=== PATIENT | female | born 1940 | race Caucasian/White ===

== ENCOUNTER 2016-10-18 03:37 | Emergency (ER) | payer MEDICARE, BC ==
[~2016-10-18] VITALS: Ht 170.2 cm; Wt 90.7 kg
[~2016-10-18 03:37] MED LIST: ALBU2.5V5 IH; ANAS1TAB PO; ASPI81TA9 PO; ATEN50TA PO; ATOR10TA60 PO; CHOL100017 PO; CIPR250T30 PO; DILT180C29 PO; FERR-26 PO; LISI10TA2 PO; LOSA50TA6 PO; OMEG-57 PO; PROAIR HFA8.5 GM IH; RIVA10TA PO; SOTA160T PO
[2016-10-18 04:29] LABS: BASO # 0.1 x10^3/uL (0.0-0.2); BASO % 1 % (0-3); EOS % 4 % (0-3); HEMATOCRIT 42.3 % (36.0-47.0); HEMOGLOBIN 13.8 g/dL (12.0-15.5); LYMPH # 2.3 x10^3/uL (1.0-4.8); LYMPH % 28 % (24-48); MEAN CORPUSCULAR HEMOGLOBIN 31 pg (25-35); MEAN CORPUSCULAR HGB CONC 33 g/dL (31-37); MEAN CORPUSCULAR VOLUME 95 fL (79-100); MONO % 8 % (0-9); NEUT % 59 % (31-73); PLATELET COUNT 278 x10^3/uL (140-400); RED BLOOD COUNT 4.45 x10^6/uL (3.50-5.40); RED CELL DISTRIBUTION WIDTH 14.5 % (11.5-14.5); WHITE BLOOD COUNT 8.4 x10^3/uL (4.0-11.0)
[2016-10-18 04:47] LABS: CREATININE 0.9 mg/dL (0.6-1.0); GFR 60.9; POTASSIUM 3.9 mmol/L (3.5-5.1)
[2016-10-18 04:53] LABS: ALBUMIN 3.6 g/dL (3.4-5.0); DIRECT BILIRUBIN 0.1 mg/dL (0.0-0.2); TOTAL BILIRUBIN 0.4 mg/dL (0.2-1.0); TOTAL PROTEIN 6.6 g/dL (6.4-8.2)
--- NOTE | 2016-10-18 05:13 | PHYS DOC ---
Past Medical History Past Medical History: A-Fib, Arrhythmia, Cancer, High Cholesterol, Hypertension , Other Additional Past Medical Histor: breast and lung cancer Past Surgical History: Hysterectomy, Other Additional Past Surgical Histo: trach, left masectomy, right upper lobectomy, left lower lobe removed Alcohol Use: Occasionally Drug Use: None Adult General Chief Complaint Chief Complaint: Palpitations HPI HPI 76-year-old female presenting the emergency department with fluttering since proximally 10 PM tonight. She denies chest pain or shortness of breath. She denies diaphoresis nausea vomiting. Location chest. Duration intermittent. She describes it as feeling an irregular heartbeat. She has a history of A. fib. Symptoms are nonradiating. No specific timing. No alleviating or exacerbating factors. Review of Systems Review of Systems ROS negative for chest pain shortness of breath nausea vomiting diaphoresis abdominal pain. All other review of systems is negative unless otherwise noted in history of present illness. Allergies Allergies Allergies Coded Allergies Type Severity Reaction Last Updated Verified No Known Drug Allergies 05/12/16 No Physical Exam Physical Exam Constitutional: Well developed, well nourished, no acute distress, non-toxic appearance. [] HENT: Normocephalic, atraumatic, bilateral external ears normal, oropharynx moist, no oral exudates, nose normal. [] Eyes: PERRLA, EOMI, conjunctiva normal, no discharge. Neck: Normal range of motion, no tenderness, supple, no stridor. [] Cardiovascular:Heart rate regular rhythm, no murmur Lungs & Thorax: Bilateral breath sounds clear to auscultation [] Abdomen: Bowel sounds normal, soft, no tenderness, no masses, no pulsatile masses. Skin: Warm, dry, no erythema, no rash. [] Back: No tenderness, no CVA tenderness. Extremities: No tenderness, no cyanosis, no clubbing, ROM intact, no edema. Neurologic: Alert and oriented X 3, normal motor function, normal sensory function, no focal deficits noted. [] Psychologic: Affect normal, judgement normal, mood normal. [] Current Patient Data Vital Signs Vital Signs Date Time Temp Pulse Resp B/P Pulse Ox O2 Delivery O2 Flow Rate FiO2 10/18/16 03:41 97.8 111 20 145/100 97 Room Air 97.8 Lab Values Laboratory Tests Test 10/18/16 04:05 White Blood Count 8.4x10^3/uL (4.0-11.0) Red Blood Count 4.45x10^6/uL (3.50-5.40) Hemoglobin 13.8g/dL (12.0-15.5) Hematocrit 42.3% (36.0-47.0) Mean Corpuscular Volume 95fL (79-100) Mean Corpuscular Hemoglobin 31pg (25-35) Mean Corpuscular Hemoglobin Concent 33g/dL (31-37) Red Cell Distribution Width 14.5% (11.5-14.5) Platelet Count 278x10^3/uL (140-400) Neutrophils (%) (Auto) 59% (31-73) Lymphocytes (%) (Auto) 28% (24-48) Monocytes (%) (Auto) 8% (0-9) Eosinophils (%) (Auto) 4% (0-3) H Basophils (%) (Auto) 1% (0-3) Neutrophils # (Auto) 5.0x10^3uL (1.8-7.7) Lymphocytes # (Auto) 2.3x10^3/uL (1.0-4.8) Monocytes # (Auto) 0.7x10^3/uL (0.0-1.1) Eosinophils # (Auto) 0.3x10^3/uL (0.0-0.7) Basophils # (Auto) 0.1x10^3/uL (0.0-0.2) Sodium Level 146mmol/L (136-145) H Potassium Level 3.9mmol/L (3.5-5.1) Chloride Level 109mmol/L (98-107) H Carbon Dioxide Level 25mmol/L (21-32) Anion Gap 12 (6-14) Blood Urea Nitrogen 15mg/dL (7-20) Creatinine 0.9mg/dL (0.6-1.0) Estimated GFR (Cockcroft-Gault) 60.9 Glucose Level 123mg/dL (70-99) H Calcium Level 9.0mg/dL (8.5-10.1) Total Bilirubin 0.4mg/dL (0.2-1.0) Direct Bilirubin 0.1mg/dL (0.0-0.2) Aspartate Amino Transferase (AST) 14U/L (15-37) L Alanine Aminotransferase (ALT) 22U/L (14-59) Alkaline Phosphatase 107U/L (46-116) Troponin I Quantitative < 0.017ng/mL (0.000-0.055) QI-Mtd-Y-Type Natriuretic Peptide 331pg/mL (0-449) Total Protein 6.6g/dL (6.4-8.2) Albumin 3.6g/dL (3.4-5.0) Lipase 198U/L (73-393) Laboratory Tests 10/18/16 04:05 Laboratory Tests 10/18/16 04:05 EKG EKG EKG shows a irregular rhythm with a regular rate. Ninole is leftward. Intervals within normal limits. ST segments congruent. Radiology/Procedures Radiology/Procedures [] Chest x-ray similar to previous. No definite infiltrate. No pneumothorax. Course & Med Decision Making Course & Med Decision Making Pertinent Labs and Imaging studies reviewed. (See chart for details) 76-year-old female presenting to the emergency department today with palpitations. She has a history of A. fib and has A. fib on EKG without tachycardia. Vital signs initially her heart rate was 110. Without any intervention the patient's heart rate came down to 80 within 30 minutes. Otherwise mildly hypertensive at 145. Afebrile. Physical exam unremarkable. CBC unremarkable. Chemistry panel showed mild hyperglycemia. Otherwise negative troponin. Chest x-ray unremarkable for acute pathology. Similar to previous. On second evaluation the patient's heart rate was in the 80s. She was feeling asymptomatic. CHADS VASC score of 4. (Hypertension female and age over 75). She likely would benefit from warfarin therapy. I will refer her to her primary care physician to initiate this over the next 2-3 days. She was subsequently discharged home to follow up with her primary care physician for outpatient workup and care. After discussing with the patient about the need for warfarin, it appears the patient is on an oral anticoagulant which should be sufficient for anticoagulation. Dragon Disclaimer Dragon Disclaimer This electronic medical record was generated, in whole or in part, using a voice recognition dictation system. Departure Departure Impression: Primary Impression: Palpitation Disposition: 01 HOME, SELF-CARE Condition: STABLE Referrals: TOY DAWSON MD (PCP) Patient Instructions: Atrial Fibrillation, [id number] Additional Instructions: Thank you for allowing us to participate in your care today. You likely would benefit from anticoagulation for your atrial fibrillation. Follow-up with your primary care physician in 2-3 days. Followup with your primary care physician in 3 days if your symptoms do not improve. If you do not have a primary care provider you can ask for a list of our primary care providers. Return to the emergency department you have any new or concerning findings. This should be evaluated by the primary care physician and any necessary consulting services for continued management within a few days after discharge. Return to emergency room if you have any new or concerning symptoms including but not limited to fever, chills, nausea, vomiting, intractable pain, any new rashes, chest pain, shortness of air, uncontrolled bleeding, difficulty breathing, and/or vision loss. BETY PAZ MD Oct 18, 2016 05:13
[2016-10-18 05:22] VITALS: BP 115/69
--- NOTE | 2016-10-18 07:44 | RAD ---
Indication: Palpitation and fatigue. Technique: Upright portable chest radiograph was obtained. Comparison is from October 11, 2016. Findings: Linear band of suspected scarring is noted in the right lung base. The heart is not enlarged. There is no definite heart failure. Leads overlie the patient. Right apical density is similar to prior exam, based on prior CT this may represent radiation change related to known lung cancer. Continued follow-up CTs would be beneficial. Impression: No acute thoracic findings.
--- NOTE | 2016-10-18 11:35 | EKG ---
[facility] [address] [place] [address] Test Date: 2016-10-18 Test Time: 03:46:37 Pat Name: MARGARITO SELF Department: Room: Gender: F Intervention Specialist: : 1940 Requested By: BETY PAZ Order Number: [id number] Reading MD: Measurements Intervals [place] Rate: 92 P: LA: QRS: -14 QRSD: 74 T: 97 QT: 370 QTc: 463 Interpretive Statements IRREGULAR RHYTHM, NO P-WAVE FOUND LEFTWARD AXIS T ABNORMALITY IN HIGH LATERAL LEADS RI6.01 Unconfirmed report No previous ECG available for comparison
== END 2016-10-18 05:31 | disposition home or self-care (01) ==
LOC: ER 03:37
DX: R00.2 Palpitations (principal); I48.91 Unspecified atrial fibrillation; E78.00 Pure hypercholesterolemia, unspecified; I10 Essential (primary) hypertension
CPT/HCPCS: 36415; 71010; 80048; 80076; 83690; 83880; 84484; 85027; 93005; 99285-25

== ENCOUNTER → 2016-11-13 | Outpatient (CLI) | payer MEDICARE, BC ==
[2016-10-18 05:22] VITALS: BP 115/69
--- NOTE | 2016-11-13 10:29 | RAD ---
Indication: Six-month follow-up of lung carcinoma. Axial imaging through the chest was performed without contrast. Comparison is made with prior CT from 05/05/2016. No axillary lymphadenopathy is identified. Small lymph nodes in the paratracheal location appears stable. No hilar lymphadenopathy is detected. No pericardial or pleural effusion is detected. Previously noted streaky and glass opacity in the right upper lobe is again noted. There is some adjacent nodularity, largest proximal 11 mm in size and similar to prior. The multiple additional tiny nodular opacities are present. These appear to be slightly larger when compared with prior exam. Calcified granulomas are also noted. A nodular density in the right lower lobe image 49 appears slightly larger measuring 6 mm compared with 4 mm on prior exam. The upper abdomen is unremarkable. The bony structures are nonacute. Impression: Slight worsening in the appearance of the chest when compared with study from April. Nodular densities in the right upper lobe and right lower lobe have all increased slightly in size and may represent metastatic nodules. No definite thoracic lymphadenopathy or effusion is detected. PQRS Compliance Statement: One or more of the following individualized dose reduction techniques were utilized for this examination: 1. Automated exposure control 2. Adjustment of the mA and/or kV according to patient size 3. Use of iterative reconstruction technique
== END | disposition home or self-care (01) ==
LOC: CT 14:02
PROVIDERS: ATTEND Radiology Radiation Oncology
DX: C34.90 Malignant neoplasm of unspecified part of unspecified bronchus or lung (principal)
CPT/HCPCS: 71250

== ENCOUNTER 2016-12-04 12:29 | Inpatient (IN) | payer MEDICARE, BC ==
[~2016-12-04] VITALS: Ht 170.2 cm; Wt 92.1 kg
[~2016-12-04 12:29] MED LIST changes: +ASPI-482 PO; +DILT360C PO
--- NOTE | 2016-12-04 12:53 | PHYS DOC ---
Past Medical History Past Medical History: A-Fib, Arrhythmia, Cancer, High Cholesterol, Hypertension , Other Additional Past Medical Histor: breast and lung cancer Past Surgical History: Hysterectomy, Other Additional Past Surgical Histo: trach, left masectomy, right upper lobectomy, left lower lobe removed Alcohol Use: Occasionally Drug Use: None Adult General Chief Complaint Chief Complaint: SHORTNESS OF BREATH HPI HPI Patient is a 76 year old male who presents with was of breath and wheezing. According to patient she started feeling poorly about a week ago with diarrhea fevers and chills and a nonproductive cough. She was seen by her primary care physician partially 3 days ago started Medrol Dosepak. Today she followed up and was positive for influenza. She denies any fevers chills or productive cough this time. She complains about a nonproductive cough and wheezing. She states she sore from coughing so much. She does have a past medical history of breast cancer, lung cancer with right and left lobectomy. Review of Systems Review of Systems Constitutional: Denies fever or chills [] Eyes: Denies change in visual acuity, redness, or eye pain [] HENT: Denies nasal congestion or sore throat [] Respiratory: Positive for cough and shortness of breath Cardiovascular: No additional information not addressed in HPI [] GI: Denies abdominal pain, nausea, vomiting, bloody stools or diarrhea [] : Denies dysuria or hematuria [] Musculoskeletal: Denies back pain or joint pain [] Integument: Denies rash or skin lesions [] Neurologic: Denies headache, focal weakness or sensory changes [] Endocrine: Denies polyuria or polydipsia [] Current Medications Current Medications Current Medications Medications (Trade) Dose Ordered Sig/Lanie Start Time Stop Time Status Last Admin Dose Admin Albuterol/ Ipratropium (Duoneb) 3 ml 1X ONCE 12/04/16 14:00 12/04/16 14:07 DC Azithromycin (Zithromax 500mg Ivpb For Omni) 250 ml @ 250 mls/hr 1X ONCE 12/04/16 14:00 12/04/16 14:59 12/04/16 14:22 250 MLS/HR Allergies Allergies Allergies Coded Allergies Type Severity Reaction Last Updated Verified No Known Drug Allergies 05/12/16 No Physical Exam Physical Exam Constitutional: Well developed, well nourished, no acute distress, non-toxic appearance. [] HENT: Normocephalic, atraumatic, bilateral external ears normal, oropharynx moist, no oral exudates, nose normal. [] Eyes: PERRLA, EOMI, conjunctiva normal, no discharge. [] Neck: Normal range of motion, no tenderness, supple, no stridor. [] Cardiovascular:Heart rate regular rhythm, no murmur [] Lungs & Thorax: Coarse bilaterally with expiratory wheezing Abdomen: Bowel sounds normal, soft, no tenderness, no masses, no pulsatile masses. [] Skin: Warm, dry, no erythema, no rash. [] Back: No tenderness, no CVA tenderness. [] Extremities: No tenderness, no cyanosis, no clubbing, ROM intact, no edema. [] Neurologic: Alert and oriented X 3, normal motor function, normal sensory function, no focal deficits noted. [] Psychologic: Affect normal, judgement normal, mood normal. [] Current Patient Data Vital Signs Vital Signs Date Time Temp Pulse Resp B/P Pulse Ox O2 Delivery O2 Flow Rate FiO2 12/04/16 12:50 98.5 60 22 148/72 94 Room Air 98.5 Lab Values Laboratory Tests Test 12/04/16 13:20 White Blood Count 8.7x10^3/uL (4.0-11.0) Red Blood Count 4.09x10^6/uL (3.50-5.40) Hemoglobin 12.8g/dL (12.0-15.5) Hematocrit 38.9% (36.0-47.0) Mean Corpuscular Volume 95fL (79-100) Mean Corpuscular Hemoglobin 31pg (25-35) Mean Corpuscular Hemoglobin Concent 33g/dL (31-37) Red Cell Distribution Width 14.1% (11.5-14.5) Platelet Count 232x10^3/uL (140-400) Neutrophils (%) (Auto) 88% (31-73) H Lymphocytes (%) (Auto) 8% (24-48) L Monocytes (%) (Auto) 3% (0-9) Eosinophils (%) (Auto) 0% (0-3) Basophils (%) (Auto) 1% (0-3) Neutrophils # (Auto) 7.6x10^3uL (1.8-7.7) Lymphocytes # (Auto) 0.7x10^3/uL (1.0-4.8) L Monocytes # (Auto) 0.3x10^3/uL (0.0-1.1) Eosinophils # (Auto) 0.0x10^3/uL (0.0-0.7) Basophils # (Auto) 0.1x10^3/uL (0.0-0.2) Platelet Estimate Pending Prothrombin Time 16.3SEC (11.7-14.0) H Prothrombin Time INR 1.4 (0.8-1.1) H Sodium Level 140mmol/L (136-145) Potassium Level 4.1mmol/L (3.5-5.1) Chloride Level 105mmol/L (98-107) Carbon Dioxide Level 25mmol/L (21-32) Anion Gap 10 (6-14) Blood Urea Nitrogen 17mg/dL (7-20) Creatinine 0.9mg/dL (0.6-1.0) Estimated GFR (Cockcroft-Gault) 60.9 Glucose Level 162mg/dL (70-99) H Calcium Level 9.0mg/dL (8.5-10.1) Magnesium Level 1.8mg/dL (1.8-2.4) Total Bilirubin 0.3mg/dL (0.2-1.0) Direct Bilirubin 0.1mg/dL (0.0-0.2) Aspartate Amino Transferase (AST) 18U/L (15-37) Alanine Aminotransferase (ALT) 17U/L (14-59) Alkaline Phosphatase 99U/L (46-116) Creatine Kinase 71U/L (26-192) Creatine Kinase MB (Mass) 0.7ng/mL (0.0-3.6) Creatine Kinase MB Relative Index 1.0% (0-4) Troponin I Quantitative < 0.017ng/mL (0.000-0.055) PF-Yga-I-Type Natriuretic Peptide 1808pg/mL (0-449) H Total Protein 7.0g/dL (6.4-8.2) Albumin 3.4g/dL (3.4-5.0) Thyroid Stimulating Hormone (TSH) 0.590uIU/mL (0.358-3.74) Laboratory Tests 12/04/16 13:20 Laboratory Tests 12/04/16 13:20 EKG EKG Irregular rhythm with a rate of [address] elevations or T-wave inversions, Leftward axis, as interpreted by me. Radiology/Procedures Radiology/Procedures [facility] [address] [place] [address] IMAGING REPORT Signed PATIENT: MARGARITO SELF ACCOUNT: [id number] : 1940 LOCATION: ER AGE: 76 SEX: F EXAM STATUS: PRE ER ORD. PHYSICIAN: DARIA KUMAR MD REASON: soa PROCEDURE: CHEST PA & LATERAL Chest, 2 views, 12/04/2016: History: Cough Comparison is made to a study from 10/18/2016. The heart size is within normal limits. There is calcific plaquing of the aorta. The pulmonary vascularity is normal. There is linear scarring in the right base. Surgical clips are present medially in the right lower chest. There is a small right apical pleural-parenchymal opacity with faint adjacent pulmonary nodularity. This appears to be unchanged. It was better delineated on the 11/13/2016 CT study. There are new mild streaky left basilar opacities partially obscuring the hemidiaphragm. There is no evidence of pleural fluid. IMPRESSION: 1. Right apical pleural-parenchymal opacities appear to be unchanged since 10/18/2016. By history this is a treated lung malignancy. 2. Mild right basilar scarring. 3. Minimal left basilar linear atelectasis. DICTATED and SIGNED BY: FELECIA CROWELL MD DATE: 12/04/16 1328 CC: DARIA KUMAR MD; EDNA VAZQUEZ MD ~ Impressions: copd excerbation Course & Med Decision Making Course & Med Decision Making Pertinent Labs and Imaging studies reviewed. (See chart for details) S x-ray labs show any acute abdomen allergies. Patient's been given azithromycin IV, a Medrol and duo nebs and will be admitted to Dr. Vazquez with pulmonary consultation. Dragon Disclaimer Dragon Disclaimer This electronic medical record was generated, in whole or in part, using a voice recognition dictation system. Departure Departure Impression: Primary Impression: COPD exacerbation Disposition: ADMITTED INPATIENT Admitting Physician: Edna Vazquez Condition: STABLE Referrals: EDNA VAZQUEZ MD (PCP) DARIA KUMAR MD Dec 04, 2016 12:53
--- NOTE | 2016-12-04 13:35 | RAD ---
Chest, 2 views, 12/04/2016: History: Cough Comparison is made to a study from 10/18/2016. The heart size is within normal limits. There is calcific plaquing of the aorta. The pulmonary vascularity is normal. There is linear scarring in the right base. Surgical clips are present medially in the right lower chest. There is a small right apical pleural-parenchymal opacity with faint adjacent pulmonary nodularity. This appears to be unchanged. It was better delineated on the 11/13/2016 CT study. There are new mild streaky left basilar opacities partially obscuring the hemidiaphragm. There is no evidence of pleural fluid. IMPRESSION: 1. Right apical pleural-parenchymal opacities appear to be unchanged since 10/18/2016. By history this is a treated lung malignancy. 2. Mild right basilar scarring. 3. Minimal left basilar linear atelectasis.
[2016-12-04 13:43] LABS: BASO # 0.1 x10^3/uL (0.0-0.2); BASO % 1 % (0-3); EOS % 0 % (0-3); HEMATOCRIT 38.9 % (36.0-47.0); HEMOGLOBIN 12.8 g/dL (12.0-15.5); LYMPH # 0.7 x10^3/uL (1.0-4.8); LYMPH % 8 % (24-48); MEAN CORPUSCULAR HEMOGLOBIN 31 pg (25-35); MEAN CORPUSCULAR HGB CONC 33 g/dL (31-37); MEAN CORPUSCULAR VOLUME 95 fL (79-100); MONO % 3 % (0-9); NEUT % 88 % (31-73); PLATELET COUNT 232 x10^3/uL (140-400); RED BLOOD COUNT 4.09 x10^6/uL (3.50-5.40); RED CELL DISTRIBUTION WIDTH 14.1 % (11.5-14.5); WHITE BLOOD COUNT 8.7 x10^3/uL (4.0-11.0)
[2016-12-04 13:52] LABS: INR 1.4 (0.8-1.1); PROTHROMBIN TIME PATIENT 16.3 SEC (11.7-14.0)
[2016-12-04 13:56] LABS: CREATININE 0.9 mg/dL (0.6-1.0); GFR 60.9; POTASSIUM 4.1 mmol/L (3.5-5.1)
[2016-12-04] MEDS ORDERED: IPRATRPIUM/ALBUTEROL 0.5/2.5MG 3 ML NEBU. NEB ONE (14:00)
[2016-12-04] MEDS ORDERED: AZITHRMYCN 500MG IVPB FOR OMNI 250 ML IV ONE (14:00)
[2016-12-04 14:02] LABS: ALBUMIN 3.4 g/dL (3.4-5.0); DIRECT BILIRUBIN 0.1 mg/dL (0.0-0.2); MAGNESIUM 1.8 mg/dL (1.8-2.4); TOTAL BILIRUBIN 0.3 mg/dL (0.2-1.0)
[2016-12-04 14:09] LABS: CKMB MASS 0.7 ng/mL (0.0-3.6)
[2016-12-04] MEDS ORDERED: methylPREDNISolone SOD SUCC PF 125 MG/2 ML VIAL. IV ONE (14:30)
[2016-12-04] MEDS ORDERED: ONDANSETRON PF 4 MG/2 ML VIAL. IV PRN (14:30)
--- NOTE | 2016-12-04 15:42 | ACF ---
Admission Forms Criteria COPD Clinical Indications for Admission to Inpatient Care (Place 'X' for any and all applicable criteria): Admission is indicated for ANY ONE of the following (1)(2)(3): [X]I. Acute exacerbation by high-risk comorbidity (e.g., pneumonia, dysrhythmia, heart failure, pleural effusion, pneumothorax) or severe underlying COPD (e.g., steroid dependent) [ ]II. Inpatient admission required rather than observation care (see Chronic Obstructive Pulmonary Disease: Observation Care) because of ANY ONE of the following: [ ]a) New or pre-existing signs or symptoms of COPD (eg, dyspnea or Tachypnea at rest or with minimal activity) that persist despite outpatient and observation care treatment [ ]b) New-onset hypoxemia (room air SaO2 less than 90%, PO2 less than 60 mm Hg (8.0 kPa)) that persists despite outpatient and observation care treatment [ ]c) Worsening of pre-existing hypoxemia (eg, new or increased requirement for supplemental oxygen to maintain oxygenation at baseline level) that persists despite outpatient and observation care treatment, with oxygen treatment needs performable only in acute inpatient setting [ ]d) Hypercarbia (PCO2 greater than 40 mm Hg (5.3 kPa))-induced respiratory acidosis (pH less than 7.35) that persists despite outpatient and observation care treatment [ ]e) Supplemental oxygen or respiratory treatments for over 24 hours that are performable only in acute inpatient setting [ ]f) Chest tube placement with active evacuation (e.g., suction, drainage) (5) [ ]g) Other condition, treatment or monitoring requiring inpatient admission [ ]III. Planned invasive surgical or diagnostic procedures requiring acute- care hospitalization [ ]IV. Acute respiratory failure (e.g., uncompensated hypercarbia, severe hypoxemia) [ ]V. Severe comorbid condition (e.g., severe steroid myopathy, acute vertebral fracture) that has acutely worsened pulmonary function [ ]. Confusion state, lethargy, obtundation, stupor or coma Extended stay beyond goal length of stay may be needed for (31)(32): [ ]a ) Respiratory Failure. [ ]b) Severe or persisting hypoxemia or hypercarbia [ ]c) Severe or persistent dyspnea [ ]d) Comorbidities (e.g. chronic heart failure, atrial fibrillation with rapid response, pneumonia) [ ]e) Malnutrition The original [facility] content created by [facility] has been revised. The portions of the content which have been revised are identified through the use of italic text or in bold, and [facility] has neither reviewed nor approved the modified material. All other unmodified content is copyright [facility]. Please see references footnoted in the original [facility] edition 2016 Admission Criteria Met?: Yes LATRICE VEE. Dec 04, 2016 15:42
[2016-12-04 15:53] LABS: BILIRUBIN,URINE NEGATIVE (NEG); GLUCOSE,URINE NEGATIVE (NEG); NITRITE,URINE NEGATIVE (NEG); PROTEIN,URINE NEGATIVE (NEG-TRACE); UROBILINOGEN,URINE 0.2 mg/dL (0.2 mg/dL)
[2016-12-04 16:14] LABS: BACTERIA,URINE FEW /HPF (0-FEW); SQUAMOUS EPITHELIAL CELL,UR FEW /LPF; WBC,URINE OCC /HPF (0-4)
[2016-12-04 19:00] VITALS: BP 104/69
[2016-12-04 19:56] LABS: % BASOS 2 % (0-3); PLT ESTIMATE ADEQUATE (ADEQUATE)
[2016-12-04] MEDS ORDERED: OSELTAMIVIR 30 MG CAPSULE PO SCH (21:00)
[2016-12-04] MEDS ORDERED: GUAIFENESIN DM 200MG/20MG 10 ML SYRUP. PO PRN (21:00)
[2016-12-04] MEDS ORDERED: ATEN50TA PO (21:53)
[2016-12-04] MEDS ORDERED: NON FORMULARY ITEM (Albuterol Sulfate (Proair Hfa Inhaler) 2 PUFF) IH SCH (22:15)
[2016-12-04] MEDS: RIVAROXABAN 10 MG TABLET. PO SCH (22:43)
[2016-12-04] MEDS: ATORVASTATIN CALCIUM 10 MG TABLET. PO SCH (22:43)
[2016-12-04 23:00] VITALS: BP 118/45
[2016-12-04] MEDS: ALBUTEROL SULFATE 2.5 MG/3 ML NEBU. INH PRN (23:22)
[2016-12-05] MEDS: ANTI-COAG MONITOR BY PHARMACY. MC PRN ×2 (02:07→10:38)
[2016-12-05 03:00] VITALS: BP 143/67
[2016-12-05 04:00] LABS: BASO % 0 % (0-3); EOS % 0 % (0-3); HEMATOCRIT 38.8 % (36.0-47.0); HEMOGLOBIN 12.7 g/dL (12.0-15.5); LYMPH # 0.7 x10^3/uL (1.0-4.8); LYMPH % 13 % (24-48); MEAN CORPUSCULAR HEMOGLOBIN 31 pg (25-35); MEAN CORPUSCULAR HGB CONC 33 g/dL (31-37); MEAN CORPUSCULAR VOLUME 94 fL (79-100); MONO % 4 % (0-9); NEUT % 82 % (31-73); PLATELET COUNT 221 x10^3/uL (140-400); RED BLOOD COUNT 4.12 x10^6/uL (3.50-5.40); RED CELL DISTRIBUTION WIDTH 13.9 % (11.5-14.5); WHITE BLOOD COUNT 5.5 x10^3/uL (4.0-11.0)
[2016-12-05 04:55] LABS: CALCIUM 8.7 mg/dL (8.5-10.1); CREATININE 0.9 mg/dL (0.6-1.0); GFR 60.9; POTASSIUM 4.2 mmol/L (3.5-5.1)
[2016-12-05 07:00] VITALS: BP 138/72
[2016-12-05] MEDS ORDERED: PREDNISONE 20 MG TABLET PO ONE (08:15)
--- NOTE | 2016-12-05 08:26 | PDOC1 ---
History and Physical Date of Admission Date of Admission DATE: 12/04/16 Identification/Chief Complaint Chief Complaint Difficulties breathing Source Source: Patient History of Present Illness History of Present Illness Pt states that she has been ill since last weekend. Her had a cold which she thought she had caught. She saw Dr. Vazquez earlier this weekend and was started on a low dose steroid. She did not feel that she was getting better and seemed to have increased difficulty breathing She came to see Dr. Vazquez yesterday and tested positive for the flu; admitted to the hospital for failing outpatient treatment. Pt has history of lung cancer x2, s/p resection. She also has history of pulmonary embolism. Past Medical History Cardiovascular: AFIB, HTN, Hyperlipidemia Pulmonary: COPD, Pulmonary embolus, Other GI: No pertinent hx Heme/Onc: Cancer (Lung Cancerx2, Breast Cancer) Hepatobiliary: No pertinent hx Psych: No pertinent hx Rheumatologic: No pertinent hx Infectious disease: No pertinent hx ENT: No pertinent hx Renal/: No pertinent hx Endocrine: No pertinent hx Dermatology: No pertinent hx Past Surgical History Past Surgical History: Mastectomy, Hysterectomy, Other (RLL and YENI lobectomy) Family History Family History: Cancer (Father- leukemia, Brother- colon cancer), Other (Sister - Brain aneurysm) Social History Smoke: Quit ALCOHOL: none Drugs: None Current Problem List Problem List Problems Medical Problems: (1) COPD exacerbation Status: Acute Problems: Current Medications Current Medications Current Medications Azithromycin (Zithromax 500mg Ivpb For Omni) 250 ml @ 250 mls/hr 1X ONCE IV Last administered on 12/04/16 14:22; Start 12/04/16 at 14:00; Stop 12/04/16 at 14:59; Status DC Albuterol/ Ipratropium (Duoneb) 3 ml 1X ONCE NEB Last administered on 14:31; Start 12/04/16 at 14:00; Stop 12/04/16 at 14:07; Status DC Methylprednisolone Sodium Succinate (Solu-Medrol 125mg Vial) 125 mg 1X ONCE IV Last administered on 12/04/16t 15:08; Start 12/04/16 at 14:30; Stop 12/04/16 at 14:33; Status DC Ondansetron HCl (Zofran) 4 mg PRN Q8HRS PRN IV NAUSEA/VOMITING; Start 12/04/16 at 14:30; Stop 12/05/16 at 14:29 Oseltamivir Phosphate (Tamiflu) 30 mg BID PO Last administered on 12/04/16 21: 48; Start 12/04/16 at 21:00; Stop 12/05/16 at 08:01; Status DC Guaifenesin (Robitussin Dm) 10 ml PRN Q6HRS PRN PO COUGH Last administered on 21:48; Start 12/04/16 at 21:00 Albuterol Sulfate (Ventolin Neb Soln) 2.5 mg PRN QID PRN INH SHORTNESS OF BREATH Last administered on 12/04/16 23:22; Start 12/04/16 at 22:15 Atorvastatin Calcium (Lipitor) 10 mg HS PO ; Start 12/05/16 at 21:00; Stop 12/05 at 21:00; Status DC Non-Formulary Medication 2 puff PRN Q4-6HRS IH ; Start 12/04/16 at 22:15; Status UNV Rivaroxaban (Xarelto) 20 mg HS PO ; Start 12/05/16 at 21:00; Stop 12/05/16 at 21 :00; Status DC Rivaroxaban (Xarelto) 20 mg HS PO Last administered on 12/04/16 22:43; Start 12/04/16 at 22:30 Atorvastatin Calcium (Lipitor) 10 mg HS PO Last administered on 12/04/16 22:43 ; Start 12/04/16 at 22:30 Info (Anti-Coagulation Monitoring By Pharmacy) 1 each PRN DAILY PRN MC SEE COMMENTS Last administered on 12/05/16 02:07; Start 12/04/16 at 22:30 Oseltamivir Phosphate (Tamiflu) 75 mg BID PO ; Start 12/05/16 at 09:00; Stop at 08:59 Aspirin (Ecotrin) 81 mg DAILY PO ; Start 12/05/16 at 09:00; Status UNV Atenolol (Tenormin) 50 mg DAILY PO ; Start 12/05/16 at 09:00; Status UNV Losartan Potassium (Cozaar) 50 mg DAILY PO ; Start 12/05/16 at 09:00; Status UNV Active Scripts Active Reported Atenolol 50 Mg Tablet 1 Tab PO DAILY Aspir 81 (Aspirin) 81 Mg Tablet.dr 81 Mg PO DAILY Losartan Potassium 50 Mg Tablet 50 Mg PO DAILY Proair Hfa Inhaler (Albuterol Sulfate) 8.5 Gm Hfa.aer.ad 2 Puff IH PRN Q4-6HRS Xarelto (Rivaroxaban) 10 Mg Tablet 20 Mg PO HS Atorvastatin Calcium 10 Mg Tablet 10 Mg PO HS Albuterol Sulfate Neb Soln (Albuterol Sulfate) 2.5 Mg/3 Ml Vial.neb 2.5 Mg IH PRN QID PRN Allergies Allergies: Coded Allergies: Lisinopril (Verified Adverse Reaction, Intermediate, Cough, 12/05/16) ROS General: YES: Chills, Fatigue PSYCHOLOGICAL ROS: No: Anxiety, Depression Eyes: No Decreased vision, No Eye Pain HEENT: YES: Nasal discharge, Sore Throat, No: Nasal congestion ALLERGY AND IMMUNOLOGY: YES: Post Nasal Drip, No: Hives Hematological and Lymphatic: No: Bleeding Problems, Blood Clots Respiratory: YES: Cough, Shortness of breath, No: Sputum Changes Cardiovascular: No Chest Pain, No Edema, No Palpitations Gastrointestinal: No Abdominal Pain, No Diarrhea, No Nausea, No Vomiting Genitourinary: No Dysuria, No Urgency Musculoskeletal: Yes Joint Pain, No Muscle Pain Neurological: No Confusion, No Headaches, No Numbness/Tingling Skin: No Rash, No Skin Lesion Changes Physical Exam General: Alert, Oriented X3, Cooperative HEENT: Atraumatic, PERRLA, EOMI, Mucous membr. moist/pink Lungs: Other (rhonchi and wheezing throughout, worse on the right than the left ) Heart: RRR, no rubs, no gallops, no murmurs Abdomen: Normal bowel sounds, Soft, No tenderness, No hepatosplenomegaly Extremities: No clubbing, No cyanosis, No edema Skin: No rashes, No breakdown, No significant lesion Neuro: Normal speech, Cranial nerves 3-12 NL Psych/Mental Status: Mental status NL, Mood NL Vitals Vitals Vital Signs Date Time Temp Pulse Resp B/P Pulse Ox O2 Delivery O2 Flow Rate FiO2 12/05/16 03:00 97.6 54 16 143/67 96 97.6 12/04/16 23:22 Room Air Labs Labs Laboratory Tests Test 12/04/16 13:20 12/04/16 15:40 12/04/16 22:00 12/05/16 03:00 White Blood Count 8.7x10^3/uL (4.0-11.0) 5.5x10^3/uL (4.0-11.0) Red Blood Count 4.09x10^6/uL (3.50-5.40) 4.12x10^6/uL (3.50-5.40) Hemoglobin 12.8g/dL (12.0-15.5) 12.7g/dL (12.0-15.5) Hematocrit 38.9% (36.0-47.0) 38.8% (36.0-47.0) Mean Corpuscular Volume 95fL (79-100) 94fL (79-100) Mean Corpuscular Hemoglobin 31pg (25-35) 31pg (25-35) Mean Corpuscular Hemoglobin Concent 33g/dL (31-37) 33g/dL (31-37) Red Cell Distribution Width 14.1% (11.5-14.5) 13.9% (11.5-14.5) Platelet Count 232x10^3/uL (140-400) 221x10^3/uL (140-400) Neutrophils (%) (Auto) 88% (31-73) 82% (31-73) Lymphocytes (%) (Auto) 8% (24-48) 13% (24-48) Monocytes (%) (Auto) 3% (0-9) 4% (0-9) Eosinophils (%) (Auto) 0% (0-3) 0% (0-3) Basophils (%) (Auto) 1% (0-3) 0% (0-3) Neutrophils # (Auto) 7.6x10^3uL (1.8-7.7) 4.6x10^3uL (1.8-7.7) Lymphocytes # (Auto) 0.7x10^3/uL (1.0-4.8) 0.7x10^3/uL (1.0-4.8) Monocytes # (Auto) 0.3x10^3/uL (0.0-1.1) 0.2x10^3/uL (0.0-1.1) Eosinophils # (Auto) 0.0x10^3/uL (0.0-0.7) 0.0x10^3/uL (0.0-0.7) Basophils # (Auto) 0.1x10^3/uL (0.0-0.2) 0.0x10^3/uL (0.0-0.2) Segmented Neutrophils % 89% (35-66) Band Neutrophils % 1% (0-9) Lymphocytes % 5% (24-48) Monocytes % 3% (0-10) Basophils % 2% (0-3) Platelet Estimate Adequate (ADEQUATE) Prothrombin Time 16.3SEC (11.7-14.0) Prothromb Time International Ratio 1.4 (0.8-1.1) Sodium Level 140mmol/L (136-145) 144mmol/L (136-145) Potassium Level 4.1mmol/L (3.5-5.1) 4.2mmol/L (3.5-5.1) Chloride Level 105mmol/L (98-107) 106mmol/L (98-107) Carbon Dioxide Level 25mmol/L (21-32) 29mmol/L (21-32) Anion Gap 10 (6-14) 9 (6-14) Blood Urea Nitrogen 17mg/dL (7-20) 19mg/dL (7-20) Creatinine 0.9mg/dL (0.6-1.0) 0.9mg/dL (0.6-1.0) Estimated GFR (Cockcroft-Gault) 60.9 60.9 Glucose Level 162mg/dL (70-99) 148mg/dL (70-99) Calcium Level 9.0mg/dL (8.5-10.1) 8.7mg/dL (8.5-10.1) Magnesium Level 1.8mg/dL (1.8-2.4) Total Bilirubin 0.3mg/dL (0.2-1.0) Direct Bilirubin 0.1mg/dL (0.0-0.2) Aspartate Amino Transf (AST/SGOT) 18U/L (15-37) Alanine Aminotransferase (ALT/SGPT) 17U/L (14-59) Alkaline Phosphatase 99U/L (46-116) Creatine Kinase 71U/L (26-192) Creatine Kinase MB (Mass) 0.7ng/mL (0.0-3.6) Creatine Kinase MB Relative Index 1.0% (0-4) Troponin I Quantitative < 0.017ng/mL (0.000-0.055) < 0.017ng/mL (0.000-0.055) < 0.017ng/mL (0.000-0.055) JN-Vze-R-Type Natriuretic Peptide 1808pg/mL (0-449) Total Protein 7.0g/dL (6.4-8.2) Albumin 3.4g/dL (3.4-5.0) Thyroid Stimulating Hormone (TSH) 0.590uIU/mL (0.358-3.74) Urine Collection Type Unknown Urine Color Yellow Urine Clarity Clear Urine pH 6.0 Urine Specific [place] 1.010 Urine Protein Negativemg/dL (NEG-TRACE) Urine Glucose (UA) Negativemg/dL (NEG) Urine Ketones (Stick) Negativemg/dL (NEG) Urine Blood Small (NEG) Urine Nitrite Negative (NEG) Urine Bilirubin Negative (NEG) Urine Urobilinogen Dipstick 0.2mg/dL (0.2 mg/dL) Urine Leukocyte Esterase Negative (NEG) Urine RBC 1-2/HPF (0-2) Urine WBC Occ/HPF (0-4) Urine Squamous Epithelial Cells Few/LPF Urine Bacteria Few/HPF (0-FEW) Laboratory Tests Test 12/04/16 13:20 12/04/16 15:40 12/04/16 22:00 12/05/16 03:00 White Blood Count 8.7x10^3/uL (4.0-11.0) 5.5x10^3/uL (4.0-11.0) Red Blood Count 4.09x10^6/uL (3.50-5.40) 4.12x10^6/uL (3.50-5.40) Hemoglobin 12.8g/dL (12.0-15.5) 12.7g/dL (12.0-15.5) Hematocrit 38.9% (36.0-47.0) 38.8% (36.0-47.0) Mean Corpuscular Volume 95fL (79-100) 94fL (79-100) Mean Corpuscular Hemoglobin 31pg (25-35) 31pg (25-35) Mean Corpuscular Hemoglobin Concent 33g/dL (31-37) 33g/dL (31-37) Red Cell Distribution Width 14.1% (11.5-14.5) 13.9% (11.5-14.5) Platelet Count 232x10^3/uL (140-400) 221x10^3/uL (140-400) Neutrophils (%) (Auto) 88% (31-73) 82% (31-73) Lymphocytes (%) (Auto) 8% (24-48) 13% (24-48) Monocytes (%) (Auto) 3% (0-9) 4% (0-9) Eosinophils (%) (Auto) 0% (0-3) 0% (0-3) Basophils (%) (Auto) 1% (0-3) 0% (0-3) Neutrophils # (Auto) 7.6x10^3uL (1.8-7.7) 4.6x10^3uL (1.8-7.7) Lymphocytes # (Auto) 0.7x10^3/uL (1.0-4.8) 0.7x10^3/uL (1.0-4.8) Monocytes # (Auto) 0.3x10^3/uL (0.0-1.1) 0.2x10^3/uL (0.0-1.1) Eosinophils # (Auto) 0.0x10^3/uL (0.0-0.7) 0.0x10^3/uL (0.0-0.7) Basophils # (Auto) 0.1x10^3/uL (0.0-0.2) 0.0x10^3/uL (0.0-0.2) Segmented Neutrophils % 89% (35-66) Band Neutrophils % 1% (0-9) Lymphocytes % 5% (24-48) Monocytes % 3% (0-10) Basophils % 2% (0-3) Platelet Estimate Adequate (ADEQUATE) Prothrombin Time 16.3SEC (11.7-14.0) Prothromb Time International Ratio 1.4 (0.8-1.1) Sodium Level 140mmol/L (136-145) 144mmol/L (136-145) Potassium Level 4.1mmol/L (3.5-5.1) 4.2mmol/L (3.5-5.1) Chloride Level 105mmol/L (98-107) 106mmol/L (98-107) Carbon Dioxide Level 25mmol/L (21-32) 29mmol/L (21-32) Anion Gap 10 (6-14) 9 (6-14) Blood Urea Nitrogen 17mg/dL (7-20) 19mg/dL (7-20) Creatinine 0.9mg/dL (0.6-1.0) 0.9mg/dL (0.6-1.0) Estimated GFR (Cockcroft-Gault) 60.9 60.9 Glucose Level 162mg/dL (70-99) 148mg/dL (70-99) Calcium Level 9.0mg/dL (8.5-10.1) 8.7mg/dL (8.5-10.1) Magnesium Level 1.8mg/dL (1.8-2.4) Total Bilirubin 0.3mg/dL (0.2-1.0) Direct Bilirubin 0.1mg/dL (0.0-0.2) Aspartate Amino Transf (AST/SGOT) 18U/L (15-37) Alanine Aminotransferase (ALT/SGPT) 17U/L (14-59) Alkaline Phosphatase 99U/L (46-116) Creatine Kinase 71U/L (26-192) Creatine Kinase MB (Mass) 0.7ng/mL (0.0-3.6) Creatine Kinase MB Relative Index 1.0% (0-4) Troponin I Quantitative < 0.017ng/mL (0.000-0.055) < 0.017ng/mL (0.000-0.055) < 0.017ng/mL (0.000-0.055) SJ-Wyb-M-Type Natriuretic Peptide 1808pg/mL (0-449) Total Protein 7.0g/dL (6.4-8.2) Albumin 3.4g/dL (3.4-5.0) Thyroid Stimulating Hormone (TSH) 0.590uIU/mL (0.358-3.74) Urine Collection Type Unknown Urine Color Yellow Urine Clarity Clear Urine pH 6.0 Urine Specific [place] 1.010 Urine Protein Negativemg/dL (NEG-TRACE) Urine Glucose (UA) Negativemg/dL (NEG) Urine Ketones (Stick) Negativemg/dL (NEG) Urine Blood Small (NEG) Urine Nitrite Negative (NEG) Urine Bilirubin Negative (NEG) Urine Urobilinogen Dipstick 0.2mg/dL (0.2 mg/dL) Urine Leukocyte Esterase Negative (NEG) Urine RBC 1-2/HPF (0-2) Urine WBC Occ/HPF (0-4) Urine Squamous Epithelial Cells Few/LPF Urine Bacteria Few/HPF (0-FEW) VTE Prophylaxis Ordered VTE Prophylaxis Devices: Yes VTE Pharmacological Prophylaxi: No Assessment/Plan Assessment/Plan Pt is a 76yo CF admitted for COPD Exacerbation 2/2 Influenza A 1)COPD Exacerbation- 2/2 Influenza A. Pulmonary was consulted in the ER. Pt has been started on Tamiflu and received a dose of IV steroids yesterday. She is feeling better but lungs still tight with rhonchi and wheezing. Started Prednisone 60mg. Sputum is not purulent, holding off on abx for now. 2)Hx Lung Ca 3)Hx Pulmonary Embolism 4)Afib- rate and rhythm controlled. Pt more on the bradycardic side, CTM. Pt continued on her Atenolol 50mg and Xarelto 20mg 5)HTN- well controlled. Pt continued on Atenolol 50mg and Losartan 50mg 6)Pre-diabetes 7)Abnormal U/A- equivocal. Pt asymptomatic. Culture pending LORI HUFF MD Dec 05, 2016 08:26
[2016-12-05] MEDS: OSELTAMIVIR 75 MG CAPSULE PO SCH ×2 (08:59→20:48)
[2016-12-05] MEDS: PROMETH/CODEINE 6.25/10MG 5 ML SYRUP. PO PRN ×2 (08:59→20:58)
[2016-12-05] MEDS: LOSARTAN POTASSIUM 50 MG TABLET. PO SCH (08:59)
[2016-12-05] MEDS: ASPIRIN ENTERIC COATED 81 MG TABLET.DR. PO SCH (09:00)
[2016-12-05] MEDS: ATENOLOL 50 MG TABLET PO SCH (09:00)
[2016-12-05] MEDS: ALBUTEROL SULFATE 2.5 MG/3 ML NEBU. INH PRN (09:44)
[2016-12-05] MEDS: methylPREDNISolone SOD SUCC PF 40 MG/ML VIAL. IV SCH ×2 (10:00→20:48)
--- NOTE | 2016-12-05 10:01 | PDOC ---
Provider Note Provider Note [id number] acute resp fail abnl cxr ae of copd flu A tamiflu steroid bronchodilator ics ROSA JOEL MD Dec 05, 2016 10:01
[2016-12-05] MEDS: PANTOPRAZOLE 40 MG TABLET. PO SCH (10:16)
[2016-12-05 11:00] VITALS: BP 126/69
[2016-12-05] MEDS: BUDESONIDE 0.5 MG/2 ML NEBU NEB SCH ×2 (11:09→19:40)
[2016-12-05] MEDS: IPRATRPIUM/ALBUTEROL 0.5/2.5MG 3 ML NEBU. NEB SCH ×3 (11:09→19:40)
--- NOTE | 2016-12-05 12:18 | EKG ---
[facility] [address] [place] [address] Test Date: 2016-12-04 Test Time: 13:24:37 Pat Name: MARGARITO SELF Department: Room: 4 Gender: F Induction Coordination Power Engineer: : [id number] Requested By: DARIA KUMAR Order Number: [id number] Reading MD: Measurements Intervals [place] Rate: 56 P: MO: QRS: -17 QRSD: 74 T: 31 QT: 466 QTc: 452 Interpretive Statements IRREGULAR RHYTHM, NO P-WAVE FOUND LEFTWARD AXIS OTHERWISE NORMAL ECG RI6.01 No previous ECG available for comparison
[2016-12-05 15:00] VITALS: BP 130/57
[2016-12-05 19:59] VITALS: BP 135/45
[2016-12-05] MEDS: RIVAROXABAN 10 MG TABLET. PO SCH (20:48)
[2016-12-05] MEDS: ATORVASTATIN CALCIUM 10 MG TABLET. PO SCH (20:48)
[2016-12-05] MEDS ORDERED: ATORVASTATIN CALCIUM 10 MG TABLET. PO SCH (21:00)
[2016-12-05] MEDS ORDERED: RIVAROXABAN 10 MG TABLET. PO SCH (21:00)
[2016-12-05 23:59] VITALS: BP 156/61
[2016-12-06 03:59] VITALS: BP 166/71
[2016-12-06 07:00] VITALS: BP 167/61
[2016-12-06] MEDS: IPRATRPIUM/ALBUTEROL 0.5/2.5MG 3 ML NEBU. NEB SCH ×4 (07:12→21:19)
[2016-12-06] MEDS: BUDESONIDE 0.5 MG/2 ML NEBU NEB SCH ×2 (07:12→21:19)
[2016-12-06] MEDS: PANTOPRAZOLE 40 MG TABLET. PO SCH (07:47)
--- NOTE | 2016-12-06 08:50 | PDOC ---
PULMONARY PROGRESS NOTES Subjective has sob, cough better, has nasal congestion, chest tightness. Vitals Vital Signs Date Time Temp Pulse Resp B/P Pulse Ox O2 Delivery O2 Flow Rate FiO2 12/06/16 08:00 Room Air 12/06/16 07:14 96 12/06/16 07:00 96.3 96 20 167/61 96.3 12/05/16 08:00 2.0 Comments ros as mentioned as above, other sys otherwise neg General: Alert HEENT: Other (nc at, perrl, throat clear, nose, inflamed mucosa) Lungs: Wheezing, Crackles Cardiovascular: Other (irreg) Abdomen: Soft, Non-tender, Other (no mass) Extremities: No Edema Skin: Warm Labs Laboratory Tests Test 12/04/16 13:20 12/04/16 15:40 12/04/16 22:00 12/05/16 03:00 White Blood Count 8.7x10^3/uL (4.0-11.0) 5.5x10^3/uL (4.0-11.0) Red Blood Count 4.09x10^6/uL (3.50-5.40) 4.12x10^6/uL (3.50-5.40) Hemoglobin 12.8g/dL (12.0-15.5) 12.7g/dL (12.0-15.5) Hematocrit 38.9% (36.0-47.0) 38.8% (36.0-47.0) Mean Corpuscular Volume 95fL (79-100) 94fL (79-100) Mean Corpuscular Hemoglobin 31pg (25-35) 31pg (25-35) Mean Corpuscular Hemoglobin Concent 33g/dL (31-37) 33g/dL (31-37) Red Cell Distribution Width 14.1% (11.5-14.5) 13.9% (11.5-14.5) Platelet Count 232x10^3/uL (140-400) 221x10^3/uL (140-400) Neutrophils (%) (Auto) 88% (31-73) 82% (31-73) Lymphocytes (%) (Auto) 8% (24-48) 13% (24-48) Monocytes (%) (Auto) 3% (0-9) 4% (0-9) Eosinophils (%) (Auto) 0% (0-3) 0% (0-3) Basophils (%) (Auto) 1% (0-3) 0% (0-3) Neutrophils # (Auto) 7.6x10^3uL (1.8-7.7) 4.6x10^3uL (1.8-7.7) Lymphocytes # (Auto) 0.7x10^3/uL (1.0-4.8) 0.7x10^3/uL (1.0-4.8) Monocytes # (Auto) 0.3x10^3/uL (0.0-1.1) 0.2x10^3/uL (0.0-1.1) Eosinophils # (Auto) 0.0x10^3/uL (0.0-0.7) 0.0x10^3/uL (0.0-0.7) Basophils # (Auto) 0.1x10^3/uL (0.0-0.2) 0.0x10^3/uL (0.0-0.2) Segmented Neutrophils % 89% (35-66) Band Neutrophils % 1% (0-9) Lymphocytes % 5% (24-48) Monocytes % 3% (0-10) Basophils % 2% (0-3) Platelet Estimate Adequate (ADEQUATE) Prothrombin Time 16.3SEC (11.7-14.0) Prothromb Time International Ratio 1.4 (0.8-1.1) Sodium Level 140mmol/L (136-145) 144mmol/L (136-145) Potassium Level 4.1mmol/L (3.5-5.1) 4.2mmol/L (3.5-5.1) Chloride Level 105mmol/L (98-107) 106mmol/L (98-107) Carbon Dioxide Level 25mmol/L (21-32) 29mmol/L (21-32) Anion Gap 10 (6-14) 9 (6-14) Blood Urea Nitrogen 17mg/dL (7-20) 19mg/dL (7-20) Creatinine 0.9mg/dL (0.6-1.0) 0.9mg/dL (0.6-1.0) Estimated GFR (Cockcroft-Gault) 60.9 60.9 Glucose Level 162mg/dL (70-99) 148mg/dL (70-99) Calcium Level 9.0mg/dL (8.5-10.1) 8.7mg/dL (8.5-10.1) Magnesium Level 1.8mg/dL (1.8-2.4) Total Bilirubin 0.3mg/dL (0.2-1.0) Direct Bilirubin 0.1mg/dL (0.0-0.2) Aspartate Amino Transf (AST/SGOT) 18U/L (15-37) Alanine Aminotransferase (ALT/SGPT) 17U/L (14-59) Alkaline Phosphatase 99U/L (46-116) Creatine Kinase 71U/L (26-192) Creatine Kinase MB (Mass) 0.7ng/mL (0.0-3.6) Creatine Kinase MB Relative Index 1.0% (0-4) Troponin I Quantitative < 0.017ng/mL (0.000-0.055) < 0.017ng/mL (0.000-0.055) < 0.017ng/mL (0.000-0.055) FL-Ysj-Z-Type Natriuretic Peptide 1808pg/mL (0-449) Total Protein 7.0g/dL (6.4-8.2) Albumin 3.4g/dL (3.4-5.0) Thyroid Stimulating Hormone (TSH) 0.590uIU/mL (0.358-3.74) Urine Collection Type Unknown Urine Color Yellow Urine Clarity Clear Urine pH 6.0 Urine Specific [place] 1.010 Urine Protein Negativemg/dL (NEG-TRACE) Urine Glucose (UA) Negativemg/dL (NEG) Urine Ketones (Stick) Negativemg/dL (NEG) Urine Blood Small (NEG) Urine Nitrite Negative (NEG) Urine Bilirubin Negative (NEG) Urine Urobilinogen Dipstick 0.2mg/dL (0.2 mg/dL) Urine Leukocyte Esterase Negative (NEG) Urine RBC 1-2/HPF (0-2) Urine WBC Occ/HPF (0-4) Urine Squamous Epithelial Cells Few/LPF Urine Bacteria Few/HPF (0-FEW) Medications Active Scripts Medications Dose Route/Sig Days Date Category Atenolol 50 Mg Tablet 1 Tab PO DAILY 2/17/17 Reported Aspir 81 (Aspirin) 81 Mg Tablet.dr 81 Mg PO DAILY 11/17/16 Reported Losartan Potassium 50 Mg Tablet 50 Mg PO DAILY 05/06/16 Reported Proair Hfa Inhaler (Albuterol Sulfate) 8.5 Gm Hfa.aer.ad 2 Puff IH PRN Q4-6HRS 05/20/15 Reported Xarelto (Rivaroxaban) 10 Mg Tablet 20 Mg PO HS 05/20/15 Reported Atorvastatin Calcium 10 Mg Tablet 10 Mg PO HS 05/10/14 Reported Albuterol Sulfate Neb Soln (Albuterol Sulfate) 2.5 Mg/3 Ml Vial.neb 2.5 Mg IH PRN QID PRN 01/15/14 Reported Comments cxr reviewed, 1. Right apical pleural-parenchymal opacities appear to be unchanged since 10/18/2016. By history this is a treated lung malignancy. 2. Mild right basilar scarring. 3. Minimal left basilar linear atelectasis. Impression . imp: Acute hypoxemic resp fail abnl cxr ae of copd influenza a hx of lung ca hx of breast hx of pe paf allergic rhinitis Plan . plan: 02 titration bronchodilator qid ics solumedrol 40 mg bid tamiflu xeralto, monitor for bleeding protonix for stress ulcer prophylaxis add bruce gerber w rn, pt ROSA JOEL MD Dec 06, 2016 08:50
[2016-12-06] MEDS: LOSARTAN POTASSIUM 50 MG TABLET. PO SCH (09:00)
[2016-12-06] MEDS: OSELTAMIVIR 75 MG CAPSULE PO SCH ×2 (09:00→20:39)
[2016-12-06] MEDS: ATENOLOL 50 MG TABLET PO SCH (09:00)
[2016-12-06] MEDS: ASPIRIN ENTERIC COATED 81 MG TABLET.DR. PO SCH (09:00)
[2016-12-06] MEDS: methylPREDNISolone SOD SUCC PF 40 MG/ML VIAL. IV SCH ×2 (09:00→20:39)
[2016-12-06 11:00] VITALS: BP 168/65
[2016-12-06] MEDS: ANTI-COAG MONITOR BY PHARMACY. MC PRN (12:20)
--- NOTE | 2016-12-06 13:46 | PDOC ---
SUBJECTIVE Subjective Pt states that she is feeling a little bit better; still having some tightness in her chest. Nose is dry and a little congested. OBJECTIVE Vital Signs Vital Signs Date Time Temp Pulse Resp B/P Pulse Ox O2 Delivery O2 Flow Rate FiO2 12/06/16 11:30 96 Room Air 12/06/16 11:00 95.4 58 20 168/65 97 Room Air 95.4 12/06/16 09:00 96 167/61 12/06/16 09:00 96 167/61 12/06/16 08:00 Room Air 12/06/16 07:14 96 Room Air 12/06/16 07:00 96.3 96 20 167/61 94 Room Air 96.3 12/06/16 03:59 97.3 61 18 166/71 93 Room Air 97.3 12/05/16 23:59 97.7 56 18 156/61 95 Room Air 97.7 12/05/16 20:00 Room Air 12/05/16 19:59 98.8 75 20 135/45 95 Room Air 98.8 12/05/16 19:43 96 Room Air 12/05/16 15:40 95 Room Air 12/05/16 15:00 97.7 58 18 130/57 95 Room Air 97.7 I & O Intake and Output 12/06/16 07:00 Intake Total 580 ml Output Total 2 ml Balance 578 ml Intake Oral 580 ml Output Urine Total 2 ml PHYSICAL EXAM Physical Exam General: Alert, Oriented X3, Cooperative HEENT: Atraumatic, PERRLA, EOMI, Mucous membr. moist/pink Lungs: decreased airflow throughout, small amount of wheezing and rhonchi heard most on right Heart: RRR, no rubs, no gallops, no murmurs Abdomen: Normal bowel sounds, Soft, No tenderness, No hepatosplenomegaly Extremities: No clubbing, No cyanosis, No edema Skin: No rashes, No breakdown, No significant lesion Neuro: Normal speech, Cranial nerves 3-12 NL Psych/Mental Status: Mental status NL, Mood NL ASSESSMENT/PLAN Assessment/Plan Pt is a 76yo CF admitted for COPD Exacerbation 2/2 Influenza A 1)COPD Exacerbation- 2/2 Influenza A. Pulmonary was consulted in the ER. Pt has been started on Tamiflu and is on Solumedrol. Sputum is not purulent, holding off on abx for now. 2)Hx Lung Ca 3)Hx Pulmonary Embolism 4)Afib- rate and rhythm controlled. Pt more on the bradycardic side, CTM. Pt continued on her Atenolol 50mg and Xarelto 20mg 5)HTN- moderately controlled. Pt continued on Atenolol 50mg and Losartan 50mg. Will have hydralazine available prn 6)Pre-diabetes 7)Abnormal U/A- equivocal. Pt asymptomatic. Culture showed no growth Problems: LORI HUFF MD Dec 06, 2016 13:46
[2016-12-06] MEDS ORDERED: hydrALAZINE 20 MG/ML VIAL. IVP PRN (14:00)
[2016-12-06 15:00] VITALS: BP 158/77
[2016-12-06] MEDS ORDERED: ATENOLOL 50 MG TABLET PO ONE (16:00)
[2016-12-06 19:00] VITALS: BP 151/78
[2016-12-06] MEDS: RIVAROXABAN 10 MG TABLET. PO SCH (20:39)
[2016-12-06] MEDS: ATORVASTATIN CALCIUM 10 MG TABLET. PO SCH (20:39)
[2016-12-06] MEDS ORDERED: MONTELUKAST SODIUM 10 MG TABLET. PO SCH (21:00)
[2016-12-06] MEDS: PROMETH/CODEINE 6.25/10MG 5 ML SYRUP. PO PRN (21:52)
[2016-12-06 23:00] VITALS: BP 151/69
--- NOTE | 2016-12-07 00:48 | CONS ---
DATE OF CONSULTATION: 12/05/2016 I was asked to see this 76-year-old lady for acute respiratory failure, shortness of breath, wheezing, acute exacerbation of COPD. HISTORY OF PRESENT ILLNESS: She has history of [id number] smoking, stopped smoking about 10 years ago. She does have COPD, is on nightly oxygen. She has been followed by Dr. Carballo. She has history of right upper lobectomy, left lower lobectomy. She developed a nodule in the right upper lobe last year and underwent radiation. She started to have increased shortness of breath, cough, wheezing, nasal congestion, chest tightness, body ache 6 days ago. She was diagnosed with influenza A. She was admitted for further treatment. She does have cough with small amount of sputum production. PAST MEDICAL HISTORY: COPD, lung cancer, breast cancer, atrial fibrillation on Xarelto. ALLERGIES: LISINOPRIL. MEDICATIONS: Currently, she is on azithromycin, albuterol, Atrovent p.r.n. and Tamiflu. SOCIAL HISTORY: History of [id number] smoking, stopped smoking 10 years ago. FAMILY HISTORY: There is no history of lung disease. REVIEW OF SYSTEMS: As mentioned as above, other systems otherwise negative. PHYSICAL EXAMINATION: GENERAL: A well-developed lady. VITAL SIGNS: O2 saturation on 2 liters of oxygen is 95%, respiratory rate 18, heart rate is 52, blood pressure 138/72, temperature 98. HEENT: Normocephalic, atraumatic. Pupils are equal, round, reactive to light. Throat is clear. Nose: There is inflamed mucosa. NECK: There is no JVD, lymphadenopathy or thyromegaly. CARDIOVASCULAR: Regular rate and rhythm. PMI is not displaced. CHEST: Inspection is normal. LUNGS: There is bilateral end expiratory wheezing. ABDOMEN: Soft. Bowel sounds are good. There is no mass. EXTREMITIES: There is trace edema. LYMPHATICS: There is no lymphadenopathy. NEUROLOGIC: Alert and oriented x 3. SKIN: Chronic changes. LABORATORY DATA: I reviewed the following lab data: Chest x-ray shows right apical pleural parenchymal opacities unchanged compared to 10/18/2016 mild basilar scarring, minimal left linear atelectasis. WBC 5.5, hemoglobin 12.7, platelets 221. Sodium 144, potassium 4.2, chloride 106, CO2 of 29, glucose 148. Troponin less than 0.101. INR 1.4. IMPRESSION: 1. Acute hypoxemic respiratory failure, multifactorial in etiology. 2. Acute exacerbation of chronic obstructive pulmonary disease. 3. Acute bronchitis. 4. Influenza A. 5. Abnormal chest x-ray. 6. History of lung cancer. 7. History of breast cancer. 8. Paroxysmal atrial fibrillation on Xarelto. 9. History of breast cancer. 10. Hypertension. 11. Hyperlipidemia. 12. History of pulmonary embolism. PLAN AND RECOMMENDATIONS: 1. Titrate FiO2 to keep O2 saturation 92%. 2. Bronchodilator q.i.d. and p.r.n. shortness of breath. 3. Start Pulmicort b.i.d. 4. Start Solu-Medrol 40 mg IV every 12 hours. 5. Continue Xarelto monitor for bleeding. 6. Add Protonix for stress ulcer prophylaxis. 7. Monitor respiratory status very closely. The findings and recommendations were discussed with the patient, RN and RT. I have answered all of the patient's questions. She understood and agreed to proceed with the plan. ROSA JOEL M.D. : BILLIE/merna JOB#: [id number] / [id number]
[2016-12-07 03:00] VITALS: BP 154/70
[2016-12-07 07:00] VITALS: BP 155/67
[2016-12-07] MEDS: IPRATRPIUM/ALBUTEROL 0.5/2.5MG 3 ML NEBU. NEB SCH (07:52)
[2016-12-07] MEDS: BUDESONIDE 0.5 MG/2 ML NEBU NEB SCH (07:52)
--- NOTE | 2016-12-07 08:16 | PDOC ---
PROGRESS NOTES Subjective Subjective Patient reports she feels much better, feels ready to go home today. Objective Objective Vital Signs Date Time Temp Pulse Resp B/P Pulse Ox O2 Delivery O2 Flow Rate FiO2 12/07/16 07:55 98 Room Air 12/07/16 07:00 98.4 56 17 155/67 98.4 12/07/16 03:00 2.0 Intake and Output 12/07/16 07:00 Intake Total 1620 ml Output Total 3 ml Balance 1617 ml Intake Oral 1620 ml Output Urine Total 3 ml Physical Exam Abdomen: Normal bowel sounds, Soft, No tenderness Heart: Regular rate Extremities: No edema General: Alert, Oriented X3, No acute distress Lungs: Other (BS decreased throughout, few expiratory wheezes, no cough during exam) Assessment Assessment Problems Medical Problems: (1) COPD exacerbation Status: Acute Plan Plan of Care 1. Acute respiratory failure with AE COPD and influenza - much improved. No hypoxia on RA. Home today on Prednisone taper, Tamiflu and her usual inhaler. 2. HTN - fairly well controlled, continue present meds and follow. 3. afib - rate controlled, continue present meds including Xarelto. Comment Review of Relevant I have reviewed the following items dustin (where applicable) has been applied. Labs Microbiology 12/04/16 Blood Culture - Preliminary, Resulted NO GROWTH AFTER 2 DAYS 12/04/16 Urine Culture - Preliminary, Resulted 12/04/16 Urine Culture Result 1 (KELLY) - Preliminary, Resulted Medications Current Medications Azithromycin (Zithromax 500mg Ivpb For Omni) 250 ml @ 250 mls/hr 1X ONCE IV Last administered on 12/04/16 14:22; Start 12/04/16 at 14:00; Stop 12/04/16 at 14:59; Status DC Albuterol/ Ipratropium (Duoneb) 3 ml 1X ONCE NEB Last administered on 14:31; Start 12/04/16 at 14:00; Stop 12/04/16 at 14:07; Status DC Methylprednisolone Sodium Succinate (Solu-Medrol 125mg Vial) 125 mg 1X ONCE IV Last administered on 12/04/16t 15:08; Start 12/04/16 at 14:30; Stop 12/04/16 at 14:33; Status DC Ondansetron HCl (Zofran) 4 mg PRN Q8HRS PRN IV NAUSEA/VOMITING; Start 12/04/16 at 14:30; Stop 12/05/16 at 14:29; Status DC Oseltamivir Phosphate (Tamiflu) 30 mg BID PO Last administered on 12/04/16 21: 48; Start 12/04/16 at 21:00; Stop 12/05/16 at 08:01; Status DC Guaifenesin (Robitussin Dm) 10 ml PRN Q6HRS PRN PO COUGH, 1ST CHOICE Last administered on 12/04/16 21:48; Start 12/04/16 at 21:00 Albuterol Sulfate (Ventolin Neb Soln) 2.5 mg PRN QID PRN INH SHORTNESS OF BREATH Last administered on 12/05/16 09:44; Start 12/04/16 at 22:15 Atorvastatin Calcium (Lipitor) 10 mg HS PO ; Start 12/05/16 at 21:00; Stop 12/05 at 21:00; Status DC Non-Formulary Medication 2 puff PRN Q4-6HRS IH ; Start 12/04/16 at 22:15; Status UNV Rivaroxaban (Xarelto) 20 mg HS PO ; Start 12/05/16 at 21:00; Stop 12/05/16 at 21 :00; Status DC Rivaroxaban (Xarelto) 20 mg HS PO Last administered on 12/06/16 20:39; Start 12/04/16 at 22:30 Atorvastatin Calcium (Lipitor) 10 mg HS PO Last administered on 12/06/16 20:39 ; Start 12/04/16 at 22:30 Info (Anti-Coagulation Monitoring By Pharmacy) 1 each PRN DAILY PRN MC SEE COMMENTS Last administered on 12/06/16 12:20; Start 12/04/16 at 22:30 Oseltamivir Phosphate (Tamiflu) 75 mg BID PO Last administered on 12/06/16 20: 39; Start 12/05/16 at 09:00; Stop 12/10/16 at 08:59 Aspirin (Ecotrin) 81 mg DAILY PO Last administered on 12/06/16 09:00; Start at 09:00 Atenolol (Tenormin) 50 mg DAILY PO Last administered on 12/06/16 09:00; Start 12/05/16 at 09:00 Losartan Potassium (Cozaar) 50 mg DAILY PO Last administered on 12/06/16 09:00 ; Start 12/05/16 at 09:00 Prednisone (Prednisone) 60 mg 1X ONCE PO Last administered on 12/05/16 08:59 ; Start 12/05/16 at 08:15; Stop 12/05/16 at 08:20; Status DC Promethazine HCl/ Codeine (Phenergan With Codeine) 5 ml PRN Q6HRS PRN PO COUGH , 2ND CHOICE Last administered on 12/06/16 21:52; Start 12/05/16 at 08:30 Albuterol/ Ipratropium (Duoneb) 3 ml RTQID NEB Last administered on 12/07/16 07:52; Start 12/05/16 at 12:00 Budesonide (Pulmicort) 0.5 mg RTBID NEB Last administered on 12/07/16 07:52; Start 12/05/16 at 10:00 Methylprednisolone Sodium Succinate (Solu-Medrol 40mg Vial) 40 mg Q12HR IV Last administered on 12/06/16 20:39; Start 12/05/16 at 10:00 Pantoprazole Sodium (Protonix) 40 mg DAILYAC PO Last administered on 12/06/16 07:47; Start 12/05/16 at 10:00 Montelukast Sodium (Singulair) 10 mg QHS PO Last administered on 12/06/16 20: 39; Start 12/06/16 at 21:00 Hydralazine HCl (Apresoline) 10 mg PRN Q4HRS PRN IVP ELEVATED BP, SEE COMMENTS ; Start 12/06/16 at 14:00 Atenolol (Tenormin) 50 mg 1X ONCE PO Last administered on 12/06/16 16:10; Start 12/06/16 at 16:00; Stop 12/06/16 at 16:01; Status DC Active Scripts Active Reported Atenolol 50 Mg Tablet 1 Tab PO DAILY Aspir 81 (Aspirin) 81 Mg Tablet.dr 81 Mg PO DAILY Losartan Potassium 50 Mg Tablet 50 Mg PO DAILY Proair Hfa Inhaler (Albuterol Sulfate) 8.5 Gm Hfa.aer.ad 2 Puff IH PRN Q4-6HRS Xarelto (Rivaroxaban) 10 Mg Tablet 20 Mg PO HS Atorvastatin Calcium 10 Mg Tablet 10 Mg PO HS Albuterol Sulfate Neb Soln (Albuterol Sulfate) 2.5 Mg/3 Ml Vial.neb 2.5 Mg IH PRN QID PRN Vitals/I & O Vital Sign - Last 24 Hours 12/06/16 12/06/16 12/06/16 12/06/16 09:00 09:00 11:00 11:30 Temp 95.4 95.4 Pulse 96 96 58 Resp 20 B/P 167/61 167/61 168/65 Pulse Ox 97 96 O2 Delivery Room Air Room Air 12/06/16 12/06/16 12/06/16 12/06/16 15:00 15:19 16:10 19:00 Temp 97.9 98.1 97.9 98.1 Pulse 62 62 67 Resp 20 20 B/P 158/77 158/77 151/78 Pulse Ox 96 96 95 O2 Delivery Room Air Room Air Room Air 12/06/16 12/06/16 12/06/16 12/06/16 20:00 21:20 21:22 23:00 Temp 98.3 98.3 Pulse 55 Resp 20 B/P 151/69 Pulse Ox 98 98 92 O2 Delivery Room Air Room Air Room Air Nasal Cannula O2 Flow Rate 2.0 12/07/16 12/07/16 12/07/16 03:00 07:00 07:55 Temp 97.5 98.4 97.5 98.4 Pulse 48 56 Resp 17 B/P 154/70 155/67 Pulse Ox 92 92 98 O2 Delivery Nasal Cannula Room Air Room Air O2 Flow Rate 2.0 Intake and Output 12/06/16 12/06/16 12/07/16 15:00 23:00 07:00 Intake Total 480 ml 600 ml 540 ml Output Total 3 ml Balance 480 ml 600 ml 537 ml TOY DAWSON MD Dec 07, 2016 08:16
[2016-12-07] MEDS: PANTOPRAZOLE 40 MG TABLET. PO SCH (08:19)
[2016-12-07] MEDS: ATENOLOL 50 MG TABLET PO SCH (08:19)
[2016-12-07] MEDS: OSELTAMIVIR 75 MG CAPSULE PO SCH (08:19)
[2016-12-07] MEDS: methylPREDNISolone SOD SUCC PF 40 MG/ML VIAL. IV SCH (08:19)
[2016-12-07 08:20] VITALS: BP 155/67
[2016-12-07] MEDS: ASPIRIN ENTERIC COATED 81 MG TABLET.DR. PO SCH (08:20)
[2016-12-07] MEDS: LOSARTAN POTASSIUM 50 MG TABLET. PO SCH (08:20)
[2016-12-07] MEDS ORDERED: PRED20TA PO (08:21)
[2016-12-07] MEDS ORDERED: Promethazine Hcl/Codeine PO (08:21)
[2016-12-07] MEDS ORDERED: OSEL75CA PO (08:21)
--- NOTE | 2016-12-07 09:15 | DS ---
DATE OF DISCHARGE: 12/07/2016 CHIEF COMPLAINT: Shortness of breath. HISTORY OF PRESENT ILLNESS: The patient is a 76-year-old female with a history of COPD who presented to the Emergency Room with the above complaint. She reported a several day history of increasing cough and shortness of breath. She had called our office to report these symptoms earlier in the week and had been started on a prednisone taper. She had been taking this, but continued to feel worse and it became more difficult for her to breathe. When seen in the office on the day of admission, she was in mild respiratory distress. She was positive for influenza A and was sent to the hospital for admission. For further details, see admission history and physical. HOSPITAL COURSE: The patient was started on Tamiflu for treatment of her influenza A. Chest x-ray at admission did not show pneumonia and therefore, antibiotics were not given. She was also started on Solu-Medrol and seen in consultation by Pulmonary Medicine. The patient has had good improvement in her symptoms and in her chest exam with the above treatments. She is breathing comfortably on room air now without any hypoxia. Her cough is very well managed with some codeine cough syrup at night. She reports she is able to move around in her room without getting short of breath. She will be discharged home today to complete the prednisone taper that she was previously prescribed. She will also be given 2 more days of Tamiflu to complete her treatment of the influenza. The patient's other chronic medical problems including hypertension and atrial fibrillation were stable with her home medications and these will be continued. FINAL DIAGNOSES: 1. Acute respiratory failure due to influenza A. 2. Acute exacerbation of chronic obstructive pulmonary disease. 3. Hypertension. 4. History of atrial fibrillation. DISCHARGE MEDICATIONS: Tamiflu 75 mg 1 p.o. b.i.d. x 2 more days, then discontinue; prednisone 20 mg tablets 2 tablets daily for 3 days, then 1 tablet daily for 3 days; codeine cough syrup p.r.n.; albuterol nebulized treatments p.r.n.; aspirin 81 mg daily; atenolol 50 mg daily; atorvastatin 10 mg daily; losartan 50 mg daily; Xarelto 20 mg at bedtime. FOLLOWUP: With Dr. Vazquez in 2-4 weeks. TOY A. KILLAM, MD DR: ARNOLDO/merna JOB#: [id number] / [id number] NIKOLAY
== END 2016-12-07 10:15 | disposition home or self-care (01) | DRG 193 ==
LOC: ER 12:29 → 5 SOUTH 14:20
PROVIDERS: ADMIT Family Medicine; ATTEND Family Medicine
DX: J10.1 Influenza due to other identified influenza virus with other respiratory manifestations (principal); J96.01 Acute respiratory failure with hypoxia; J44.0 Chronic obstructive pulmonary disease with (acute) lower respiratory infection; J44.1 Chronic obstructive pulmonary disease with (acute) exacerbation; E78.5 Hyperlipidemia, unspecified; I10 Essential (primary) hypertension; I48.0 Paroxysmal atrial fibrillation; J20.9 Acute bronchitis, unspecified; J30.9 Allergic rhinitis, unspecified; E78.00 Pure hypercholesterolemia, unspecified; R73.03 Prediabetes; Z80.0 Family history of malignant neoplasm of digestive organs; Z80.6 Family history of leukemia; Z23 Encounter for immunization; Z85.118 Personal history of other malignant neoplasm of bronchus and lung; Z85.3 Personal history of malignant neoplasm of breast; Z86.711 Personal history of pulmonary embolism; Z87.891 Personal history of nicotine dependence; Z90.2 Acquired absence of lung [part of]; Z90.710 Acquired absence of both cervix and uterus; Z88.8 Allergy status to other drugs, medicaments and biological substances; Z90.12 Acquired absence of left breast and nipple
CPT/HCPCS: 36415; 71020; 80048; 80076; 81001; 82553; 83735; 83880; 84443; 84484; 85007; 85027; 85610; 87040; 87086; 93005; 94250; 94640; 94760; 96365; 96375; J0456; J2920; J2930; J7512; J7620; 99285-25

== ENCOUNTER 2017-02-03 18:16 | Emergency (ER) | payer MEDICARE, BC ==
[~2017-02-03] VITALS: Ht 170.2 cm; Wt 93.0 kg
[~2017-02-03 18:16] MED LIST changes: +OSEL75CA PO; +PRED20TA PO; +Promethazine Hcl/Codeine PO
[2017-02-03 18:30] VITALS: BP 165/72
--- NOTE | 2017-02-03 19:21 | PHYS DOC ---
Past Medical History Past Medical History: A-Fib, Arrhythmia, Cancer, High Cholesterol, Hypertension , Other Additional Past Medical Histor: breast and lung cancer Past Surgical History: Hysterectomy, Other Additional Past Surgical Histo: trach, left masectomy, right upper lobectomy, left lower lobe removed Alcohol Use: Occasionally Drug Use: None Adult General Chief Complaint Chief Complaint: BLOOD IN URINE HPI HPI Patient is a 76 year old female who presents with complaint of hematuria. Patient states that she has had worsening symptoms over the past 5-6 days. Patient states that she has had associated left flank pain with her symptoms. Patient rates her pain currently as a 5 out of 10. The patient states that she has had history kidney stones and states that these symptoms are similar. Patient had her urine checked 2 days ago by her primary doctor who noted evidence of blood but no signs of infection. The patient denies any fevers, chest pain, or abdominal pain. Patient states that she started noticing worsening bleeding today and started having worsening pain. After calling her primary physician's office, she was told to come to the emergency department for evaluation. Review of Systems Review of Systems Constitutional: Denies fever or chills [] Eyes: Denies change in visual acuity, redness, or eye pain [] HENT: Denies nasal congestion or sore throat [] Respiratory: Denies cough or shortness of breath [] Cardiovascular: Denies chest pain or edema [] GI: Denies abdominal pain, nausea, vomiting, bloody stools or diarrhea [] : Hematuria [] Musculoskeletal: Left flank pain [] Integument: Denies rash or skin lesions [] Neurologic: Denies headache, focal weakness or sensory changes [] Endocrine: Denies polyuria or polydipsia [] Allergies Allergies Allergies Coded Allergies Type Severity Reaction Last Updated Verified lisinopril Adverse Reaction Intermediate Cough 12/05/16 Yes Physical Exam Physical Exam Constitutional: Alert, afebrile, no acute distress. [] HENT: Normocephalic, atraumatic, bilateral external ears normal, oropharynx moist, no oral exudates, nose normal. [] Eyes: PERRLA, EOMI, conjunctiva normal, no discharge. [] Neck: Normal range of motion, no tenderness, supple, no stridor. [] Cardiovascular:Heart rate regular rhythm, no murmur [] Lungs & Thorax: Bilateral breath sounds clear to auscultation [] Abdomen: Bowel sounds normal, soft, no tenderness, no masses, no pulsatile masses. [] Skin: Warm, dry, no erythema, no rash. [] Back: No midline tenderness, mild left CVA tenderness, no flank ecchymosis. [] Extremities: No tenderness, no cyanosis, no clubbing, ROM intact, no edema. [] Neurologic: Alert and oriented X 3, normal motor function, normal sensory function, no focal deficits noted. [] Current Patient Data Vital Signs Vital Signs Date Time Temp Pulse Resp B/P Pulse Ox O2 Delivery O2 Flow Rate FiO2 02/03/17 18:30 97.9 61 22 165/72 97 Room Air 97.9 Lab Values Laboratory Tests Test 02/03/17 18:45 02/03/17 19:35 Urine Collection Type Unknown Urine Color Red Urine Clarity Cloudy Urine pH 5.5 Urine Specific [place] 1.015 Urine Protein 100mg/dL (NEG-TRACE) Urine Glucose (UA) Negativemg/dL (NEG) Urine Ketones (Stick) Negativemg/dL (NEG) Urine Blood Large (NEG) Urine Nitrite Negative (NEG) Urine Bilirubin Negative (NEG) Urine Urobilinogen Dipstick 0.2mg/dL (0.2 mg/dL) Urine Leukocyte Esterase Small (NEG) Urine RBC Tntc/HPF (0-2) Urine WBC 1-4/HPF (0-4) Urine Squamous Epithelial Cells Few/LPF Urine Amorphous Sediment Present/HPF Urine Bacteria Few/HPF (0-FEW) Urine Mucus Mod/LPF White Blood Count 8.2x10^3/uL (4.0-11.0) Red Blood Count 4.21x10^6/uL (3.50-5.40) Hemoglobin 13.4g/dL (12.0-15.5) Hematocrit 40.1% (36.0-47.0) Mean Corpuscular Volume 95fL (79-100) Mean Corpuscular Hemoglobin 32pg (25-35) Mean Corpuscular Hemoglobin Concent 33g/dL (31-37) Red Cell Distribution Width 14.3% (11.5-14.5) Platelet Count 242x10^3/uL (140-400) Neutrophils (%) (Auto) 59% (31-73) Lymphocytes (%) (Auto) 28% (24-48) Monocytes (%) (Auto) 9% (0-9) Eosinophils (%) (Auto) 3% (0-3) Basophils (%) (Auto) 1% (0-3) Neutrophils # (Auto) 4.8x10^3uL (1.8-7.7) Lymphocytes # (Auto) 2.3x10^3/uL (1.0-4.8) Monocytes # (Auto) 0.7x10^3/uL (0.0-1.1) Eosinophils # (Auto) 0.3x10^3/uL (0.0-0.7) Basophils # (Auto) 0.1x10^3/uL (0.0-0.2) Sodium Level 142mmol/L (136-145) Potassium Level 4.0mmol/L (3.5-5.1) Chloride Level 105mmol/L (98-107) Carbon Dioxide Level 27mmol/L (21-32) Anion Gap 10 (6-14) Blood Urea Nitrogen 20mg/dL (7-20) Creatinine 1.0mg/dL (0.6-1.0) Estimated GFR (Cockcroft-Gault) 53.9 BUN/Creatinine Ratio 20 (6-20) Glucose Level 96mg/dL (70-99) Calcium Level 9.2mg/dL (8.5-10.1) Total Bilirubin 0.4mg/dL (0.2-1.0) Aspartate Amino Transferase (AST) 17U/L (15-37) Alanine Aminotransferase (ALT) 18U/L (14-59) Alkaline Phosphatase 106U/L (46-116) Creatine Kinase 102U/L (26-192) Total Protein 7.3g/dL (6.4-8.2) Albumin 3.8g/dL (3.4-5.0) Albumin/Globulin Ratio 1.1 (1.0-1.7) Laboratory Tests 02/03/17 19:35 Laboratory Tests 02/03/17 19:35 EKG EKG Not performed [] Radiology/Procedures Radiology/Procedures CT of the abdomen and pelvis pending at time of sign out [] Course & Med Decision Making Course & Med Decision Making Pertinent Labs and Imaging studies reviewed. (See chart for details) Patient's blood work was unremarkable. Patient showed hematuria and her urine sample with nonsupportive findings for infection. The patient will receive a CT scan to evaluate for possible ureteral stone. Care of patient was signed out to Dr. Bailey at 2033. Dragon Disclaimer Dragon Disclaimer This electronic medical record was generated, in whole or in part, using a voice recognition dictation system. Departure Departure Impression: Primary Impression: Flank pain Additional Impression: Hematuria Referrals: TOY DAWSON MD (PCP) Problem Qualifiers LISA SNOWDEN MD Feb 03, 2017 19:21
[2017-02-03 19:27] LABS: BILIRUBIN,URINE NEGATIVE (NEG); GLUCOSE,URINE NEGATIVE (NEG); NITRITE,URINE NEGATIVE (NEG); PH,URINE 5.5; PROTEIN,URINE 100 mg/dL (NEG-TRACE); UROBILINOGEN,URINE 0.2 mg/dL (0.2 mg/dL)
[2017-02-03 19:33] LABS: BACTERIA,URINE FEW /HPF (0-FEW); RBC,URINE TNTC /HPF (0-2); SQUAMOUS EPITHELIAL CELL,UR FEW /LPF
[2017-02-03 19:45] LABS: BASO # 0.1 x10^3/uL (0.0-0.2); BASO % 1 % (0-3); EOS % 3 % (0-3); HEMATOCRIT 40.1 % (36.0-47.0); HEMOGLOBIN 13.4 g/dL (12.0-15.5); LYMPH # 2.3 x10^3/uL (1.0-4.8); LYMPH % 28 % (24-48); MEAN CORPUSCULAR HEMOGLOBIN 32 pg (25-35); MEAN CORPUSCULAR HGB CONC 33 g/dL (31-37); MEAN CORPUSCULAR VOLUME 95 fL (79-100); MONO % 9 % (0-9); NEUT % 59 % (31-73); PLATELET COUNT 242 x10^3/uL (140-400); RED BLOOD COUNT 4.21 x10^6/uL (3.50-5.40); RED CELL DISTRIBUTION WIDTH 14.3 % (11.5-14.5); WHITE BLOOD COUNT 8.2 x10^3/uL (4.0-11.0)
[2017-02-03 19:57] LABS: CALCIUM 9.2 mg/dL (8.5-10.1); GFR 53.9
[2017-02-03 20:03] LABS: ALBUMIN 3.8 g/dL (3.4-5.0); ALBUMIN/GLOBULIN RATIO 1.1 (1.0-1.7); TOTAL BILIRUBIN 0.4 mg/dL (0.2-1.0); TOTAL PROTEIN 7.3 g/dL (6.4-8.2)
--- NOTE | 2017-02-03 20:37 | RAD ---
PROCEDURE Abdomen and pelvis CT without contrast. HISTORY Hematuria. TECHNIQUE Computed tomographic images of the abdomen and pelvis were obtained without contrast. One or more of the following individualized dose reduction techniques were utilized for this examination: 1. Automated exposure control; 2. Adjustment of the mA and/or kV according to patient size; 3. Use of iterative reconstruction technique. COMPARISON 02/24/2016 FINDINGS Evaluation of the lower thorax demonstrates atelectasis and pleural-parenchymal scarring. There is a 7 mm nodule within the right lower lobe and 1 cm ground-glass opacity within the right middle lobe. There is a more faint ground-glass opacity measuring 1.0 cm within the right lower lobe. There is coronary artery atherosclerosis. There is a tiny hiatal hernia. No hepatic lesion is seen. There is increased density within the gallbladder likely due to tiny stones. There is a calcification within the pancreatic head, likely vascular or due to the sequela of chronic pancreatitis. The spleen and adrenal glands are unremarkable. There is no evidence of nephrolithiasis or obstructive uropathy. There is slight renal cortical lobulation likely due to scarring. The appendix is unremarkable. No abnormally thickened or dilated loop of bowel is seen. The uterus is surgically absent. There is aortic and aortic branch vessel calcified atherosclerotic plaque. There is mild ectasia of the infrarenal abdominal aorta to a caliber of 2.6 cm. There are degenerative changes throughout the spine. There is no suspicious osseous lesion. IMPRESSION 1. No evidence of nephrolithiasis or obstructive uropathy. 2. Suspected cholelithiasis. 3. 7 mm nodule within the right lower lobe and 1 cm ground-glass nodular opacities within the right upper and lower lobe, increased compared to the prior study. Short-term followup is recommended according to Fleischner society criteria. In a low risk patient: <4mm- No follow up required. >4-6mm- 12 month follow up, if unchanged, no further follow up. >6-8mm- 6-12 month follow up, then at 18-24 months if no change. >8mm- 3, 9, 24 month follow up or consideration of PET/CT. In a high risk patient: <4mm- 12 month follow up, if unchanged then no further follow up. >4-6mm- 6-12 month follow up, then at 18-24 months if no change. >6-8mm- 3-6 month follow up, then at 9-12 months and 24 months if no change. >8mm- 3, 9, 24 month follow up or consideration of PET/CT. Electronically signed by: Sharmin Polanco (Feb 03, 2017 20:37:00)
== END 2017-02-03 21:08 | disposition home or self-care (01) ==
LOC: ER 18:16
DX: R31.9 Hematuria, unspecified (principal); R10.9 Unspecified abdominal pain; E78.00 Pure hypercholesterolemia, unspecified; I10 Essential (primary) hypertension; I48.91 Unspecified atrial fibrillation; Z87.442 Personal history of urinary calculi; Z90.710 Acquired absence of both cervix and uterus; Z88.8 Allergy status to other drugs, medicaments and biological substances
CPT/HCPCS: 36415; 74176; 80053; 81001; 82550; 85027; 87086; 99285-25

== ENCOUNTER → 2017-05-13 | Outpatient (CLI) | payer MEDICARE, BC ==
[~2017-05-13] MED LIST changes: +ASPI-252 PO; +ASPI-612 PO; -ASPI81TA9 PO; +BUDE10.2 IH
--- NOTE | 2017-05-13 11:05 | RAD ---
CT chest without contrast 05/13/2017 Indication: Follow-up stage I right upper lobe lung carcinoma. Comparison: November 13, 2016 CT. Technique: Helical CT acquisition through the chest was performed without contrast. Coronal and sagittal reformations were obtained. PQRS Compliance Statement: One or more of the following individualized dose reduction techniques were utilized for this examination: 1. Automated exposure control 2. Adjustment of the mA and/or kV according to patient size 3. Use of iterative reconstruction technique Findings: Chest: Heart size is normal without significant pericardial effusion. There are three-vessel coronary artery calcifications. The thoracic aorta is normal in caliber with mild scattered calcified atheromatous disease including the origins of the great vessels with luminal patency not assessed due to lack of intravenous contrast. No axillary, mediastinal or obvious hilar lymphadenopathy, though evaluation is limited. Prior right lower lobectomy. The central airways are patent. There is stable peripheral right upper lobe irregular consolidation measuring up to 3.3 cm in maximal oblique AP dimension, previously 3.4 cm when measured in a similar fashion. There are multiple noncalcified nodules in the right upper lobe just inferior to the consolidation similar in size and distribution to prior examination the largest measuring 7 mm (series 3/image 14), previously 7 mm. There is no significant change in multiple irregular small groundglass opacities in the posterior right upper lobe. There are postsurgical changes of a prior left upper lobectomy. There are few scattered subcentimeter noncalcified nodules throughout the left lung with largest measuring 8 mm (series 3 sagittal image 14), previously 8 mm. No pleural effusion or pneumothorax. There are no destructive osseous lesions. Limited images of the upper abdomen: Grossly unremarkable. Impression: 1. Stable right apical fibrosis which may represent post treatment fibrosis, though underlying viable tumor cannot be excluded. 2. Bilateral subcentimeter noncalcified nodules, right greater than left, and right pulmonary groundglass opacities immediately adjacent to the consolidation, unchanged since prior examination, though comparison over multiple prior examinations has been slight interval increase, concerning for pulmonary metastatic disease. 3. No definite thoracic lymphadenopathy.
== END | disposition home or self-care (01) ==
LOC: CT 07:12
PROVIDERS: ATTEND Radiology Radiation Oncology
DX: C34.11 Malignant neoplasm of upper lobe, right bronchus or lung (principal)
CPT/HCPCS: 71250

== ENCOUNTER → 2017-11-16 | Outpatient (CLI) | payer MEDICARE, BC | END | disposition home or self-care (01) | LOC: CT 07:45 | DX: C34.11 Malignant neoplasm of upper lobe, right bronchus or lung (principal); R91.1 Solitary pulmonary nodule | CPT/HCPCS: 71250 ==

== ENCOUNTER → 2018-03-15 | Outpatient (CLI) | payer MEDICARE, BC | END | disposition home or self-care (01) | LOC: US 15:14 | DX: M79.604 Pain in right leg (principal) | CPT/HCPCS: 93926 ==

== ENCOUNTER → 2018-04-04 | Outpatient (CLI) | payer MEDICARE, BC | END | disposition home or self-care (01) | LOC: RAD 11:03 | DX: M17.11 Unilateral primary osteoarthritis, right knee (principal); I77.89 Other specified disorders of arteries and arterioles | CPT/HCPCS: 73552 ==

== ENCOUNTER → 2018-05-17 | Outpatient (CLI) | payer MEDICARE, BC | END | disposition home or self-care (01) | LOC: CT 07:13 | DX: R91.8 Other nonspecific abnormal finding of lung field (principal); I48.0 Paroxysmal atrial fibrillation; I11.0 Hypertensive heart disease with heart failure; I50.9 Heart failure, unspecified; E78.5 Hyperlipidemia, unspecified; E78.00 Pure hypercholesterolemia, unspecified; Z85.118 Personal history of other malignant neoplasm of bronchus and lung; Z86.711 Personal history of pulmonary embolism; Z87.891 Personal history of nicotine dependence; Z90.12 Acquired absence of left breast and nipple; Z92.21 Personal history of antineoplastic chemotherapy; Z87.442 Personal history of urinary calculi | CPT/HCPCS: 71250 ==

== ENCOUNTER → 2018-10-28 | Outpatient (CLI) | payer MEDICARE, BC ==
[2017-09-19 12:39] VITALS: BP 139/52
[~2018-10-28] MED LIST changes: +ALBU2.5V8 IH; +ASPI-630 PO; +BUDE10.22 INH; -FERR-26 PO; +FERR325T14 PO; +LOSA-73 PO; -LOSA50TA6 PO; +MULT-658 PO; -PROAIR HFA8.5 GM IH; +RIVA20TA2 PO
--- NOTE | 2018-10-28 16:11 | RAD ---
Chest, 2 views, 10/28/2018: HISTORY: COPD, cough, previous lung cancer Comparison is made to a study from 09/19/2017. A left-sided transvenous pacemaker has been inserted with 2 leads extending into the right heart. The heart size is normal. There is an irregular parenchymal opacity in the lateral aspect of the right upper lobe, partially obscured by the overlying first rib end. A similar appearance was present on the previous study. There is mild bibasilar scarring. Small pulmonary nodules seen on the 05/17/2018 CT study are not clearly defined radiographically. No new pulmonary abnormality is seen. There is no evidence of pleural fluid. Mild spurring is present in the spine. IMPRESSION: 1. Persistent right upper lobe pleural/parenchymal opacity. CT scanning would best define this process and document stability or progression. 2. Bibasilar scarring. 3. No new chest abnormality is detected. Electronically signed by: Gulshan Mascorro MD (10/28/2018 4:07 PM) [facility]
== END | disposition home or self-care (01) ==
LOC: RAD 12:51
PROVIDERS: ATTEND Nurse Practitioner Gerontology
DX: J44.1 Chronic obstructive pulmonary disease with (acute) exacerbation (principal); R91.8 Other nonspecific abnormal finding of lung field
CPT/HCPCS: 71046

== ENCOUNTER → 2018-11-09 | Outpatient (CLI) | payer MEDICARE, BC ==
[2017-09-19 12:39] VITALS: BP 139/52
[~2018-11-09] MED LIST changes: -BUDE10.22 INH; -MULT-658 PO
--- NOTE | 2018-11-09 13:18 | RAD ---
PQRS Compliance statement: One or more of the following individualized dose reduction techniques were utilized for this examination: 1. Automated exposure control. 2. Adjustment of the mA and/or kV according to patient size. 3. Use of iterative reconstruction technique. Indication:f/u lung ca s/p treatment no contrast prev sent NODULES TECHNIQUE: CT chest without IV contrast with multiplanar reformats. COMPARISON: 05/17/2018 FINDINGS: Heart is normal in size. No pericardial or pleural effusion. Pacemaker leads are seen in the right heart. Coronary artery calcifications. Clear neck base. No enlarged axillary, mediastinal adenopathy. Evaluation of hilar lymphadenopathy is limited due to lack of IV contrast. Status post left mastectomy. Stable spiculated opacity is seen in the right lung apex extending to the pleura measuring 2.7 x 3.3 cm, previously 2.7 x 3.2 cm. Multiple satellite nodules are seen. The represented a nodule measures 8 mm (series 2 image 19), previously 8 mm. Nodule in the subpleural location measures 5 mm, previous confinement (series 2 image 21) (. Relatively stable groundglass nodule is seen in the left lower lobe measuring 10 mm, previously 9 mm (series 2 image 32) is. Stable 1.3 cm nodule in the right lung base (series 2 image 47). Stable 7 mm patchy opacity/nodule in the left lung apex (series 2 image 14). No new nodules. Noncontrast appearance of the liver, spleen, gallbladder, pancreas, adrenals and kidneys within normal limits. No suspicious bony lesion. IMPRESSION: Stable masslike opacity in the right upper lobe with stable satellite nodules. Stable couple of left lung nodules. Follow-up CT chest in 3 months recommended. Electronically signed by: Mitchell Villa DO (11/09/2018 1:13 PM) [id number]
== END | disposition home or self-care (01) ==
LOC: CT 15:12
PROVIDERS: ATTEND Radiology Radiation Oncology
DX: Z08 Encounter for follow-up examination after completed treatment for malignant neoplasm (principal); I25.10 Atherosclerotic heart disease of native coronary artery without angina pectoris; R91.8 Other nonspecific abnormal finding of lung field; Z85.118 Personal history of other malignant neoplasm of bronchus and lung; Z85.3 Personal history of malignant neoplasm of breast; Z90.12 Acquired absence of left breast and nipple
CPT/HCPCS: 71250

== ENCOUNTER → 2019-01-16 | Outpatient (CLI) | payer MEDICARE, BC ==
[2017-09-19 12:39] VITALS: BP 139/52
--- NOTE | 2019-01-16 08:37 | CARD ---
MR#: [id number] Date of Study: 01/16/2019 Ordering Physician: BYRON TAVERA, Referring Physician: BYRON TAVERA, Tech: Diamond Howard [facility] APPROVED REPORT EXAM: Two-dimensional and M-mode echocardiogram with Doppler and color Doppler. Other Information Quality : AverageHR: 76bpm Rhythm : NSR INDICATION Arrhythmia 2D DIMENSIONS RVDd2.9 (2.9-3.5cm)Left Atrium(2D)4.4 (1.6-4.0cm) IVSd1.1 (0.7-1.1cm)Aortic Root(2D)2.8 (2.0-3.7cm) LVDd4.3 (3.9-5.9cm)LVOT Diameter1.9 (1.8-2.4cm) PWd1.1 (0.7-1.1cm)LVDs3.1 (2.5-4.0cm) FS (%) 29.8 %SV48.8 ml LVEF(%)55.0 (>50%) Aortic Valve AoV Peak Silvio.120.5cm/sAoV VTI28.7cm AO Peak GR.5.8mmHgLVOT Peak Silvio.72.1cm/s AO Mean GR.3mmHgAVA (VMAX)1.72cm2 ALEISHA (VTI)1.70cm2 Mitral Valve MV E Iaxdpqss851.3cm/sMV DECEL [id number] MV A Vksdjhkf29.5cm/sE/A Ratio2.0 Pulmonary Valve PV Peak Rxtolgts36.0cm/s Tricuspid Valve TR P. Ohoftfkv438ao/sRAP [id number] TR Peak Gr.56utRdPKCH93eiGh LEFT VENTRICLE The left ventricle is normal size. There is borderline to mild concentric left ventricular hypertroph y. Left ventricle systolic function is normal. The Ejection Fraction is 55%. There is normal LV segme ntal wall motion. Transmitral Doppler flow pattern is Grade II-pseudonormal filling dynamics. RIGHT VENTRICLE The right ventricle is normal size. There is normal right ventricular wall thickness. The right ventr icular systolic function is normal. ATRIA The left atrium is mildly dilated. The right atrium size is normal. The interatrial septum is intact with no evidence for an atrial septal defect or patent foramen ovale as noted on 2-D or Doppler imagi ng. AORTIC VALVE The aortic valve is calcified but opens well. The aortic valve is trileaflet. Doppler and Color Flow revealed no significant aortic regurgitation. There is no significant aortic valvular stenosis. MITRAL VALVE The mitral valve is normal in structure and function. There is no evidence of mitral valve prolapse. There is no mitral valve stenosis. Doppler and Color-flow revealed mild mitral regurgitation. TRICUSPID VALVE The tricuspid valve is normal in structure and function. Doppler and Color Flow revealed trace tricus pid regurgitation. There is mild pulmonary hypertension. The PA pressure was estimated at 33 mmHg. Th ere is no tricuspid valve prolapse or vegetation. There is no tricuspid valve stenosis. PULMONIC VALVE The pulmonic valve is not well visualized. GREAT VESSELS The aortic root is normal in size. The ascending aorta is normal in size. The IVC is normal in size a nd collapses >50% with inspiration. PERICARDIAL EFFUSION There is no evidence of significant pericardial effusion. Critical Notification Critical Value: No <Conclusion> Left ventricle systolic function is normal. The Ejection Fraction is 55%. There is normal LV segmental wall motion. Transmitral Doppler flow pattern is Grade II-pseudonormal filling dynamics. The left atrium is mildly dilated. Mild mitral regurgitation. Trace tricuspid regurgitation. There is mild pulmonary hypertension. The PA pressure was estimated at 33 mmHg. There is no evidence of significant pericardial effusion. Signed by : Caesar Aleman, Electronically Approved : 01/16/2019 08:36:41
== END | disposition home or self-care (01) ==
LOC: ECHO 07:21
PROVIDERS: ATTEND Internal Medicine Cardiovascular Disease
DX: I34.0 Nonrheumatic mitral (valve) insufficiency (principal); I27.20 Pulmonary hypertension, unspecified; I47.1 Supraventricular tachycardia
CPT/HCPCS: 93306

== ENCOUNTER → 2019-05-18 | Outpatient (CLI) | payer MEDICARE, BC ==
[2019-04-28 15:30] VITALS: BP 139/68
[~2019-05-18] MED LIST changes: +BUDE10.22 INH; +MULT-658 PO
--- NOTE | 2019-05-18 08:58 | RAD ---
Chest CT without contrast Clinical indications: Right lung cancer. History of lobectomy and radiation therapy. Follow-up study. COMPARISON: Chest CT dated November 09, 2018. TECHNIQUE: Noncontrast helical CT scanning of the chest was performed. Without IV contrast, the sensitivity to detect organ pathology is decreased. PQRS compliance Statement One or more of the following individualized dose reduction techniques were utilized for this study: 1. Automated exposure control 2. Adjustment of the mA and/or kV according to patient size 3. Use of iterative reconstruction technique FINDINGS: The left breast is surgically absent. No enlarged axillary lymphadenopathy is seen. Small mediastinal lymph nodes are seen which are stable. No enlarging mediastinal lymphadenopathy is evident. Evaluation for hilar lymphadenopathy is difficult without IV contrast. No new enlargement of either hilum is seen to indicate enlarging hilar lymphadenopathy. No focal aneurysmal dilatation of the thoracic aorta is seen. Heart size is within normal limits. No pericardial effusion is seen. Extensive calcified atheromatous disease of the coronary arteries is seen. Again seen is a spiculated mass lesion within the lateral right apex extending to the pleura. On image 15 and series 2, the greatest AP measurement is 4.3 cm. The transverse measurement is 2.9 cm. On the previous study, same measurements were 4.7 cm and 2.6 cm respectively. Slight difference in measurements may be due to the slight difference in the plane that the CT study was obtained. Just below this level specifically image 16 and series 2, the AP and transverse dimensions are 3.0 cm and 3.2 cm respectively. Measurements on the previous study were 2.8 cm and 3.2 cm respectively. Therefore, no significant change in size. Adjacent satellite nodules have not changed significantly. There is some vague groundglass infiltrate within the posterior aspect of the right upper lobe which could represent radiation pneumonitis. On image 27 series 2, there is a small subcentimeter posterior right upper lobe lung nodule which is stable. Within the right lung base just above the right hemidiaphragm, there is a nodule measuring 1.7 cm in greatest AP transverse dimension. This measured 1.5 cm in greatest AP dimension previously. Therefore, no significant change in size. Ill-defined round groundglass lung infiltrate in the posterior right costophrenic angle is unchanged. Within the central aspect of the left upper lobe, there is a lung nodule measuring 12 mm. This has not changed significantly. Within the medial aspect of the superior segment of the left lower lobe, there is a 16 mm lung nodule. This measured 12 mm previously. Therefore, there has been a mild increase in size. On image 41 and series 2, there is a new small lung nodule within the lateral left lower lobe adjacent to the pleura measuring 5 mm. This was not seen previously. No lung consolidation with air bronchograms is seen. No pleural effusion or pneumothorax is seen. The proximal bronchial tree is unchanged. Old right rib cage fractures are seen. No lytic process is seen. No adrenal mass is seen. IMPRESSION: Since the prior study November 09, 2018, there is mild increase in superior segment left lower lobe lung nodule and a new subcentimeter lung nodule within the lateral basal segment of the left lower lobe. The major lung mass within the lateral right apex with associated satellite nodules has not changed significantly. The other nodules mentioned bilaterally are stable. No enlarging lymphadenopathy. Calcified atheromatous disease of the coronary arteries. Electronically signed by: Adam Tong MD (05/18/2019 8:55 AM) [facility]
== END | disposition home or self-care (01) ==
LOC: CT 07:41
PROVIDERS: ATTEND Radiology Radiation Oncology
DX: C34.31 Malignant neoplasm of lower lobe, right bronchus or lung (principal); I25.10 Atherosclerotic heart disease of native coronary artery without angina pectoris; R91.8 Other nonspecific abnormal finding of lung field
CPT/HCPCS: 71250

== ENCOUNTER → 2019-07-12 | Outpatient (CLI) | payer MEDICARE, BC ==
[2019-04-28 15:30] VITALS: BP 139/68
--- NOTE | 2019-07-14 13:53 | RAD ---
MR#: [id number] Date of Study: 07/12/2019 Ordering Physician: BYRON TAVERA, Referring Physician: BYRON TAVERA, Tech: MARITZA Alvarez, RDMS, RVT APPROVED REPORT Patient Location : OUT-PATIENT Indications HTN, VENOUS INSUFF, HX OF PE PATIENT TAKES XERALTO X 2 YRS, SPIDER VEINS BLE Findings The right great saphenous vein measures 6 mm and the left great saphenous vein measures 7.6 m. The right lesser saphenous vein measures 4.2 mm in the left lesser saphenous vein measures 2.1 mm. Bilateral lesser and greater saphenous veins do not demonstrate any evidence of reflux. Critical Notification Critical Value: No Signed by : Byron Tavera, Electronically Approved : 07/12/2019 11:57:34
== END | disposition home or self-care (01) ==
LOC: US 08:35
PROVIDERS: ATTEND Internal Medicine Cardiovascular Disease
DX: I87.2 Venous insufficiency (chronic) (peripheral) (principal); I10 Essential (primary) hypertension; Z86.711 Personal history of pulmonary embolism; Z87.891 Personal history of nicotine dependence
CPT/HCPCS: 93970

== ENCOUNTER 2019-08-15 05:40 | Emergency (ER) | payer MEDICARE, BC ==
[~2019-08-15] VITALS: Ht 170.2 cm; Wt 93.4 kg
[2019-08-15 06:02] VITALS: BP 153/74
--- NOTE | 2019-08-15 06:39 | PHYS DOC ---
Past Medical History Past Medical History: Cancer, Hypertension Additional Past Medical Histor: breast and lung cancer Past Surgical History: Hysterectomy, Pacemaker, Other Additional Past Surgical Histo: trach, left masectomy, right upper lobectomy, left lower lobe removed Alcohol Use: Occasionally Drug Use: None Adult General Chief Complaint Chief Complaint: FOREIGN BODY HPI HPI is a 79-year-old female who presents with complaint of foreign body sensation in her throat after she was eating an apple 5 days ago. She states that she still feels like something is stuck. She states that the sensation is there every time she swallows. She states that she is able swallow food and fluids without difficulty. She denies any chest pain or shortness of breath.[] Review of Systems Review of Systems Constitutional: Denies fever or chills [] HENT: Positive congestion and foreign-body sensation in throat[] Respiratory: Denies cough or shortness of breath [] Cardiovascular: No additional information not addressed in HPI [] GI: Denies abdominal pain, nausea, vomiting or diarrhea [] Neurologic: Denies headache, focal weakness or sensory changes [] Current Medications Current Medications Current Medications Medications (Trade) Dose Ordered Sig/Lanie Start Time Stop Time Status Last Admin Dose Admin Multi-Ingredient Mouthwash/Gargle (Gi Cocktail) 20 ml 1X ONCE 08/15/19 07:30 08/15/19 07:31 08/15/19 07:05 20 ML Allergies Allergies Allergies Coded Allergies Type Severity Reaction Last Updated Verified lisinopril Adverse Reaction Intermediate Cough 12/05/16 Yes Physical Exam Physical Exam Constitutional: Well developed, well nourished, no acute distress, non-toxic appearance. [] HENT: Normocephalic, atraumatic, bilateral external ears normal, posterior oropharynx is erythematous with posterior oropharyngeal cobblestoning. [] Neck: Normal range of motion, no tenderness, supple, with mild cervical adenopathy. [] Cardiovascular: Regular rate and rhythm[] Lungs & Thorax: Bilateral breath sounds clear to auscultation [] Skin: Warm, dry, no erythema, no rash. [] Current Patient Data Vital Signs Vital Signs Date Time Temp Pulse Resp B/P (MAP) Pulse Ox O2 Delivery O2 Flow Rate FiO2 08/15/19 06:02 98.5 78 18 153/74 (100) 93 98.5 EKG EKG [] Radiology/Procedures Radiology/Procedures [] Course & Med Decision Making Course & Med Decision Making Pertinent Labs and Imaging studies reviewed. (See chart for details) [] Dragon Disclaimer Dragon Disclaimer This electronic medical record was generated, in whole or in part, using a voice recognition dictation system. Departure Departure Impression: Primary Impression: Globus sensation Disposition: HOME, SELF-CARE Condition: STABLE Referrals: TOY DAWSON MD (PCP) Patient Instructions: Globus Syndrome YONIS QUINONES Jr. DO Aug 15, 2019 06:39
[2019-08-15] MEDS ORDERED: LIDO:MAALOX 1:1 20 ML SINGLE DOSE. SWSW ONE (07:30)
--- NOTE | 2019-08-15 07:36 | RAD ---
NECK SOFT TISSUE History: Evaluate for foreign body. Technique: 2 views neck soft tissues. Comparison: None. Findings: No radiopaque foreign body. Advanced multilevel cervical spondylosis. Prevertebral soft tissues unremarkable. Vascular calcifications. No pneumothorax. Impression: 1. No radiopaque foreign body. Electronically signed by: Ian Sweet DO (08/15/2019 7:34 AM) [facility]
== END 2019-08-15 07:17 | disposition home or self-care (01) ==
LOC: ER 05:40
DX: R44.8 Other symptoms and signs involving general sensations and perceptions (principal); I10 Essential (primary) hypertension; Z95.0 Presence of cardiac pacemaker; Z88.8 Allergy status to other drugs, medicaments and biological substances
CPT/HCPCS: 70360; 87070; 87880; 99285-25

== ENCOUNTER → 2019-11-16 | Outpatient (CLI) | payer MEDICARE, BC ==
--- NOTE | 2019-11-16 13:41 | RAD ---
EXAM: 1. CT neck soft tissues without contrast. 2. CT chest without contrast. HISTORY: Lung cancer status post treatment. TECHNIQUE: CT of the neck soft tissues and chest was performed without intravenous contrast. One or more of the following individualized dose reduction techniques were utilized for this examination: 1. Automated exposure control. 2. Adjustment of the mA and/or kV according to patient size. 3. Use of iterative reconstruction technique. COMPARISON: 05/18/2019. FINDINGS: Images of the upper abdomen reveal right renal cortical scarring. Bone windows reveal no suspicious lesions. There are changes of bilateral cataract surgery. There are no clear laryngeal or pharyngeal lesions. The submandibular, parotid and thyroid glands are unremarkable. There are no pathologically enlarged lymph nodes. A left-sided pacemaker has its leads in the right atrium and right ventricle. The heart is mildly enlarged. There are atherosclerotic calcifications of the coronary arteries. There are changes of left mastectomy. A 9 mm left axillary lymph node is unchanged. A lower right paratracheal lymph node has increased in size and measures 13 x 8 mm in comparison with 9 x 7 mm. Another more inferiorly measures 18 x 10 mm as compared with 15 x 9 mm. A spiculated nodule in the left upper lobe measures 1.4 x 1.3 cm as compared with 1.2 x 1.2 cm. Another spiculated mass in the right upper lobe measures 4.2 x 2.9 cm as compared with 4.2 x 2.4 cm. Multiple small satellite nodules about this mass have increased. Another nodule in the left infrahilar region measures 1.4 x 1.4 cm and has increased in density and slightly in size. Another just superior to the right hemidiaphragm measures 1.6 cm and is stable. A 4 mm nodule in the left midlung has increased. There are changes of right lower lobectomy. There is a trace right pleural effusion. There is no pericardial effusion. IMPRESSION: 1. A mass in the right upper lobe and multiple satellite nodules have increased. A few other nodules bilaterally have also increased as above. 2. Small mediastinal lymph nodes have also increased slightly increased. Electronically signed by: Glenn Lawrence MD (11/16/2019 1:38 PM) [facility]
== END | disposition home or self-care (01) ==
LOC: CT 10:47
PROVIDERS: ATTEND Radiology Radiation Oncology
DX: Z08 Encounter for follow-up examination after completed treatment for malignant neoplasm (principal); R91.8 Other nonspecific abnormal finding of lung field; I25.10 Atherosclerotic heart disease of native coronary artery without angina pectoris; I51.7 Cardiomegaly; Z90.12 Acquired absence of left breast and nipple; Z95.0 Presence of cardiac pacemaker
CPT/HCPCS: 70490; 71250

== ENCOUNTER → 2019-11-17 | Outpatient (CLI) | payer MEDICARE, BC ==
--- NOTE | 2019-11-18 09:58 | RAD ---
EXAM: PET/CT SKULL BASE TO MID THIGH. HISTORY: Staging lung cancer COMPARISON: 11/16/2019. TECHNIQUE: CT was performed from the skull base through the mid thighs for the purposes of attenuation correction. 13.6 mCi F-18 fluorodeoxyglucose (FDG) was administered intravenously. After an uptake period, positron emission tomography was performed from the skull base through the mid thighs. The PET and CT data were fused and interpreted in combination a dedicated workstation. Blood glucose level was 112 mg/dL at the time of FDG administration. FINDINGS: A multilobulated mass in the right upper lobe demonstrates maximum SUV 9.7 and measures approximately 4.3 x 4.5 cm. There are multiple small satellite nodules. A left upper lobe nodule measures 12 mm with maximum SUV 6.7. Another inferior to the left hilum measures 13 mm with maximum SUV 6.3. Another just superior to the right hemidiaphragm measures 13 mm with maximum SUV 4.5. There are no clearly hypermetabolic mediastinal or hilar lymph nodes. There is no hypermetabolism suggestive of metastatic disease elsewhere. Additional CT findings include a left 2-lead pacemaker. There are diffuse coronary atherosclerotic calcifications. The heart is moderately enlarged. There are changes of left mastectomy. Small gallstones are noted. Infrarenal abdominal aortic ectasia measures 2.7 cm. There is no aneurysmal dilatation. The uterus is surgically absent. IMPRESSION: 1. A hypermetabolic right upper lobe mass measures 4.5 cm is consistent with bronchogenic carcinoma. 2. Multiple additional bilateral lung nodules measure up to 13 mm and are also hypermetabolic. These are consistent with metastases or 2nd primary lesions.
== END | disposition home or self-care (01) ==
LOC: PETSC 11:49
PROVIDERS: ATTEND Radiology Radiation Oncology
DX: C34.90 Malignant neoplasm of unspecified part of unspecified bronchus or lung (principal); I77.811 Abdominal aortic ectasia; R91.8 Other nonspecific abnormal finding of lung field; I25.10 Atherosclerotic heart disease of native coronary artery without angina pectoris; I51.7 Cardiomegaly; K80.20 Calculus of gallbladder without cholecystitis without obstruction; Z90.12 Acquired absence of left breast and nipple; Z90.710 Acquired absence of both cervix and uterus; Z95.0 Presence of cardiac pacemaker
CPT/HCPCS: 78815; A9552

== ENCOUNTER 2020-01-05 06:49 | Outpatient (CLI) | payer MEDICARE, BC ==
[~2020-01-05] VITALS: Ht 170.2 cm; Wt 94.3 kg
[2020-01-05] VITALS (7 sets, daily range): BP systolic 114–158; BP diastolic 53–91
[2020-01-05 07:33] LABS: BASO # 0.1 x10^3/uL (0.0-0.2); BASO % 1 % (0-3); EOS # 0.2 x10^3/uL (0.0-0.7); EOS % 3 % (0-3); HEMATOCRIT 42.3 % (36.0-47.0); HEMOGLOBIN 13.8 g/dL (12.0-15.5); LYMPH # 1.5 x10^3/uL (1.0-4.8); LYMPH % 20 % (24-48); MEAN CORPUSCULAR HEMOGLOBIN 30 pg (25-35); MEAN CORPUSCULAR HGB CONC 33 g/dL (31-37); MEAN CORPUSCULAR VOLUME 93 fL (79-100); MONO # 0.6 x10^3/uL (0.0-1.1); MONO % 8 % (0-9); NEUT % 68 % (31-73); PLATELET COUNT 257 x10^3/uL (140-400); RED BLOOD COUNT 4.57 x10^6/uL (3.50-5.40); WHITE BLOOD COUNT 7.3 x10^3/uL (4.0-11.0)
[2020-01-05 07:41] LABS: PROTHROMBIN TIME PATIENT 13.8 SEC (11.7-14.0)
[2020-01-05] MEDS ORDERED: fentaNYL PF VIAL 100 MCG/2 ML VIAL ONE (08:17)
[2020-01-05] MEDS ORDERED: MIDAZOLAM HCL/PF 2 MG/2 ML VIAL. ONE (08:17)
[2020-01-05 08:24] LABS: CALCIUM 9.2 mg/dL (8.5-10.1); GFR 53.5; POTASSIUM 4.4 mmol/L (3.5-5.1)
[2020-01-05] MEDS ORDERED: LIDOCAINE 1%/EPI 1:100,000 20 ML VIAL. ONE (08:30)
[2020-01-05] MEDS ORDERED: LIDOCAINE 1%/EPI 1:100,000 20 ML VIAL. INJ ONE (08:45)
[2020-01-05] MEDS ORDERED: fentaNYL PF VIAL 100 MCG/2 ML VIAL IV ONE (08:45)
[2020-01-05] MEDS ORDERED: MIDAZOLAM HCL/PF 2 MG/2 ML VIAL. IV ONE (08:45)
[2020-01-05] MEDS ORDERED: HEPARIN PF 500 UNIT/5 ML DISP.SYRIN. IVP ONE ×2 (08:53→09:15)
--- NOTE | 2020-01-05 10:45 | RAD ---
Procedure: Ultrasound and fluoroscopically guided placement of right internal jugular power port.. 01/05/2020 8:41 AM Clinical Indication: LUNG CA Sedation: Conscious sedation was administered for 30 minutes. The patient was monitored by a qualified independent observer throughout the time of sedation. Please refer to the medical record for exact doses of medications utilized to achieve moderate sedation. Fluoroscopy time: 1.3 minutes Dose area product: 2 Gycm2 Consent: The procedure was explained in its entirety to the patient or the patients designated sales support representative by a member of the treatment team, including a discussion of the risks, benefits and commonly accepted alternatives to the procedure, as well as the expected consequences of no therapy whatsoever. Discussion of the risks included, but was not limited to, those that are most frequent and those that are rare but possibly severe or life-threatening, as well as the possibility of unforeseen complications. Technique and Findings: All elements of maximal sterile barrier technique including the use of a cap, mask, sterile gown, sterile gloves, large sterile sheet, appropriate hand hygiene, and 2% chlorhexidine for cutaneous antisepsis (or acceptable alternative antiseptic per current guidelines) were followed for this procedure. Following informed consent, and a timeout procedure, the patient was prepped and draped in the usual sterile fashion. Ultrasound interrogation of the right neck revealed patency and compressibility of the right internal jugular vein. A 21-gauge micropuncture was then used to gain access to this vein under ultrasound guidance. A hard copy ultrasound image was recorded. The needle was exchanged over a wire for a sheath. A 1 inch incision was made several centimeters inferior to the venotomy site. A catheter was tunneled from this site dermatotomy site in the neck. Catheter was advanced through peel-away sheath such that its tip was in the proximal right atrium with the patient supine. The catheter was trimmed to length and connected to the port reservoir. The port was found to flush and aspirate normally. The wound was closed in layers using 4-0 Vicryl suture. Sterile dressings were applied. Impression: Successful ultrasound and fluoroscopically guided placement of a right internal jugular PowerPort
--- NOTE | 2020-01-05 11:19 | NUR ---
Discharge Note: MARGARITO SELF Discharge instructions and discharge home medications reviewed with Patient and a copy given. All questions have been answered and understanding verbalized. The following instructions and handouts were given: moderate sedation and port instructions, card for wallet completed and given to patient. Discontinued lines and drains: Peripheral IV intact. Patient discharged to Home or Self Care withFamily Membervia Wheelchair
== END 2020-01-05 11:15 | disposition home or self-care (01) ==
LOC: INTRAD 06:49
PROVIDERS: ATTEND Internal Medicine Hematology & Oncology
DX: Z45.2 Encounter for adjustment and management of vascular access device (principal); C34.90 Malignant neoplasm of unspecified part of unspecified bronchus or lung; Z79.01 Long term (current) use of anticoagulants; Z79.82 Long term (current) use of aspirin
CPT/HCPCS: 36415; 36561; 76937; 77001; 80048; 85025; 85610; 85730; 99152; 99153; C1751; C1892; J0696; J1642; J2250; J3010; J3490

== ENCOUNTER → 2020-01-24 | Outpatient (CLI) | payer MEDICARE, BC ==
[2020-01-05 10:35] VITALS: BP 114/73
[~2020-01-24] MED LIST changes: +GADOTERATE 5 MMOL/10ML VIAL. IVP ONE
--- NOTE | 2020-01-24 14:20 | NUR ---
Pt here for a MRI with a pacemaker. Pacemaker rep here to adjust settings. Pt was monitored throughout, VSS. MERON RN
--- NOTE | 2020-01-24 15:10 | RAD ---
BRAIN WO/W CONTRAST History:History of lung cancer. Evaluation for metastasis. Technique: Multiplanar, multi sequential pre and postcontrast MR imaging was performed of the brain. Comparison: None Findings: No acute infarct. No intracranial hemorrhage. No mass effect. No hydrocephalus. No pathologic enhancement. Tiny chronic bilateral cerebellar lacunar infarcts. Mild brain parenchymal volume loss, within normal range for age. Mild foci of T2 such FLAIR hyperintensities within the hemispheric white matter, most often due to chronic microvascular ischemia. Imaged orbits are unremarkable. Bilateral maxillary sinus mucous retention cysts or polyps. Impression: 1. No acute intracranial abnormality. No evidence of intracranial metastasis. 2. Chronic tiny cerebellar lacunar infarct. Electronically signed by: Ian Sweet DO (01/24/2020 2:57 PM) [id number]
== END | disposition home or self-care (01) ==
LOC: MRI 12:19
PROVIDERS: ATTEND Internal Medicine Hematology & Oncology
DX: C50.212 Malignant neoplasm of upper-inner quadrant of left female breast (principal); C34.31 Malignant neoplasm of lower lobe, right bronchus or lung; C34.11 Malignant neoplasm of upper lobe, right bronchus or lung; I63.81 Other cerebral infarction due to occlusion or stenosis of small artery; I67.82 Cerebral ischemia; J34.1 Cyst and mucocele of nose and nasal sinus
CPT/HCPCS: 70553; A9575

== ENCOUNTER → 2020-02-02 | Outpatient (CLI) | payer MEDICARE, BC ==
[2020-01-05 10:35] VITALS: BP 114/73
[~2020-02-02] MED LIST changes: -GADOTERATE 5 MMOL/10ML VIAL. IVP ONE
--- NOTE | 2020-02-02 16:04 | RAD ---
EXAMINATION: PET W CT SKULL TO MIDTHIGH HISTORY: Restaging of left breast cancer and lung cancer. COMPARISON/CORRELATION: 11/17/2019 PET/CT exam, 11/16/2019 CT neck and chest without contrast FINDINGS: Net dose 13.12 mCi F-18 FDG was administered intravenously for purposes of PET/CT exam. Blood glucose level at the time of radiotracer administration was 104 mg/dL. Imaging was performed from the skull base to the proximal thighs. Hepatic reference uptake is SUV max of 2.6 . Uptake of radio tracer involving the visualized head and neck is unremarkable. Incidental note is made of focal intense uptake involving the proximal left humeral shaft with SUV max of 7. This corresponds to soft tissue density within the marrow on axial CT images. Left-sided pacemaker and associated leads are present. There is an infusion port catheter tip terminates within the superior cavoatrial junction. Diffuse coronary arterial calcifications present. Left mastectomy noted. Right posterolateral upper thoracic pulmonary mass which abuts the pleura is again seen. It has an SUV max of 9.3. It measures 4.6 cm x 2 cm without significant change. Margins again seen. Lobulated contour again noted. Medial right basilar nodule measuring 1.6 cm diameter is present without significant change. SUV max of 5.9 is present. Left upper lung field 1.3 cm diameter nodule has remained stable. SUV max of 4.4 noted. Nodule of the lateral aspect of the left upper lung measuring 0.5 cm diameter is stable. It is too small for characterization by PET. At the posterior aspect of the left upper and mid thoracic level of lateral to the descending thoracic aorta, there is a 1.3 cm diameter nodules is slightly decreased in size in the interval. SUV max of 4.8 is present. No new pulmonary nodules are identified. No abnormal uptake involving the lymph nodes. Uptake of radiotracer within the abdomen and pelvis is overall unremarkable. Note is made of a small focus of intense uptake involving the left acetabulum with SUV max of 8. This corresponds with a lytic finding on CT images measuring 1.7 cm diameter. Cholelithiasis is noted. Distal abdominal aortic aneurysm measuring 2.6 cm diameter is present. IMPRESSION: Interval development of proximal left femoral and left acetabular foci of intense compatible with bony metastases. Corresponding abnormal findings on the CT images noted at these sites are also evident in the interval. Pulmonary masses and nodules are mostly unchanged or slightly decreased compared to the previous exam with its intense uptake again seen compatible with active neoplastic or metastatic involvement. PQRS Compliance Statement: One or more of the following individualized dose reduction techniques were utilized for this examination: 1. Automated exposure control 2. Adjustment of the mA and/or kV according to patient size 3. Use of iterative reconstruction technique Electronically signed by: Sidney Fernandez MD (02/02/2020 4:01 PM) [id number]
== END | disposition home or self-care (01) ==
LOC: PETSC 09:33
PROVIDERS: ATTEND Internal Medicine Hematology & Oncology
DX: C50.212 Malignant neoplasm of upper-inner quadrant of left female breast (principal); C34.12 Malignant neoplasm of upper lobe, left bronchus or lung; C34.31 Malignant neoplasm of lower lobe, right bronchus or lung; C34.11 Malignant neoplasm of upper lobe, right bronchus or lung; I25.10 Atherosclerotic heart disease of native coronary artery without angina pectoris; Q89.8 Other specified congenital malformations; K80.20 Calculus of gallbladder without cholecystitis without obstruction; I71.4 Abdominal aortic aneurysm, without rupture; R91.8 Other nonspecific abnormal finding of lung field
CPT/HCPCS: 78815; A9552

== ENCOUNTER → 2020-02-05 | Outpatient (CLI) | payer MEDICARE, BC ==
[2020-01-05 10:35] VITALS: BP 114/73
[2020-02-05 12:05] LABS: BASO # 0.1 x10^3/uL (0.0-0.2); BASO % 1 % (0-3); EOS # 0.2 x10^3/uL (0.0-0.7); EOS % 3 % (0-3); HEMATOCRIT 38.6 % (36.0-47.0); HEMOGLOBIN 12.6 g/dL (12.0-15.5); LYMPH # 1.6 x10^3/uL (1.0-4.8); LYMPH % 22 % (24-48); MEAN CORPUSCULAR HEMOGLOBIN 30 pg (25-35); MEAN CORPUSCULAR HGB CONC 33 g/dL (31-37); MEAN CORPUSCULAR VOLUME 92 fL (79-100); MONO # 0.7 x10^3/uL (0.0-1.1); MONO % 9 % (0-9); NEUT % 66 % (31-73); PLATELET COUNT 271 x10^3/uL (140-400); RED BLOOD COUNT 4.18 x10^6/uL (3.50-5.40); RED CELL DISTRIBUTION WIDTH 14.5 % (11.5-14.5); WHITE BLOOD COUNT 7.6 x10^3/uL (4.0-11.0)
[2020-02-05 12:19] LABS: ALBUMIN 3.3 g/dL (3.4-5.0); CALCIUM 8.4 mg/dL (8.5-10.1); DIRECT BILIRUBIN 0.1 mg/dL (0.0-0.2); GFR 53.5; POTASSIUM 4.2 mmol/L (3.5-5.1); TOTAL BILIRUBIN 0.3 mg/dL (0.2-1.0)
[2020-02-05 12:32] LABS: TOTAL PROTEIN 6.8 g/dL (6.4-8.2)
== END | disposition home or self-care (01) ==
LOC: LAB 11:41
PROVIDERS: ATTEND Internal Medicine Hematology & Oncology
DX: C34.11 Malignant neoplasm of upper lobe, right bronchus or lung (principal); C34.12 Malignant neoplasm of upper lobe, left bronchus or lung; C34.31 Malignant neoplasm of lower lobe, right bronchus or lung; Z79.899 Other long term (current) drug therapy
CPT/HCPCS: 36415; 80048; 80076; 83615; 84443; 85025

== ENCOUNTER → 2020-03-26 | Outpatient (CLI) | payer MEDICARE, BC ==
[2020-03-21 09:00] VITALS: BP 158/74
[~2020-03-26] MED LIST changes: +FLEC50TA PO; +HYDR-2761 PO
--- NOTE | 2020-03-26 13:05 | RAD ---
CHEST PA LATERAL History: Reason: INCREASED COUGH AND SHORTNESS OF BREATH/ADENOCARCINOMA OF UPPER RT LOBE / Spl. Instructions: / History: Comparison: 11/16/2019 CT neck and chest without contrast. Findings: Frontal and lateral views of the chest were obtained. Dual-lead left-sided pacemaker is present. Right internal jugular infusion port catheter is identified with the tip terminating at the superior cavoatrial junction. Right apical pleural based mass again is seen corresponding with previous CT examination. Small nodular density previously seen in the left upper lung field is not currently donated but may not be well identified on x-ray exam. Minimal right basilar discoid atelectasis or scarring is again seen. Heart size and pulmonary vasculature are normal. No pneumothorax. Pulmonary hyperinflation is present. There is no pleural effusion. IMPRESSION: No significant change in the right apical mass upon correlation with previous CT exam. COPD. No new infiltrate.. Electronically signed by: Sidney Fernandez MD (03/26/2020 1:02 PM) [id number]
== END | disposition home or self-care (01) ==
LOC: RAD 12:03
PROVIDERS: ATTEND Internal Medicine Hematology & Oncology
DX: C34.12 Malignant neoplasm of upper lobe, left bronchus or lung (principal); C34.11 Malignant neoplasm of upper lobe, right bronchus or lung; J44.9 Chronic obstructive pulmonary disease, unspecified; I27.20 Pulmonary hypertension, unspecified
CPT/HCPCS: 71046

== ENCOUNTER → 2020-03-29 | Outpatient (CLI) | payer MEDICARE, BC ==
[2020-03-21 09:00] VITALS: BP 158/74
[~2020-03-29] MED LIST changes: -HYDR-2761 PO
--- NOTE | 2020-03-29 11:19 | RESP ---
DATE OF SERVICE: 03/29/2020 PROCEDURE: PFTs. FINDINGS: The patient's FVC was 2.13, which is 75% predicted; FEV1 of 1.1, which is 52% predicted. The FEV1/FVC ratio was reduced. There was no response to bronchodilators. Lung volume showed a total lung capacity of 188% predicted and residual volume 336% predicted. Diffusion capacity was 77% predicted. IMPRESSION: 1. Moderate obstructive airway disease. 2. No response to bronchodilators. 3. Lung volumes consistent with air trapping and hyperinflation. 4. Mildly reduced diffusion capacity. DARRELL SANDS MD DR: DEZ/merna JOB#: [id number] / [id number] IRIS Singer MD
== END | disposition home or self-care (01) ==
LOC: PF 08:59
PROVIDERS: ATTEND Internal Medicine Hematology & Oncology
DX: J98.8 Other specified respiratory disorders (principal); R94.2 Abnormal results of pulmonary function studies
CPT/HCPCS: 94060; 94726; 94729

== ENCOUNTER → 2020-04-04 | Outpatient (CLI) | payer MEDICARE, BC ==
[2020-03-21 09:00] VITALS: BP 158/74
[2020-04-04 10:18] LABS: BASO % 0 % (0-3); EOS % 0 % (0-3); HEMATOCRIT 39.4 % (36.0-47.0); HEMOGLOBIN 12.8 g/dL (12.0-15.5); LYMPH # 0.8 x10^3/uL (1.0-4.8); LYMPH % 7 % (24-48); MEAN CORPUSCULAR HEMOGLOBIN 30 pg (25-35); MEAN CORPUSCULAR HGB CONC 33 g/dL (31-37); MEAN CORPUSCULAR VOLUME 91 fL (79-100); MONO # 0.4 x10^3/uL (0.0-1.1); MONO % 3 % (0-9); NEUT # 10.8 x10^3/uL (1.8-7.7); NEUT % 90 % (31-73); PLATELET COUNT 312 x10^3/uL (140-400); RED BLOOD COUNT 4.33 x10^6/uL (3.50-5.40); RED CELL DISTRIBUTION WIDTH 15.1 % (11.5-14.5)
[2020-04-04 10:43] LABS: CALCIUM 7.7 mg/dL (8.5-10.1); CREATININE 1.2 mg/dL (0.6-1.0); GFR 43.2; POTASSIUM 4.5 mmol/L (3.5-5.1)
[2020-04-04 10:49] LABS: ALBUMIN 3.1 g/dL (3.4-5.0); DIRECT BILIRUBIN 0.1 mg/dL (0.0-0.2); TOTAL BILIRUBIN 0.2 mg/dL (0.2-1.0); TOTAL PROTEIN 6.4 g/dL (6.4-8.2)
[2020-04-04 12:31] LABS: % LYMPHS 5 % (24-48); % MONOS 4 % (0-10); % SEGS 91 % (35-66); PLT ESTIMATE ADEQUATE (ADEQUATE)
== END | disposition home or self-care (01) ==
LOC: ONCLAB 08:18
PROVIDERS: ATTEND Physician Assistant
DX: C34.12 Malignant neoplasm of upper lobe, left bronchus or lung (principal)
CPT/HCPCS: 36415; 80048; 80076; 83615; 85007; 85025

== ENCOUNTER → 2020-04-11 | Outpatient (CLI) | payer MEDICARE, BC ==
[2020-03-21 09:00] VITALS: BP 158/74
[~2020-04-11] MED LIST changes: -ASPI-612 PO; +ASPI-886 PO; +HYDR-2761 PO
[2020-04-11 09:15] LABS: BASO % 0 % (0-3); EOS # 0.1 x10^3/uL (0.0-0.7); EOS % 1 % (0-3); HEMATOCRIT 40.7 % (36.0-47.0); HEMOGLOBIN 13.4 g/dL (12.0-15.5); LYMPH # 1.2 x10^3/uL (1.0-4.8); LYMPH % 7 % (24-48); MEAN CORPUSCULAR HEMOGLOBIN 30 pg (25-35); MEAN CORPUSCULAR HGB CONC 33 g/dL (31-37); MEAN CORPUSCULAR VOLUME 91 fL (79-100); MONO # 0.8 x10^3/uL (0.0-1.1); MONO % 5 % (0-9); NEUT # 13.5 x10^3/uL (1.8-7.7); NEUT % 87 % (31-73); PLATELET COUNT 243 x10^3/uL (140-400); RED BLOOD COUNT 4.47 x10^6/uL (3.50-5.40); RED CELL DISTRIBUTION WIDTH 15.2 % (11.5-14.5); WHITE BLOOD COUNT 15.6 x10^3/uL (4.0-11.0)
[2020-04-11 09:32] LABS: CALCIUM 8.6 mg/dL (8.5-10.1); CREATININE 1.5 mg/dL (0.6-1.0); GFR 33.4; POTASSIUM 4.2 mmol/L (3.5-5.1)
[2020-04-11 09:45] LABS: FREE T4 0.98 ng/dL (0.76-1.46); THYROID STIM HORMONE (TSH) 3.889 uIU/mL (0.358-3.74)
[2020-04-11 10:40] LABS: BILIRUBIN,URINE SMALL (NEG); CLARITY,URINE CLEAR; COLOR,URINE YELLOW; NITRITE,URINE NEGATIVE (NEG); PROTEIN,URINE NEGATIVE (NEG-TRACE); UROBILINOGEN,URINE 0.2 mg/dL (0.2 mg/dL)
[2020-04-11 10:47] LABS: HYALINE CASTS, URINE FEW /HPF; SQUAMOUS EPITHELIAL CELL,UR MOD /LPF
[2020-04-11 10:48] LABS: BACTERIA,URINE 0 /HPF (0-FEW); RBC,URINE OCC /HPF (0-2); WBC,URINE RARE /HPF (0-4)
== END ==
LOC: ONCLAB 09:03
PROVIDERS: ATTEND Internal Medicine Hematology & Oncology
DX: C34.12 Malignant neoplasm of upper lobe, left bronchus or lung (principal); C34.11 Malignant neoplasm of upper lobe, right bronchus or lung; Z91.89 Other specified personal risk factors, not elsewhere classified; Z79.899 Other long term (current) drug therapy
CPT/HCPCS: 36415; 80048; 81001; 84439; 84443; 85025

== ENCOUNTER → 2020-04-17 | Outpatient (CLI) | payer MEDICARE, BC ==
[2020-03-21 09:00] VITALS: BP 158/74
[~2020-04-17] MED LIST changes: +ASPI-612 PO; -ASPI-886 PO
--- NOTE | 2020-04-17 13:42 | RAD ---
Examination: Ultrasound kidneys HISTORY: History of decreased renal function COMPARISON: None available FINDINGS: The right kidney measures 11.2 x 4.9 x 5.6 cm. The left kidney measures 10.8 x 4.8 x 5.6 cm. No evidence of hydronephrosis. Urinary bladder is mildly distended. IMPRESSION: Unremarkable visualized exam. Electronically signed by: Imtiaz Verduzco MD (04/17/2020 1:39 PM) [id number]
== END | disposition home or self-care (01) ==
LOC: US 12:50
PROVIDERS: ATTEND Internal Medicine Hematology & Oncology
DX: N32.89 Other specified disorders of bladder (principal); R94.4 Abnormal results of kidney function studies
CPT/HCPCS: 76770

== ENCOUNTER → 2020-04-17 | Outpatient (CLI) | payer MEDICARE, BC ==
[2020-03-21 09:00] VITALS: BP 158/74
[~2020-04-17] MED LIST changes: -ASPI-612 PO; +ASPI-886 PO
[2020-04-17 10:47] LABS: BASO % 0 % (0-3); EOS # 0.1 x10^3/uL (0.0-0.7); EOS % 1 % (0-3); HEMATOCRIT 39.2 % (36.0-47.0); HEMOGLOBIN 12.8 g/dL (12.0-15.5); LYMPH # 0.7 x10^3/uL (1.0-4.8); LYMPH % 8 % (24-48); MEAN CORPUSCULAR HEMOGLOBIN 30 pg (25-35); MEAN CORPUSCULAR HGB CONC 33 g/dL (31-37); MEAN CORPUSCULAR VOLUME 92 fL (79-100); MONO # 0.3 x10^3/uL (0.0-1.1); MONO % 3 % (0-9); NEUT # 8.3 x10^3/uL (1.8-7.7); NEUT % 88 % (31-73); PLATELET COUNT 193 x10^3/uL (140-400); RED BLOOD COUNT 4.28 x10^6/uL (3.50-5.40); RED CELL DISTRIBUTION WIDTH 15.6 % (11.5-14.5); WHITE BLOOD COUNT 9.4 x10^3/uL (4.0-11.0)
[2020-04-17 10:53] LABS: CALCIUM 8.8 mg/dL (8.5-10.1); CREATININE 1.3 mg/dL (0.6-1.0); GFR 39.4; POTASSIUM 4.4 mmol/L (3.5-5.1)
[2020-04-17 13:13] LABS: % BANDS 4 % (0-9); % EOS 1 % (0-5); % LYMPHS 10 % (24-48); % MONOS 1 % (0-10); % SEGS 84 % (35-66); PLT ESTIMATE ADEQUATE (ADEQUATE)
== END ==
LOC: ONCLAB 10:31
PROVIDERS: ATTEND Physician Assistant
DX: C34.90 Malignant neoplasm of unspecified part of unspecified bronchus or lung (principal)
CPT/HCPCS: 36415; 80048; 85007; 85025

== ENCOUNTER → 2020-04-25 | Outpatient (CLI) | payer MEDICARE, BC ==
[2020-03-21 09:00] VITALS: BP 158/74
[~2020-04-25] MED LIST changes: +ASPI-612 PO; -ASPI-886 PO; -HYDR-2761 PO
[2020-04-25 08:42] LABS: BASO # 0.1 x10^3/uL (0.0-0.2); BASO % 1 % (0-3); EOS # 0.2 x10^3/uL (0.0-0.7); EOS % 3 % (0-3); HEMATOCRIT 37.9 % (36.0-47.0); HEMOGLOBIN 12.8 g/dL (12.0-15.5); LYMPH # 1.4 x10^3/uL (1.0-4.8); LYMPH % 15 % (24-48); MEAN CORPUSCULAR HEMOGLOBIN 31 pg (25-35); MEAN CORPUSCULAR HGB CONC 34 g/dL (31-37); MEAN CORPUSCULAR VOLUME 92 fL (79-100); MONO # 0.5 x10^3/uL (0.0-1.1); MONO % 6 % (0-9); NEUT # 7.1 x10^3/uL (1.8-7.7); NEUT % 76 % (31-73); PLATELET COUNT 218 x10^3/uL (140-400); RED CELL DISTRIBUTION WIDTH 16.2 % (11.5-14.5); WHITE BLOOD COUNT 9.2 x10^3/uL (4.0-11.0)
[2020-04-25 08:54] LABS: CALCIUM 8.6 mg/dL (8.5-10.1); CREATININE 1.6 mg/dL (0.6-1.0); POTASSIUM 4.1 mmol/L (3.5-5.1)
== END ==
LOC: ONCLAB 08:04
PROVIDERS: ATTEND Physician Assistant
DX: C34.12 Malignant neoplasm of upper lobe, left bronchus or lung (principal); C79.51 Secondary malignant neoplasm of bone; C50.212 Malignant neoplasm of upper-inner quadrant of left female breast; Z79.899 Other long term (current) drug therapy
CPT/HCPCS: 36415; 80048; 83615; 84443; 85025

== ENCOUNTER 2020-05-02 11:15 | Emergency (ER) | payer MEDICARE, BC ==
[~2020-05-02] VITALS: Ht 170.2 cm; Wt 93.0 kg
[~2020-05-02 11:15] MED LIST changes: -ASPI-612 PO; +ASPI-886 PO
[2020-05-02 11:28] VITALS: BP 119/56
[2020-05-02 12:10] LABS: BASO # 0.1 x10^3/uL (0.0-0.2); BASO % 1 % (0-3); EOS # 0.1 x10^3/uL (0.0-0.7); EOS % 1 % (0-3); HEMATOCRIT 37.5 % (36.0-47.0); HEMOGLOBIN 12.4 g/dL (12.0-15.5); LYMPH # 0.8 x10^3/uL (1.0-4.8); LYMPH % 13 % (24-48); MEAN CORPUSCULAR HEMOGLOBIN 31 pg (25-35); MEAN CORPUSCULAR HGB CONC 33 g/dL (31-37); MEAN CORPUSCULAR VOLUME 92 fL (79-100); MONO # 0.3 x10^3/uL (0.0-1.1); MONO % 5 % (0-9); NEUT # 5.2 x10^3/uL (1.8-7.7); NEUT % 80 % (31-73); PLATELET COUNT 219 x10^3/uL (140-400); RED BLOOD COUNT 4.06 x10^6/uL (3.50-5.40); RED CELL DISTRIBUTION WIDTH 16.4 % (11.5-14.5); WHITE BLOOD COUNT 6.4 x10^3/uL (4.0-11.0)
--- NOTE | 2020-05-02 12:17 | RAD ---
STUDY: US VENOUS LOWER EXTREMITY RIGHT INDICATION: Right leg pain. History of deep venous thrombosis. TECHNIQUE: Color-flow and pulsed wave duplex ultrasound with compression of venous structures of the right lower extremity. COMPARISON: None recently. FINDINGS: Duplex ultrasound with compression of the deep venous structures of the right lower extremity from the common femoral vein through the popliteal vein is negative for DVT. The posterior tibial and peroneal veins are segmentally visualized and patent where seen. Normal venous waveforms and augmentation are noted throughout. IMPRESSION: No deep venous thrombosis seen throughout the right lower extremity. Electronically signed by: JODI QUESADA MD (05/02/2020 12:14 PM) [id number]
[2020-05-02 12:18] LABS: ANION GAP 9 (6-14); BLOOD UREA NITROGEN 26 mg/dL (7-20); BUN/CREATININE RATIO 17 (6-20); CALCIUM 7.9 mg/dL (8.5-10.1); CARBON DIOXIDE 25 mmol/L (21-32); CHLORIDE 107 mmol/L (98-107); CREATININE 1.5 mg/dL (0.6-1.0); GFR 33.4; GLUCOSE 192 mg/dL (70-99); POTASSIUM 4.3 mmol/L (3.5-5.1); SODIUM 141 mmol/L (136-145)
[2020-05-02 12:21] LABS: PROTHROMBIN TIME PATIENT 15.4 SEC (11.7-14.0)
[2020-05-02 12:23] LABS: ALBUMIN/GLOBULIN RATIO 0.9 (1.0-1.7); ALK PHOS 62 U/L (46-116); ALT (SGPT) 21 U/L (14-59); MAGNESIUM 2.3 mg/dL (1.8-2.4); TOTAL BILIRUBIN 0.3 mg/dL (0.2-1.0); TOTAL PROTEIN 6.2 g/dL (6.4-8.2)
[2020-05-02 12:26] LABS: AST (SGOT) < 5 U/L (15-37)
[2020-05-02] MEDS ORDERED: HYDR-2761 PO (13:01)
--- NOTE | 2020-05-02 13:02 | PHYS DOC ---
Past Medical History Past Medical History: Cancer, DVT, Hypertension Additional Past Medical Histor: breast and lung cancer, PE, CRF (ESTELLE GUERIN APRN) Past Surgical History: Hysterectomy, Pacemaker, Other Additional Past Surgical Histo: trach, left masectomy, right upper lobectomy, left lower lobe removed (ESTELLE GUERIN APRN) Smoking Status: Former Smoker Alcohol Use: Occasionally Drug Use: None (ESTELLE GUERIN APRN) General Adult EDM: Chief Complaint: LOWER EXT PAIN HPI: HPI: Patient is a 80 year old female who presents to the emergency department with complaints of pain in her posterior right leg from her heel all the way up her thigh for the last 3 days. 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 Patient states she was sent by the cancer center to make sure she did not have a blood clot. She denies any recent injury, numbness, tingling, weakness, or swelling of the affected extremity. She denies any back pain. She states that the pain in her leg increases with weightbearing. She rates the pain a 10 out of 10 on the pain scale, she states that the pain only improves with rest, she denies any radiation of the pain. (ESTELLE GUERIN APRN) Review of Systems: Review of Systems: Constitutional: Denies fever or chills. [] HENT: Denies nasal congestion or sore throat. [] Respiratory: Denies cough or shortness of breath. [] Cardiovascular: Denies chest pain or edema. [] GI: Denies abdominal pain, nausea, vomiting, or diarrhea. [] : Denies dysuria, anauria, or hematuria. [] Musculoskeletal: Denies back pain; see HPI Integument: Denies rash. [] Neurologic: Denies headache, focal weakness or sensory changes. [] Psychiatric: Denies depression or anxiety. [] (ESTELLE GUERIN APRN) Heart Score: Risk Factors: Risk Factors: DM, Current or recent (<one month) smoker, HTN, HLP, family history of CAD, obesity. Risk Scores: Score 0 - 3: 2.5% MACE over next 6 weeks - Discharge Home Score 4 - 6: 20.3% MACE over next 6 weeks - Admit for Clinical Observation Score 7 - 10: 72.7% MACE over next 6 weeks - Early Invasive Strategies (ESTELLE GUERIN APRN) Allergies: Allergies: Allergies Coded Allergies Type Severity Reaction Last Updated Verified No Known Drug Allergies 03/21/20 No (ESTELLE GUERIN APRN) Physical Exam: PE: Constitutional: Well developed, well nourished, no acute distress, non-toxic appearance. [] HENT: Normocephalic, atraumatic, bilateral external ears normal, oropharynx moist, no oral exudates, nose normal. [] Eyes: PERRLA, EOMI, conjunctiva normal, no discharge. [] Neck: Normal range of motion, no tenderness, supple, no stridor. [] Cardiovascular:Heart rate regular rhythm, no murmur [] Lungs & Thorax: Bilateral breath sounds clear to auscultation [] Abdomen: Bowel sounds normal, soft, no tenderness, no masses, no pulsatile masses. [] Skin: Warm, dry, no erythema, no rash. [] Back: No tenderness, no CVA tenderness. [] Extremities: No tenderness, no cyanosis, no clubbing, ROM intact, no edema. [] Neurologic: Alert and oriented X 3, normal motor function, normal sensory function, no focal deficits noted. [] Psychologic: Affect normal, judgement normal, mood normal. [] (ESTELLE GUERIN APRN) Current Patient Data: Labs: Laboratory Tests Test 05/02/20 12:02 White Blood Count 6.4 x10^3/uL (4.0-11.0) Red Blood Count 4.06 x10^6/uL (3.50-5.40) Hemoglobin 12.4 g/dL (12.0-15.5) Hematocrit 37.5 % (36.0-47.0) Mean Corpuscular Volume 92 fL (79-100) Mean Corpuscular Hemoglobin 31 pg (25-35) Mean Corpuscular Hemoglobin Concent 33 g/dL (31-37) Red Cell Distribution Width 16.4 % (11.5-14.5) H Platelet Count 219 x10^3/uL (140-400) Neutrophils (%) (Auto) 80 % (31-73) H Lymphocytes (%) (Auto) 13 % (24-48) L Monocytes (%) (Auto) 5 % (0-9) Eosinophils (%) (Auto) 1 % (0-3) Basophils (%) (Auto) 1 % (0-3) Neutrophils # (Auto) 5.2 x10^3/uL (1.8-7.7) Lymphocytes # (Auto) 0.8 x10^3/uL (1.0-4.8) L Monocytes # (Auto) 0.3 x10^3/uL (0.0-1.1) Eosinophils # (Auto) 0.1 x10^3/uL (0.0-0.7) Basophils # (Auto) 0.1 x10^3/uL (0.0-0.2) Prothrombin Time 15.4 SEC (11.7-14.0) H Prothrombin Time INR 1.3 (0.8-1.1) H Sodium Level 141 mmol/L (136-145) Potassium Level 4.3 mmol/L (3.5-5.1) Chloride Level 107 mmol/L (98-107) Carbon Dioxide Level 25 mmol/L (21-32) Anion Gap 9 (6-14) Blood Urea Nitrogen 26 mg/dL (7-20) H Creatinine 1.5 mg/dL (0.6-1.0) H Estimated GFR (Cockcroft-Gault) 33.4 BUN/Creatinine Ratio 17 (6-20) Glucose Level 192 mg/dL (70-99) H Calcium Level 7.9 mg/dL (8.5-10.1) L Magnesium Level 2.3 mg/dL (1.8-2.4) Total Bilirubin 0.3 mg/dL (0.2-1.0) Aspartate Amino Transferase (AST) < 5 U/L (15-37) L Alanine Aminotransferase (ALT) 21 U/L (14-59) Alkaline Phosphatase 62 U/L (46-116) Total Protein 6.2 g/dL (6.4-8.2) L Albumin 3.0 g/dL (3.4-5.0) L Albumin/Globulin Ratio 0.9 (1.0-1.7) L Laboratory Tests 05/02/20 12:02 Laboratory Tests 05/02/20 12:02 (ESTELLE GUERIN APRN) EKG: EKG: [] (ESTELLE GUERIN APRN) Radiology/Procedures: Radiology/Procedures: PROCEDURE: VENOUS LOWER EXTREMITY RIGHT STUDY: US VENOUS LOWER EXTREMITY RIGHT INDICATION: Right leg pain. History of deep venous thrombosis. TECHNIQUE: Color-flow and pulsed wave duplex ultrasound with compression of venous structures of the right lower extremity. COMPARISON: None recently. FINDINGS: Duplex ultrasound with compression of the deep venous structures of the right lower extremity from the common femoral vein through the popliteal vein is negative for DVT. The posterior tibial and peroneal veins are segmentally visualized and patent where seen. Normal venous waveforms and augmentation are noted throughout. IMPRESSION: No deep venous thrombosis seen throughout the right lower extremity. [] (ESTELLE GUERIN APRN) Course & Med Decision Making: Course & Med Decision Making Pertinent Labs and Imaging studies reviewed. (See chart for details) 80-year-old female presents emergency department with complaints of pain in her right leg from her heel all the way up the back of her leg, she denied any trauma. Ultrasound of the right leg revealed no DVT no acute findings. CBC is unremarkable; PT/INR 15.4 and 1.3; CMP reveals a BUN of 26 and creatinine of 1.5, this is similar to previous BUN/creatinine drawn a few months ago, patient's glucose is 192, calcium 7.9 corrected CA 8.7 Encourage patient to follow-up with her primary care doctor for further evaluation, will prescribe hydrocodone as needed pain she can take half of a tablet to 1 tablet every 6 hours as needed. Activity as tolerated. Patient verbalized an understanding of home care, medications, follow-up, and return to ED instructions and was in agreement with the plan of care. [] (ESTELLE GUERIN APRN) Course & Med Decision Making Staff Physician Addendum: I was working in the ER during the course of this patient's visit. I was a vailable for consultation as needed, but I was not directly involved in the care of this patient. (ANTONIA LANGE MD) Estelaon Disclaimer: Dragon Disclaimer: This electronic medical record was generated, in whole or in part, using a voice recognition dictation system. (ESTELLE GUERIN APRN) Departure Departure Impression: Primary Impression: Right leg pain Disposition: HOME, SELF-CARE Condition: STABLE Referrals: TOY DAWSON MD (PCP) Patient Instructions: Leg Cramps Additional Instructions: Fill prescription(s) and use as directed. Recommend elevation, and rest of affected extremity. Activity as tolerated, follow-up with your primary care doctor next week, return to the ER if your symptoms worsen. Scripts Hydrocodone Bit/Acetaminophen (HYDROCODONE-APAP 5-325 ) 1 Tab Tablet 0.5-1 TAB PO PRN Q6HRS PRN for PAIN for 3 Days, #10 TAB 0 Refills Prov: ESTELLE GUERIN APRN 05/02/20 Justicifation of Admission Dx: Justifications for Admission: Justification of Admission Dx: N/A (ESTELLE GUERIN APRN) ESTELLE GUERIN APRN May 02, 2020 13:02 ANTONIA LANGE MD May 02, 2020 14:47
== END 2020-05-02 13:35 | disposition home or self-care (01) ==
LOC: ER 11:15
DX: M79.604 Pain in right leg (principal); I10 Essential (primary) hypertension; Z86.711 Personal history of pulmonary embolism; Z86.718 Personal history of other venous thrombosis and embolism; Z90.710 Acquired absence of both cervix and uterus; Z87.891 Personal history of nicotine dependence; Z95.0 Presence of cardiac pacemaker
CPT/HCPCS: 36415; 80053; 83735; 85025; 85610; 93971; 99284

== ENCOUNTER → 2020-05-06 | Outpatient (CLI) | payer MEDICARE, BC ==
[2020-05-02 11:28] VITALS: BP 119/56
[~2020-05-06] MED LIST changes: +ASPI-612 PO; -ASPI-886 PO; +HYDR-2761 PO
--- NOTE | 2020-05-06 13:08 | RAD ---
EXAM: PET/CT SKULL BASE TO MID THIGH. HISTORY: Lung cancer restaging COMPARISON: 02/02/2020. TECHNIQUE: CT was performed from the skull base through the mid thighs for the purposes of attenuation correction. 13.6 mCi F-18 fluorodeoxyglucose (FDG) was administered intravenously. After an uptake period, positron emission tomography was performed from the skull base through the mid thighs. The PET and CT data were fused and interpreted in combination a dedicated workstation. Blood glucose level was 77 mg/dL at the time of FDG administration. FINDINGS: A scarlike mass in the right upper lobe measures 4.2 x 2.8 cm, max SUV 5.9. It is decreased from 4.6 x 3.8 cm previously. A scarlike nodule in the left upper lobe measures 11 mm as compared with 15 mm previously, maximum SUV 1.2. A nodule medially in the left lower lobe measures 12 mm as compared with 15 mm, max SUV 3.3. Another just superior to the right hemidiaphragm appears stable as 16 mm, not well seen by PET given motion at the hemidiaphragms. A previously noted hypermetabolic metastasis in the left superior acetabulum is no longer detectable by PET and is now sclerotic consistent with treatment response. A few other tiny sclerotic foci in the pelvis are below the resolution of PET. Additional CT findings include left mastectomy changes. A right-sided port catheter has its tip in the superior cavoatrial junction. A left-sided pacemaker has its leads in the right atrium and right ventricle. The heart is mildly enlarged. There are changes of bilateral cataract surgery. There are atherosclerotic calcifications of the coronary arteries. Gallstones are suspected. Mild infrarenal abdominal aortic ectasia measures 2.5 cm. The uterus is surgically absent. IMPRESSION: 1. Multiple lung nodules have decreased in size consistent with a treatment process as detailed above. Previously noted osseous metastases also demonstrate treatment response. 2. Additional CT findings as above.
== END | disposition home or self-care (01) ==
LOC: PETSC 08:59
PROVIDERS: ATTEND Internal Medicine Hematology & Oncology
DX: C34.31 Malignant neoplasm of lower lobe, right bronchus or lung (principal); I77.811 Abdominal aortic ectasia; I51.7 Cardiomegaly; I25.10 Atherosclerotic heart disease of native coronary artery without angina pectoris; Z95.0 Presence of cardiac pacemaker; Z90.710 Acquired absence of both cervix and uterus; Z98.41 Cataract extraction status, right eye; Z98.42 Cataract extraction status, left eye
CPT/HCPCS: 78815; A9552

== ENCOUNTER → 2020-05-21 | Outpatient (CLI) | payer MEDICARE, BC ==
[2020-05-02 11:28] VITALS: BP 119/56
[~2020-05-21] MED LIST changes: -ASPI-612 PO; +ASPI-886 PO
[2020-05-21 09:53] LABS: BASO # 0.1 x10^3/uL (0.0-0.2); BASO % 1 % (0-3); EOS # 0.2 x10^3/uL (0.0-0.7); EOS % 3 % (0-3); HEMATOCRIT 36.2 % (36.0-47.0); LYMPH # 1.3 x10^3/uL (1.0-4.8); LYMPH % 17 % (24-48); MEAN CORPUSCULAR HEMOGLOBIN 30 pg (25-35); MEAN CORPUSCULAR HGB CONC 33 g/dL (31-37); MEAN CORPUSCULAR VOLUME 92 fL (79-100); MONO # 0.6 x10^3/uL (0.0-1.1); MONO % 8 % (0-9); NEUT # 5.7 x10^3/uL (1.8-7.7); NEUT % 72 % (31-73); PLATELET COUNT 256 x10^3/uL (140-400); RED BLOOD COUNT 3.93 x10^6/uL (3.50-5.40); RED CELL DISTRIBUTION WIDTH 16.8 % (11.5-14.5); WHITE BLOOD COUNT 7.9 x10^3/uL (4.0-11.0)
[2020-05-21 10:01] LABS: CALCIUM 8.8 mg/dL (8.5-10.1); CREATININE 1.5 mg/dL (0.6-1.0); GFR 33.4; POTASSIUM 4.1 mmol/L (3.5-5.1)
[2020-05-21 10:07] LABS: ALBUMIN 3.2 g/dL (3.4-5.0); TOTAL BILIRUBIN 0.5 mg/dL (0.2-1.0); TOTAL PROTEIN 6.5 g/dL (6.4-8.2)
== END | disposition home or self-care (01) ==
LOC: ONCLAB 09:34
PROVIDERS: ATTEND Internal Medicine Hematology & Oncology
DX: C50.212 Malignant neoplasm of upper-inner quadrant of left female breast (principal)
CPT/HCPCS: 36415; 80053; 85025

== ENCOUNTER → 2020-05-24 | Outpatient (CLI) | payer MEDICARE, BC ==
[2020-05-02 11:28] VITALS: BP 119/56
--- NOTE | 2020-05-24 13:30 | NUR ---
Pt to MRI for multiple exams, pt has [employer] pacemaker. Rep from company here to adjust settings for MRI. Pt monitored throughout, tolerated without difficulty, VSS. Pacemaker settings restored after end of exam by rep. MERON MORENO
--- NOTE | 2020-05-24 15:25 | RAD ---
MRI Lumbar Spine without contrast History: Low back pain, right hip pain, history of breast and lung cancer Technique: Multiplanar, multi sequential noncontrast MR imaging was performed of the lumbar spine. Comparison: None Findings: There is inferior L1 Schmorl's node with associated mild nonspecific edema. There is hemangioma of the L3 vertebral body on the left. There is also fairly large hemangioma of the inferior right T12 vertebral body. There is mild grade 1 anterior spondylolisthesis at L3-4. There is mild linear fat signal intensity in the posterior central aspect of the thecal sac such as L2-3 through L5 fatty filum terminalis. Conus terminates near L1-2. There is fairly severe L5-S1 degenerative disc disease, to a somewhat lesser degree at L4-5. There is other mild disc desiccation of more superior levels. There are anterior annular tears at L3-4 and L1-2. L1-L2: Spinal canal and neural foramina are adequate. L2-L3: There is mild buckling of the ligamentum flavum and facet degenerative change. Neural foramina are overall adequate. There is very mild narrowing of the far lateral recesses bilaterally. L3-L4: There is xslm-vp-wdskgzpp facet hypertrophic change and buckling of the ligamentum flavum. There is mild to moderate narrowing of the far lateral recesses bilaterally somewhat greater on the right, mild narrowing of the central canal. There is mild narrowing of the left neural foramen inferiorly, minimal bulge of the undersurface exiting left L3 nerve root. Right neural foramen is overall adequate. L4-L5: There is minimal disc osteophyte complex and bulge. There is mild buckling of the ligamentum flavum and facet degenerative change. There is mxku-ur-kevfamzi narrowing of the far lateral recesses bilaterally, also mild narrowing of the central canal. There is moderate to severe narrowing of the right neural foramen with contact exiting right L4 nerve root, narrowing by disc osteophyte complex and facet. There is jirr-xe-jjjzojkd narrowing of the inferior left neural foramen, disc osteophyte complex near the undersurface exiting left L4 nerve root. L5-S1: There is a minimal disc osteophyte complex. There is minimal narrowing of the far left lateral recess. There is mild narrowing of the right neural foramen inferiorly by disc osteophyte complex, near the undersurface exiting right L5 nerve root. There is also mild narrowing greater distally of the left neural foramen, disc osteophyte complex also near the extraforaminal L5 nerve roots bilaterally without significant displacement. Impression: 1. There is neural foramina compromise, more significant narrowing on the right at L4-5 with contact exiting right L4 nerve root, lesser degree of narrowing on the left at L4-5, and other minimal narrowing as stated. 2. There is yutq-gd-wtvtjwzd narrowing of the far lateral recesses bilaterally at L3-4 and L4-5. 3. There is degenerative disc disease greatest at L5-S1. 4. There is nonspecific mild edema associated with inferior L1 Schmorl's node, no other suspicious edematous marrow lesion identified. Electronically signed by: Benito Sullivan MD (05/24/2020 3:22 PM) [id number]
--- NOTE | 2020-05-24 16:55 | RAD ---
EXAM: MRI RIGHT hip DATE: 05/24/2020 2:45 PM CLINICAL INDICATION: Reason: LBP, RIGHT HIP PAIN, HX OF BREAST AND LUNG CANCER COMPARISON: None. TECHNIQUE: Multiplanar, multisequence MRI of the right hip was performed without contrast. 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 No significant marrow edema. Marrow fat is grossly preserved. Symphysis pubis degenerative changes are seen. Articular cartilage is grossly preserved. Within the constraints of this noncontrast examination, no discrete labral tear is seen. Tendinous attachments of the right gluteus medius and minimus are intact. No trochanteric bursal distention. No significant right hip joint effusion. The tendinous attachments of the iliopsoas, direct and indirect heads of the right rectus femoris and hamstrings are intact. Susceptibility artifact is seen within the right inguinal region limiting evaluation. On this limited evaluation of the pelvis, no pelvic mass, lymphadenopathy or ascites. Of note, on the large rmpdw-rv-lofc for resolution localizer images, there is likely also left femoral head osteonecrosis. Changes within the left superior acetabulum. IMPRESSION: 1. 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 2. Left femoral head osteonecrosis is also suspected, only seen on the large luvdv-zp-gclv localizer images. Left acetabular focal changes are also seen, possibly degenerative and can be correlated with radiographs as metastatic disease is not excluded given primary malignancy in this patient. Electronically signed by: Greg Stuart MD (05/24/2020 4:52 PM) MALIK
== END ==
LOC: MRI 13:12
PROVIDERS: ATTEND Physician Assistant
DX: M51.37 Other intervertebral disc degeneration, lumbosacral region (principal); R60.0 Localized edema; M48.061 Spinal stenosis, lumbar region without neurogenic claudication; M25.78 Osteophyte, vertebrae
CPT/HCPCS: 72148; 72195

== ENCOUNTER → 2020-05-28 | Outpatient (CLI) | payer MEDICARE, BC ==
[2020-05-02 11:28] VITALS: BP 119/56
[2020-05-28 13:40] LABS: BASO % 0 % (0-3); EOS % 0 % (0-3); HEMATOCRIT 34.4 % (36.0-47.0); HEMOGLOBIN 11.5 g/dL (12.0-15.5); LYMPH # 0.6 x10^3/uL (1.0-4.8); LYMPH % 7 % (24-48); MEAN CORPUSCULAR HEMOGLOBIN 31 pg (25-35); MEAN CORPUSCULAR HGB CONC 34 g/dL (31-37); MEAN CORPUSCULAR VOLUME 91 fL (79-100); MONO # 0.3 x10^3/uL (0.0-1.1); MONO % 3 % (0-9); NEUT # 8.9 x10^3/uL (1.8-7.7); NEUT % 90 % (31-73); PLATELET COUNT 352 x10^3/uL (140-400); RED BLOOD COUNT 3.77 x10^6/uL (3.50-5.40); RED CELL DISTRIBUTION WIDTH 16.7 % (11.5-14.5); WHITE BLOOD COUNT 9.8 x10^3/uL (4.0-11.0)
[2020-05-28 13:48] LABS: CALCIUM 8.1 mg/dL (8.5-10.1); CREATININE 1.3 mg/dL (0.6-1.0); GFR 39.4
[2020-05-28 13:54] LABS: ALBUMIN/GLOBULIN RATIO 0.8 (1.0-1.7); TOTAL BILIRUBIN 0.4 mg/dL (0.2-1.0); TOTAL PROTEIN 6.8 g/dL (6.4-8.2)
== END | disposition home or self-care (01) ==
LOC: ONCLAB 12:54
PROVIDERS: ATTEND Internal Medicine Hematology & Oncology
DX: C50.212 Malignant neoplasm of upper-inner quadrant of left female breast (principal); C34.11 Malignant neoplasm of upper lobe, right bronchus or lung; C34.31 Malignant neoplasm of lower lobe, right bronchus or lung; C34.12 Malignant neoplasm of upper lobe, left bronchus or lung
CPT/HCPCS: 36415; 80053; 85025

== ENCOUNTER → 2020-05-31 | Outpatient (CLI) | payer MEDICARE, BC ==
[2020-05-02 11:28] VITALS: BP 119/56
--- NOTE | 2020-06-01 04:13 | RAD ---
CT chest without contrast PQRS statement: CT scans at this facility use dose reduction including either automated exposure control, iterative reconstructions, and /or weight based radiation dosing via mA and kV modification when appropriate to reduce radiation dose to as low as reasonably achievable. HISTORY: Shortness of breath. Pneumonia. History of lung cancer. COMPARISON: PET scan April 22, 2020. FINDINGS: Calcified plaque thoracic aorta and coronary arteries. Cardiac pacemaker. Right jugular portacatheter tip atrial caval junction. Heart size upper limits of normal. Subcentimeter mediastinal lymph nodes are present no enlarged adenopathy in the chest. Esophagus and pulmonary vessels are unremarkable. Mild bilateral dependent pleural effusions along the lung bases are new. Left mastectomy again demonstrated. Postoperative change of right lower lobectomy again demonstrated. At the lateral right upper lobe apex there is a irregular triangular mass lesion similar in size to most recent CT study maximum diameter 3 cm but is smaller compared to the prior CT study from October 2019. Mild groundglass nodules extending inferior of this right upper lobe lesion also stable. There is a posterior basal right lung base 10 mm solid mildly irregular nodule abutting the diaphragmatic pleura image 55 which is more solid indistinct relative to prior imaging. Separate right medial basal lung base solid mildly spiculated 13 mm nodule image 46 stable to most recent imaging. Left upper lobectomy. Left upper lung apical 10 mm spiculated nodule coronal image 40, axial image 15 stable. Infrahilar left lower lobe solid spiculated pulmonary nodule image 33 stable. Bones are unremarkable. IMPRESSION: 1. Triangular scarlike spiculated lesion at the right upper lobe apex representing the patient's treated tumor is stable to April 2020. 2. At the posterior basal right lung base abutting the diaphragmatic pleura is a 10 mm solid irregular nodule which has increased in density since prior imaging raising the possibility of a developing malignant nodule as described above. 3. Mild pleural effusions new from prior imaging. 4. Other pulmonary nodules are stable as described above. Electronically signed by: Josafat Burton MD (06/01/2020 4:10 AM) [facility]
== END | disposition home or self-care (01) ==
LOC: CT 12:13
PROVIDERS: ATTEND Internal Medicine Hematology & Oncology
DX: R91.8 Other nonspecific abnormal finding of lung field (principal); J90 Pleural effusion, not elsewhere classified; J18.9 Pneumonia, unspecified organism; Z85.118 Personal history of other malignant neoplasm of bronchus and lung
CPT/HCPCS: 71250

== ENCOUNTER → 2020-06-04 | Outpatient (CLI) | payer MEDICARE, BC ==
[2020-06-04 10:36] LABS: BASO % 0 % (0-3); EOS % 0 % (0-3); HEMOGLOBIN 12.4 g/dL (12.0-15.5); LYMPH # 0.7 x10^3/uL (1.0-4.8); LYMPH % 4 % (24-48); MEAN CORPUSCULAR HEMOGLOBIN 30 pg (25-35); MEAN CORPUSCULAR HGB CONC 33 g/dL (31-37); MEAN CORPUSCULAR VOLUME 91 fL (79-100); MONO # 0.7 x10^3/uL (0.0-1.1); MONO % 5 % (0-9); NEUT # 13.4 x10^3/uL (1.8-7.7); NEUT % 91 % (31-73); PLATELET COUNT 371 x10^3/uL (140-400); RED BLOOD COUNT 4.17 x10^6/uL (3.50-5.40); RED CELL DISTRIBUTION WIDTH 16.9 % (11.5-14.5); WHITE BLOOD COUNT 14.8 x10^3/uL (4.0-11.0)
[2020-06-04 10:46] LABS: CALCIUM 8.6 mg/dL (8.5-10.1); CREATININE 1.3 mg/dL (0.6-1.0); GFR 39.4; POTASSIUM 4.1 mmol/L (3.5-5.1)
[2020-06-04 10:57] LABS: ALBUMIN 2.9 g/dL (3.4-5.0); ALBUMIN/GLOBULIN RATIO 0.9 (1.0-1.7); TOTAL BILIRUBIN 0.3 mg/dL (0.2-1.0); TOTAL PROTEIN 6.1 g/dL (6.4-8.2)
[2020-06-04 11:12] LABS: % BANDS 1 % (0-9); % LYMPHS 4 % (24-48); % MONOS 4 % (0-10); % SEGS 91 % (35-66)
[2020-06-04 11:13] LABS: ANISOCYTOSIS SLIGHT; PLT ESTIMATE ADEQUATE (ADEQUATE)
== END | disposition home or self-care (01) ==
LOC: ONCLAB 10:21
PROVIDERS: ATTEND Internal Medicine Hematology & Oncology
DX: C34.12 Malignant neoplasm of upper lobe, left bronchus or lung (principal); C79.51 Secondary malignant neoplasm of bone
CPT/HCPCS: 36415; 80053; 85007; 85025

== ENCOUNTER → 2020-06-10 | Outpatient (CLI) | payer MEDICARE, BC ==
[~2020-06-10] MED LIST changes: +GADOTERATE 7.5 MMOL/15ML VIAL. IVP ONE
--- NOTE | 2020-06-10 13:58 | RAD ---
EXAM: Brain MRI with and without contrast. HISTORY: Lung cancer. TECHNIQUE: Multiplanar, multisequence magnetic resonance imaging of the brain was performed prior to and following the administration of intravenous contrast. COMPARISON: 01/24/2020 FINDINGS: There is no restricted diffusion to suggest acute or subacute infarction. There is no susceptibility effect to suggest hemorrhage. There is no mass effect or midline shift. There is no hydrocephalus. There is nonspecific signal change within the cerebral white matter, primarily in a left posterior periventricular distribution. This is most commonly due to chronic small vessel disease. There is a tiny focus of enhancement within the left frontal lobe cortex near the vertex. The absence of associated T2/FLAIR hyperintensity favors artifact related to a penetrating vessel. No convincing suspicious enhancing lesion is seen. No suspicious osseous lesion is seen. IMPRESSION: 1. No acute intracranial finding. 2. Scattered focal areas of signal change within the cerebral white matter, most commonly due to chronic small vessel disease in a patient of this age. This is similar compared to the prior exam. 3. Tiny focus of enhancement within the posterior left frontal lobe cortex, likely artifactual or due to a vessel given the absence of corresponding signal abnormality on additional sequences. No convincing intracranial metastasis is seen. Electronically signed by: Sharmin Polanco MD (06/10/2020 1:55 PM) [facility]
--- NOTE | 2020-06-10 15:07 | NUR ---
Patient came in outpatient for MRI of Brain with and without contrast. [employer] adjusted pacemaker for MRI. Patients vitals stable, no issues. [employer] set MRI back to previous settings. Patient denied any issues or concerns.
== END | disposition home or self-care (01) ==
LOC: MRI 12:40
PROVIDERS: ATTEND Internal Medicine Hematology & Oncology
DX: C34.90 Malignant neoplasm of unspecified part of unspecified bronchus or lung (principal); I73.9 Peripheral vascular disease, unspecified
CPT/HCPCS: 70553; A9575

== ENCOUNTER → 2020-06-12 | Outpatient (CLI) | payer MEDICARE, BC ==
[~2020-06-12] MED LIST changes: -GADOTERATE 7.5 MMOL/15ML VIAL. IVP ONE
[2020-06-12 09:59] LABS: BASO % 0 % (0-3); EOS % 0 % (0-3); HEMATOCRIT 37.8 % (36.0-47.0); HEMOGLOBIN 12.4 g/dL (12.0-15.5); LYMPH # 0.6 x10^3/uL (1.0-4.8); LYMPH % 5 % (24-48); MEAN CORPUSCULAR HEMOGLOBIN 31 pg (25-35); MEAN CORPUSCULAR HGB CONC 33 g/dL (31-37); MEAN CORPUSCULAR VOLUME 94 fL (79-100); MONO # 0.4 x10^3/uL (0.0-1.1); MONO % 3 % (0-9); NEUT % 91 % (31-73); PLATELET COUNT 248 x10^3/uL (140-400); RED BLOOD COUNT 4.03 x10^6/uL (3.50-5.40); RED CELL DISTRIBUTION WIDTH 18.7 % (11.5-14.5)
[2020-06-12 10:22] LABS: CALCIUM 7.8 mg/dL (8.5-10.1); CREATININE 1.4 mg/dL (0.6-1.0); GFR 36.2; POTASSIUM 4.4 mmol/L (3.5-5.1)
[2020-06-12 10:29] LABS: ALBUMIN 2.7 g/dL (3.4-5.0); ALBUMIN/GLOBULIN RATIO 0.9 (1.0-1.7); TOTAL BILIRUBIN 0.4 mg/dL (0.2-1.0); TOTAL PROTEIN 5.7 g/dL (6.4-8.2)
[2020-06-12 11:13] LABS: % BANDS 2 % (0-9); % LYMPHS 16 % (24-48); % MONOS 4 % (0-10); % SEGS 78 % (35-66); PLT ESTIMATE ADEQUATE (ADEQUATE)
== END | disposition home or self-care (01) ==
LOC: ONCLAB 09:47
PROVIDERS: ATTEND Internal Medicine Hematology & Oncology
DX: C34.11 Malignant neoplasm of upper lobe, right bronchus or lung (principal); C18.7 Malignant neoplasm of sigmoid colon
CPT/HCPCS: 36415; 80053; 85007; 85025

== ENCOUNTER → 2020-06-19 | Outpatient (CLI) | payer MEDICARE, BC ==
[2020-06-19 10:56] LABS: BASO # 0.1 x10^3/uL (0.0-0.2); BASO % 1 % (0-3); EOS # 0.3 x10^3/uL (0.0-0.7); EOS % 4 % (0-3); HEMATOCRIT 36.7 % (36.0-47.0); HEMOGLOBIN 12.1 g/dL (12.0-15.5); LYMPH # 1.4 x10^3/uL (1.0-4.8); LYMPH % 19 % (24-48); MEAN CORPUSCULAR HEMOGLOBIN 31 pg (25-35); MEAN CORPUSCULAR HGB CONC 33 g/dL (31-37); MEAN CORPUSCULAR VOLUME 94 fL (79-100); MONO # 0.5 x10^3/uL (0.0-1.1); MONO % 7 % (0-9); NEUT # 5.2 x10^3/uL (1.8-7.7); NEUT % 70 % (31-73); PLATELET COUNT 146 x10^3/uL (140-400); RED BLOOD COUNT 3.91 x10^6/uL (3.50-5.40); RED CELL DISTRIBUTION WIDTH 19.8 % (11.5-14.5); WHITE BLOOD COUNT 7.4 x10^3/uL (4.0-11.0)
[2020-06-19 11:08] LABS: CALCIUM 7.9 mg/dL (8.5-10.1); CREATININE 1.3 mg/dL (0.6-1.0); GFR 39.4; POTASSIUM 4.1 mmol/L (3.5-5.1)
[2020-06-19 11:14] LABS: ALBUMIN 2.8 g/dL (3.4-5.0); ALBUMIN/GLOBULIN RATIO 0.9 (1.0-1.7); TOTAL BILIRUBIN 0.5 mg/dL (0.2-1.0); TOTAL PROTEIN 5.9 g/dL (6.4-8.2)
== END | disposition home or self-care (01) ==
LOC: SPEC 10:43
PROVIDERS: ATTEND Physician Assistant
DX: C34.11 Malignant neoplasm of upper lobe, right bronchus or lung (principal)
CPT/HCPCS: 36415; 80053; 85025

== ENCOUNTER → 2020-06-26 | Outpatient (CLI) | payer MEDICARE, BC ==
[2020-06-26 09:10] LABS: BASO % 1 % (0-3); CALCIUM 8.3 mg/dL (8.5-10.1); CREATININE 1.1 mg/dL (0.6-1.0); EOS # 0.2 x10^3/uL (0.0-0.7); EOS % 4 % (0-3); GFR 47.8; HEMATOCRIT 34.3 % (36.0-47.0); HEMOGLOBIN 11.2 g/dL (12.0-15.5); LYMPH # 1.3 x10^3/uL (1.0-4.8); LYMPH % 25 % (24-48); MEAN CORPUSCULAR HEMOGLOBIN 31 pg (25-35); MEAN CORPUSCULAR HGB CONC 33 g/dL (31-37); MEAN CORPUSCULAR VOLUME 95 fL (79-100); MONO # 0.5 x10^3/uL (0.0-1.1); MONO % 9 % (0-9); NEUT # 3.3 x10^3/uL (1.8-7.7); NEUT % 62 % (31-73); PLATELET COUNT 204 x10^3/uL (140-400); RED BLOOD COUNT 3.63 x10^6/uL (3.50-5.40); WHITE BLOOD COUNT 5.3 x10^3/uL (4.0-11.0)
[2020-06-26 09:16] LABS: ALBUMIN 2.7 g/dL (3.4-5.0); ALBUMIN/GLOBULIN RATIO 0.9 (1.0-1.7); TOTAL BILIRUBIN 0.4 mg/dL (0.2-1.0); TOTAL PROTEIN 5.7 g/dL (6.4-8.2)
== END | disposition home or self-care (01) ==
LOC: ONCLAB 08:39
PROVIDERS: ATTEND Internal Medicine Hematology & Oncology
DX: C50.212 Malignant neoplasm of upper-inner quadrant of left female breast (principal); C34.11 Malignant neoplasm of upper lobe, right bronchus or lung
CPT/HCPCS: 36415; 80053; 85025

== ENCOUNTER → 2020-07-10 | Outpatient (CLI) | payer MEDICARE, BC ==
[2020-07-10 08:35] LABS: BASO # 0.1 x10^3/uL (0.0-0.2); BASO % 1 % (0-3); EOS # 0.1 x10^3/uL (0.0-0.7); EOS % 1 % (0-3); HEMATOCRIT 33.9 % (36.0-47.0); HEMOGLOBIN 11.2 g/dL (12.0-15.5); LYMPH # 1.4 x10^3/uL (1.0-4.8); LYMPH % 15 % (24-48); MEAN CORPUSCULAR HEMOGLOBIN 31 pg (25-35); MEAN CORPUSCULAR HGB CONC 33 g/dL (31-37); MEAN CORPUSCULAR VOLUME 94 fL (79-100); MONO # 0.7 x10^3/uL (0.0-1.1); MONO % 8 % (0-9); NEUT # 7.1 x10^3/uL (1.8-7.7); NEUT % 75 % (31-73); PLATELET COUNT 305 x10^3/uL (140-400); RED BLOOD COUNT 3.61 x10^6/uL (3.50-5.40); RED CELL DISTRIBUTION WIDTH 17.9 % (11.5-14.5); WHITE BLOOD COUNT 9.4 x10^3/uL (4.0-11.0)
[2020-07-10 08:43] LABS: CALCIUM 8.5 mg/dL (8.5-10.1); CREATININE 1.1 mg/dL (0.6-1.0); GFR 47.8; POTASSIUM 3.9 mmol/L (3.5-5.1)
[2020-07-10 08:49] LABS: ALBUMIN 2.8 g/dL (3.4-5.0); ALBUMIN/GLOBULIN RATIO 0.9 (1.0-1.7); TOTAL BILIRUBIN 0.6 mg/dL (0.2-1.0)
== END | disposition home or self-care (01) ==
LOC: ONCLAB 08:18
PROVIDERS: ATTEND Internal Medicine Hematology & Oncology
DX: C34.11 Malignant neoplasm of upper lobe, right bronchus or lung (principal); E03.0 Congenital hypothyroidism with diffuse goiter
CPT/HCPCS: 36415; 80053; 84443; 85025

== ENCOUNTER → 2020-07-24 | Outpatient (CLI) | payer MEDICARE, BC ==
[2020-07-24 08:53] LABS: BASO # 0.1 x10^3/uL (0.0-0.2); BASO % 1 % (0-3); EOS # 0.3 x10^3/uL (0.0-0.7); EOS % 4 % (0-3); HEMATOCRIT 34.8 % (36.0-47.0); HEMOGLOBIN 11.4 g/dL (12.0-15.5); LYMPH # 1.4 x10^3/uL (1.0-4.8); LYMPH % 18 % (24-48); MEAN CORPUSCULAR HEMOGLOBIN 31 pg (25-35); MEAN CORPUSCULAR HGB CONC 33 g/dL (31-37); MEAN CORPUSCULAR VOLUME 95 fL (79-100); MONO # 0.6 x10^3/uL (0.0-1.1); MONO % 7 % (0-9); NEUT # 5.7 x10^3/uL (1.8-7.7); NEUT % 70 % (31-73); PLATELET COUNT 260 x10^3/uL (140-400); RED BLOOD COUNT 3.67 x10^6/uL (3.50-5.40); RED CELL DISTRIBUTION WIDTH 17.1 % (11.5-14.5); WHITE BLOOD COUNT 8.1 x10^3/uL (4.0-11.0)
[2020-07-24 09:02] LABS: CALCIUM 8.5 mg/dL (8.5-10.1); CREATININE 1.4 mg/dL (0.6-1.0); GFR 36.2; POTASSIUM 3.9 mmol/L (3.5-5.1)
[2020-07-24 09:08] LABS: ALBUMIN 2.9 g/dL (3.4-5.0); ALBUMIN/GLOBULIN RATIO 0.9 (1.0-1.7); TOTAL BILIRUBIN 0.5 mg/dL (0.2-1.0)
== END ==
LOC: ONCLAB 08:00
PROVIDERS: ATTEND Internal Medicine Hematology & Oncology
DX: C34.11 Malignant neoplasm of upper lobe, right bronchus or lung (principal)
CPT/HCPCS: 36415; 80053; 85025

== ENCOUNTER → 2020-08-07 | Outpatient (CLI) | payer MEDICARE, BC ==
[~2020-08-07] MED LIST changes: +CALC1CAP7 PO; +ONDA4TAB12 PO; +PANT40TA77 PO; +PRED-220 PO; +PREG50CA91 PO
[2020-08-07 11:35] LABS: BASO # 0.1 x10^3/uL (0.0-0.2); BASO % 1 % (0-3); EOS # 0.2 x10^3/uL (0.0-0.7); EOS % 3 % (0-3); HEMATOCRIT 36.1 % (36.0-47.0); HEMOGLOBIN 11.6 g/dL (12.0-15.5); LYMPH # 1.3 x10^3/uL (1.0-4.8); LYMPH % 17 % (24-48); MEAN CORPUSCULAR HEMOGLOBIN 31 pg (25-35); MEAN CORPUSCULAR HGB CONC 32 g/dL (31-37); MEAN CORPUSCULAR VOLUME 96 fL (79-100); MONO # 0.5 x10^3/uL (0.0-1.1); MONO % 7 % (0-9); NEUT # 5.5 x10^3/uL (1.8-7.7); NEUT % 72 % (31-73); PLATELET COUNT 249 x10^3/uL (140-400); RED BLOOD COUNT 3.75 x10^6/uL (3.50-5.40); WHITE BLOOD COUNT 7.6 x10^3/uL (4.0-11.0)
[2020-08-07 11:50] LABS: CALCIUM 8.4 mg/dL (8.5-10.1); CREATININE 1.2 mg/dL (0.6-1.0); GFR 43.2; POTASSIUM 3.7 mmol/L (3.5-5.1)
[2020-08-07 11:54] LABS: ALBUMIN 3.1 g/dL (3.4-5.0); ALBUMIN/GLOBULIN RATIO 1.1 (1.0-1.7); TOTAL BILIRUBIN 0.5 mg/dL (0.2-1.0)
[2020-08-07 12:18] LABS: FREE T4 1.03 ng/dL (0.76-1.46); THYROID STIM HORMONE (TSH) 1.385 uIU/mL (0.358-3.74)
== END ==
LOC: ONCLAB 11:09
PROVIDERS: ATTEND Internal Medicine Hematology & Oncology
DX: C34.11 Malignant neoplasm of upper lobe, right bronchus or lung (principal); Z79.899 Other long term (current) drug therapy
CPT/HCPCS: 36415; 80053; 84439; 84443; 85025

== ENCOUNTER → 2020-08-08 | Outpatient (CLI) | payer MEDICARE, BC ==
[~2020-08-08] MED LIST changes: -CALC1CAP7 PO; -ONDA4TAB12 PO; -PANT40TA77 PO; -PRED-220 PO; -PREG50CA91 PO
--- NOTE | 2020-08-08 14:36 | CARD ---
MR#: [id number] Date of Study: 08/08/2020 Ordering Physician: URBIN SHORE, Referring Physician: RUBIN SHORE, Tech: Sandee Machado SHANIQUA APPROVED REPORT EXAM: Two-dimensional and M-mode echocardiogram with Doppler and color Doppler. Other Information Quality : Good Technically limited study due to body habitus. INDICATION Dyspnea 2D DIMENSIONS RVDd2.8 (2.9-3.5cm)Left Atrium(2D)4.6 (1.6-4.0cm) IVSd1.1 (0.7-1.1cm)Aortic Root(2D)2.4 (2.0-3.7cm) LVDd4.8 (3.9-5.9cm)LVOT Diameter2.1 (1.8-2.4cm) PWd1.1 (0.7-1.1cm)LVDs3.1 (2.5-4.0cm) FS (%) 20.0 %SV67.8 ml LVEF(%)45.0 (>50%) Aortic Valve AoV Peak Silvio.114.4cm/sAoV VTI21.9cm AO Peak GR.5.2mmHgLVOT Peak Silvio.100.7cm/s AO Mean GR.3mmHgAVA (VMAX)3.15cm2 ALEISHA (VTI)3.50cm2 Mitral Valve MV E Lyhxkvat512.0cm/sMV DECEL [id number] MV A Zegrcxhc27.6cm/sE/A Ratio3.6 Tricuspid Valve TR P. Qcvkoshh305ea/sRAP [id number] TR Peak Gr.43zlCoJWLC06anKk LEFT VENTRICLE The left ventricle is normal size. There is normal left ventricular wall thickness. Left ventricle sy stolic function is mildly impaired. The Ejection Fraction is 40-45%. Septal motion consistent with pr ior CABG and conduction defect. There is mild global hypokinesis. Tissue Doppler imaging reveals mode rate left ventricular diastolic dysfunction. RIGHT VENTRICLE The right ventricle is normal size. The right ventricular systolic function is normal. ATRIA The left atrium is mildly dilated. The right atrium size is normal. The interatrial septum is intact with no evidence for an atrial septal defect or patent foramen ovale as noted on 2-D or Doppler imagi ng. AORTIC VALVE The aortic valve is calcified but opens well. Doppler and Color Flow revealed no significant aortic r egurgitation. There is no significant aortic valvular stenosis. MITRAL VALVE The mitral valve is calcified but opens well. Mitral annular calcification is mild. There is no evide nce of mitral valve prolapse. There is no mitral valve stenosis. Doppler and Color-flow revealed mild mitral regurgitation. TRICUSPID VALVE The tricuspid valve is normal in structure and function. Doppler and Color Flow revealed physiologica l tricuspid regurgitation. There is mild pulmonary hypertension. The PA pressure was estimated at 34 mmHg. There is no tricuspid valve stenosis. PULMONIC VALVE The pulmonic valve is not well visualized. Doppler and Color Flow revealed trace pulmonic valvular re gurgitation. There is no pulmonic valvular stenosis. GREAT VESSELS The aortic root is normal in size. The ascending aorta is not well seen. The IVC is dilated and colla pses <50% with inspiration. PERICARDIAL EFFUSION There is moderate left pleural effusion. There is no evidence of significant pericardial effusion. Critical Notification Critical Value: No <Conclusion> Left ventricle systolic function is mildly impaired. The Ejection Fraction is 40-45%. Septal motion consistent with prior CABG and conduction defect. There is mild global hypokinesis. Tissue Doppler imaging reveals moderate left ventricular diastolic dysfunction. Doppler and Color Flow revealed physiological tricuspid regurgitation. There is mild pulmonary hypert ension. The PA pressure was estimated at 34 mmHg. There is moderate left pleural effusion. Signed by : Torsten Garnica, Electronically Approved : 08/08/2020 14:35:24
== END ==
LOC: ECHO 12:38
PROVIDERS: ATTEND Internal Medicine Pulmonary Disease
DX: I08.3 Combined rheumatic disorders of mitral, aortic and tricuspid valves (principal); I27.20 Pulmonary hypertension, unspecified; I25.810 Atherosclerosis of coronary artery bypass graft(s) without angina pectoris; J90 Pleural effusion, not elsewhere classified
CPT/HCPCS: 93306

== ENCOUNTER 2020-10-13 11:25 | Emergency (ER) | payer MEDICARE, BC ==
[~2020-10-13] VITALS: Ht 170.2 cm; Wt 86.0 kg
[~2020-10-13 11:25] MED LIST changes: +CALC1CAP7 PO; +ONDA4TAB12 PO; +PANT40TA77 PO; +PRED-220 PO; +PREG50CA91 PO
[2020-10-13 11:38] VITALS: BP 120/64
[2020-10-13] MEDS ORDERED: HYDROcodone/APAP 5/325MG 1 TAB TABLET PO ONE (11:45)
--- NOTE | 2020-10-13 11:45 | PHYS DOC ---
Past Medical History Past Medical History: Cancer, DVT, Hypertension Additional Past Medical Histor: breast and lung cancer, PE, CRF Past Surgical History: Hysterectomy, Pacemaker, Other Additional Past Surgical Histo: trach, left masectomy, right upper lobectomy, left lower lobe removed Smoking Status: Former Smoker Alcohol Use: None Drug Use: None General Adult EDM: Chief Complaint: MECHANICAL FALL HPI: HPI: Patient is a 80 year old female who presents with was outside going up the stairs of which have a rubber padding on them and she tripped and then fell backward hitting her head on the concrete. Patient has a 1 inch laceration to the back of her head. She rates her headache at a 5 out of 10. She also states that her right wrist is hurting and her left hip. EMS was able to stand her back up and she was able to put weight on the hip. Patient does have full range of motion of the right wrist. Patient has no focal bony spinal tenderness. Full range of motion of her neck. Patient has a history of being on Xarelto. She is history of DVT, breast cancer, lung cancer, hypertension, left lower lobe removed, right lobectomy, left mastectomy, CRF, PE. Review of Systems: Review of Systems: Constitutional: Denies fever or chills. [] Eyes: Denies change in visual acuity. [] HENT: Denies nasal congestion or sore throat. [] Respiratory: Denies cough or shortness of breath. [] Cardiovascular: Denies chest pain or edema. [] GI: Denies abdominal pain, nausea, vomiting, bloody stools or diarrhea. [] : Denies dysuria. [] Musculoskeletal: Denies back pain. + Right wrist and right hip joint pain. [] Integument: Denies rash. + Back of the head laceration 1 inch [] Neurologic: + headache, denies focal weakness or sensory changes. [] Endocrine: Denies polyuria or polydipsia. [] Lymphatic: Denies swollen glands. [] Psychiatric: Denies depression or anxiety. [] Heart Score: Risk Factors: Risk Factors: DM, Current or recent (<one month) smoker, HTN, HLP, family history of CAD, obesity. Risk Scores: Score 0 - 3: 2.5% MACE over next 6 weeks - Discharge Home Score 4 - 6: 20.3% MACE over next 6 weeks - Admit for Clinical Observation Score 7 - 10: 72.7% MACE over next 6 weeks - Early Invasive Strategies Allergies: Allergies: Allergies Coded Allergies Type Severity Reaction Last Updated Verified No Known Drug Allergies 03/21/20 No Physical Exam: PE: Constitutional: Well developed, well nourished, no acute distress, non-toxic appearance. [] HENT: Normocephalic, atraumatic, bilateral external ears normal, oropharynx moist, no oral exudates, nose normal. [] Eyes: PERRLA, EOMI, conjunctiva normal, no discharge. [] Neck: Normal range of motion, no tenderness, supple, no stridor. [] Cardiovascular:Heart rate regular rhythm, no murmur [] Lungs & Thorax: Bilateral breath sounds clear to auscultation [] Abdomen: Bowel sounds normal, soft, no tenderness, no masses, no pulsatile masses. [] Skin: Warm, dry, no erythema, no rash. Horizontal 1 inch laceration to the back of scalp. [] Back: No tenderness, no CVA tenderness. [] Extremities: No tenderness, no cyanosis, no clubbing, ROM intact, no edema. [] Neurologic: Alert and oriented X 3, normal motor function, normal sensory function, no focal deficits noted. [] Psychologic: Affect normal, judgement normal, mood normal. [] EKG: EKG: [] Radiology/Procedures: Radiology/Procedures: [] Impression: [facility] [address] [place] [address] IMAGING REPORT Signed PATIENT: MARGARITO SELF JACCOUNT: [id number] : 1940 LOCATION: ER AGE: 80 SEX: F EXAM STATUS: REG ER ORD. PHYSICIAN: ITALO SAMPSON APRN REASON: FALL, HEAD LACERATION PROCEDURE: CT HEAD AND CERVICAL SPINE WO CT head without contrast: Reason for examination: Fell with head laceration. Axial images were obtained through the brain. No contrast was administered. Ventricular systems are symmetric and not abnormally dilated concerning patient's advanced age and generalized cerebral atrophy. No midline shift is seen. There is no evidence of intracranial hemorrhage, infarct, mass or edema. No abnormalities of seen at the orbits. The paranasal sinuses and mastoid air cells appear to be clear. No acute abnormality seen in the skull. Note is made of some focal skull thickening in the left frontal bone. IMPRESSION: Cerebral atrophy but no acute intracranial abnormality evident. CT cervical spine without contrast: Helical images were obtained through the cervical spine from the skull base through the thoracic apices with no contrast administered. Reconstruction was performed in sagittal and coronal planes. The C1 ring appears to be intact. The odontoid process is intact and normally centered between the lateral masses of C1. The vertebral bodies of the cervical spine are normally aligned anteriorly and posteriorly. No acute fracture or subl uxation is seen. Posterior elements are intact. There are hypertrophic changes off the anterior endplates from C3 through C7. There is degenerative disc disease at the C5-6 and C6-7 disc levels. Prevertebral soft tissues are normal. There does not appear to be significant spinal stenosis. IMPRESSION: Degenerative spondylosis with disc disease at the C5/6 and C6-7 levels. No acute abnormality evident in the cervical spine. Exposure: One or more of the following individualized dose reduction techniques were utilized for this examination: 1. Automated exposure control 2. Adjustment of the mA and/or kV according to patient size 3. Use of iterative reconstruction technique. Electronically signed by: Rosy Samuels MD (10/13/2020 12:10 PM) [id number] DICTATED and SIGNED BY: ROSY SAMUELS MD DATE: 10/13/20 [id number] [facility] [address] [place] [address] IMAGING REPORT Signed PATIENT: MARGARITO SELF JACCOUNT: [id number] : 1940 LOCATION: ER AGE: 80 SEX: F EXAM STATUS: REG ER ORD. PHYSICIAN: ITALO SAMPSON APRN REASON: FALL, PAIN PROCEDURE: HIP LEFT 2V WITH PELVIS Exam performed: One view pelvis and 2 views left hip. HISTORY: Fall. DATE OF SERVICE: 10/13/2020. COMPARISON: None available FINDINGS: Single AP view pelvis and AP and frog-leg lateral view of the left hip are obtained. Normal alignment of both sacroiliac joints is preserved. There is no acute fracture or dislocation. Nonspecific bowel gas pattern IMPRESSION: Negative exam Electronically signed by: Nadia Yi MD (10/13/2020 12:33 PM) [id number] DICTATED and SIGNED BY: NADIA YI MD DATE: 10/13/20 [id number] Course & Med Decision Making: Course & Med Decision Making Pertinent Labs and Imaging studies reviewed. (See chart for details) See HPI. Patient denies dizziness, vision changes, focal weakness, abdominal pain, nausea, vomiting, diarrhea, fever, shortness of breath, chest pain, back pain, neck pain, numbness or tingling. No tenderness to the left hip and there is full range of motion of the hip. There is no deformity to the hip joint. She has no joint laxities. Right wrist full range of motion no tenderness or swelling. No laxity. Radial pulse strong present. Cap refill less than 2 seconds. No extremity edema. Patient refused wrist x-ray and stated that she does not think it is broken. CT shows no acute findings. X-rays show no acute finding. Son is taking patient home. [] Laceration repair Location: Back of scalp 1 inch Local anesthesia: 1% lidocaine Interrupted sutures/Internal sutures: 4 aurora Nerve/ligament/muscle damage: None Cleaning and irrigation: Chlorhexidine and saline The appropriate timeout was taken. The area was prepped and draped in the usual sterile fashion. The wound was copiously irrigated with normal saline and chlorhexidine. Patient tolerated well without complication. Dressing was applied to the area follow-up education is given to observe for signs and symptoms of infection, bleeding and to follow-up promptly if these occur. Patient can return in 48 hours for a wound recheck. Sutures to be removed in 7 to 10 days. Dragon Disclaimer: Dragon Disclaimer: This electronic medical record was generated, in whole or in part, using a voice recognition dictation system. Departure Departure Impression: Primary Impression: Fall Qualified Codes: W19.XXXA - Unspecified fall, initial encounter Additional Impressions: Laceration Head injury Qualified Codes: S09.90XA - Unspecified injury of head, initial encounter Hip pain, left Disposition: 01 DC HOME SELF CARE/HOMELESS Condition: STABLE Referrals: TOY DAWSON MD (PCP) Patient Instructions: Fall Prevention and Home Safety, Head Injury, Adult, Laceration Care, Adult Additional Instructions: Follow-up with primary care provider. If you begin having a severe headache or weakness on one side of your body or you begin vomiting return to the emergency room. Take medication as prescribed and remember it can make you sleepy. Scripts Acetaminophen With Codeine (ACETAMINOPHEN-COD #3 TABLET) 1 Each Tablet 1 TAB PO PRN Q6HRS PRN for PAIN, #10 TAB Prov: ITALO SAMPSON APRN 10/13/20 ITALO SAMPSON APRN Oct 13, 2020 11:45
[2020-10-13] MEDS ORDERED: LIDOCAINE 1% Multi-Dose 20 ML VIAL. INJ ONE (12:00)
[2020-10-13] MEDS ORDERED: LIDOCAINE/EPI/TETRACAINE TOPICAL GEL 3 ML. TP ONE (12:00)
--- NOTE | 2020-10-13 12:13 | RAD ---
CT head without contrast: Reason for examination: Fell with head laceration. Axial images were obtained through the brain. No contrast was administered. Ventricular systems are symmetric and not abnormally dilated concerning patient's advanced age and ge neralized cerebral atrophy. No midline shift is seen. There is no evidence of intracranial hemorrhage , infarct, mass or edema. No abnormalities of seen at the orbits. The paranasal sinuses and mastoid a ir cells appear to be clear. No acute abnormality seen in the skull. Note is made of some focal skull thickening in the left frontal bone. IMPRESSION: Cerebral atrophy but no acute intracranial abnormality evident. CT cervical spine without contrast: Helical images were obtained through the cervical spine from the skull base through the thoracic apic es with no contrast administered. Reconstruction was performed in sagittal and coronal planes. The C1 ring appears to be intact. The odontoid process is intact and normally centered between the la teral masses of C1. The vertebral bodies of the cervical spine are normally aligned anteriorly and po steriorly. No acute fracture or subluxation is seen. Posterior elements are intact. There are hypertr ophic changes off the anterior endplates from C3 through C7. There is degenerative disc disease at th e C5-6 and C6-7 disc levels. Prevertebral soft tissues are normal. There does not appear to be signif icant spinal stenosis. IMPRESSION: Degenerative spondylosis with disc disease at the C5/6 and C6-7 levels. No acute abnormality evident in the cervical spine. Exposure: One or more of the following individualized dose reduction techniques were utilized for thi s examination: 1. Automated exposure control 2. Adjustment of the mA and/or kV according to patient size 3. Use of iterative reconstruction technique. Electronically signed by: Rosy Jenkins MD (10/13/2020 12:10 PM) [id number]
--- NOTE | 2020-10-13 12:36 | RAD ---
Exam performed: One view pelvis and 2 views left hip. HISTORY: Fall. DATE OF SERVICE: 10/13/2020. COMPARISON: None available FINDINGS: Single AP view pelvis and AP and frog-leg lateral view of the left hip are obtained. Normal alignment of both sacroiliac joints is preserved. There is no acute fracture or dislocation. N onspecific bowel gas pattern IMPRESSION: Negative exam Electronically signed by: Nadia Yi MD (10/13/2020 12:33 PM) [id number]
[2020-10-13] MEDS ORDERED: ACET1TAB33 PO (12:41)
[2020-10-13] MEDS ORDERED: DIPH,PERTUSS(ACELL),TET VAC/PF 0.5 ML SYRINGE. VAX IM ONE (12:45)
== END 2020-10-13 13:22 | disposition home or self-care (01) ==
LOC: ER 11:25
DX: S01.01XA Laceration without foreign body of scalp, initial encounter (principal); M25.552 Pain in left hip; I10 Essential (primary) hypertension; Z85.118 Personal history of other malignant neoplasm of bronchus and lung; Z87.891 Personal history of nicotine dependence; Z90.710 Acquired absence of both cervix and uterus; Z95.0 Presence of cardiac pacemaker; Z98.890 Other specified postprocedural states; Z86.718 Personal history of other venous thrombosis and embolism; W01.0XXA Fall on same level from slipping, tripping and stumbling without subsequent striking against object, initial encounter; Y93.89 Activity, other specified; Y92.89 Other specified places as the place of occurrence of the external cause; Y99.8 Other external cause status
CPT/HCPCS: 12001; 70450; 72125; 73502; 90471; 90715; 99285; J3490

== ENCOUNTER → 2020-10-23 | Outpatient (CLI) | payer MEDICARE, BC ==
[2020-10-13 11:38] VITALS: BP 120/64
[~2020-10-23] MED LIST changes: +ACET1TAB33 PO
[2020-10-23 13:40] LABS: BASO # 0.1 x10^3/uL (0.0-0.2); BASO % 1 % (0-3); EOS # 0.4 x10^3/uL (0.0-0.7); EOS % 6 % (0-3); HEMATOCRIT 31.6 % (36.0-47.0); HEMOGLOBIN 10.1 g/dL (12.0-15.5); LYMPH # 1.8 x10^3/uL (1.0-4.8); LYMPH % 27 % (24-48); MEAN CORPUSCULAR HEMOGLOBIN 30 pg (25-35); MEAN CORPUSCULAR HGB CONC 32 g/dL (31-37); MEAN CORPUSCULAR VOLUME 94 fL (79-100); MONO # 0.6 x10^3/uL (0.0-1.1); MONO % 10 % (0-9); NEUT # 3.5 x10^3/uL (1.8-7.7); NEUT % 55 % (31-73); PLATELET COUNT 325 x10^3/uL (140-400); RED BLOOD COUNT 3.38 x10^6/uL (3.50-5.40); RED CELL DISTRIBUTION WIDTH 18.9 % (11.5-14.5); WHITE BLOOD COUNT 6.4 x10^3/uL (4.0-11.0)
[2020-10-23 13:58] LABS: CALCIUM 8.3 mg/dL (8.5-10.1); GFR 53.3; POTASSIUM 3.2 mmol/L (3.5-5.1)
[2020-10-23 14:04] LABS: ALBUMIN 2.5 g/dL (3.4-5.0)
[2020-10-23 14:05] LABS: ALBUMIN/GLOBULIN RATIO 0.7 (1.0-1.7); TOTAL BILIRUBIN 0.6 mg/dL (0.2-1.0)
== END ==
LOC: ONCLAB 10:09
PROVIDERS: ATTEND Internal Medicine Hematology & Oncology
DX: C34.11 Malignant neoplasm of upper lobe, right bronchus or lung (principal)
CPT/HCPCS: 36415; 80053; 85025

== ENCOUNTER → 2020-11-06 | Outpatient (CLI) | payer MEDICARE, BC ==
[2020-10-13 11:38] VITALS: BP 120/64
[~2020-11-06] MED LIST changes: +BUPIVACAINE MPF 0.25% 10 ML VIAL. ONE; +FURO-68 PO; +IOHEXOL 180 MG/ML 10 ML VIAL. ONE; +LISI10TA16 PO; -LISI10TA2 PO; +methylPREDNISolone ACETATE 80 MG/ML VIAL. ONE
--- NOTE | 2020-11-06 15:23 | PDOC1 ---
INITIAL PAIN CONSULT DATE OF SERVICE: DOS: DATE: 11/06/20 TIME: 15:15 CHIEF COMPLAINT: Chief Complaint: Right hip joint pain HISTORY OF PRESENT ILLNESS: 80-year-old female presents with history of pain in the right hip for about a year but worse over the past 1 month. Patient reports she had received a injection in the orthopedic department outpatient and it did very well for almost a year. Patient reports the pain now is identical to that what it was about a year ago in the lateral aspect of the right hip with aching and dull pain worse with walking standing and radiating to the lateral thigh on the right side only to the level of the right knee. Patient reports no pain on the left side. The pain in the right side is much worse with standing walking putting all of her weight on one leg stepping up on a curb also with abduction of the right lower extremity. Patient reports it wakes her from sleep if she lays on her right side about two times a night does not affect her bowel bladder control but does affect her ability to walk she is not use any assistive device to ambulate currently. Patient is tried Tylenol 3 which does decrease the pain also do some stretching and strengthening on her own. Patient has had no formal physical therapy at this time or other modalities. Patient scribes pain is aching and shooting on the left side and the left lateral thigh. Patient reports no motor or sensory deficits no bowel or bladder incontinence or other complaints. PAST MEDICAL HISTORY: PMH: Hypertension, COPD, shortness of breath, arthritis, history of breast cancer with chemotherapy and radiation 2014. PREVIOUS SURGERIES: Past Surgical Hx: Pacemaker placement, hysterectomy, left mastectomy, intravenous port placement CURRENT MEDICATIONS: Current Meds: Active Scripts Medications Dose Route/Sig Max Daily Dose Days Date Category Lasix (Furosemide) 40 Mg Tablet 1 Tab PO DAILY 30 11/06/20 Reported Acetaminophen-Cod #3 Tablet (Acetaminophen/Codeine Phosphate) 1 Each Tablet 1 Tab PO PRN Q6HRS PRN 10/13/20 Rx Lyrica (Pregabalin) 50 Mg Capsule 1 Cap PO HS 30 08/29/20 Rx Calcium 600 + Vit D 400 Softgl (Calcium Carbonate/Vitamin D3) 1 Each Capsule 1 Cap PO BID 30 08/20/20 Reported Pantoprazole Sodium (Pantoprazole Sodium) 40 Mg Tablet.dr 40 Mg PO DAILYAC 08/20/20 Reported Flecainide Acetate 50 Mg Tablet 50 Mg PO DAILY 02/08/20 Reported Atorvastatin Calcium 10 Mg Tablet 1 Tab PO DAILY 30 04/28/19 Rx Symbicort 80-4.5 Mcg Inhaler (Budesonide/Formoterol Fumarate) 10.2 Gm Hfa.aer.ad 10.2 Gm INH BID 04/28/19 Reported Xarelto (Rivaroxaban) 20 Mg Tablet 10 Mg PO HS 05/17/18 Reported Proair Hfa Inhaler (Albuterol Sulfate) 8.5 Gm Hfa.aer.ad 2 Puff IH PRN Q4-6HRS 05/20/15 Reported Albuterol Sulfate Neb Soln (Albuterol Sulfate) 2.5 Mg/3 Ml Vial.neb 2.5 Mg IH PRN QID PRN 01/15/14 Reported ALLERGIES; Allergies: Coded Allergies: No Known Drug Allergies (Unverified , 03/21/20) FAMILY HISTORY: Family Hx: Major medical problems or conditions that she is aware of SOCIAL HISTORY: Social Hx: Patient does not drink alcohol quit smoking 17 years ago does not use any illegal illicit recreational drugs is lives with her spouse lives locally in [facility] and reports that she is currently retired. REVIEW OF SYSTEMS: ROS: Positive for those items mentioned in history of present illness, all systems are reviewed, otherwise negative ,and are complete full and well-documented on patient's chart. PHYSICAL EXAM: VS: Blood pressure is 137/92 pulse 121 respirations 18 temperature is 98.6 F height is 5 feet 7 inches weight is 201 pounds PE: PHYSICAL EXAMINATION: GENERAL: The patient is awake, alert, oriented, appropriate, very pleasant demeanor HEENT: Shows normocephalic, atraumatic. Extraocular movements are intact and symmetrical. Oral cavity: Mucous membranes moist and pink. Dentition is intact. NECK: Shows anterior throat supple without palpable lymphadenopathy noted. Swallow reflex symmetrical. CHEST: Shows normal on inspection. Breath sounds are clear bilaterally, distant but no rales or rhonchi auscultated. HEART: Shows S1, S2 clear. No murmurs auscultated. ABDOMEN: Soft, nontender, nondistended, obese. No palpable organomegaly is noted. No rebound or guarding demonstrated. BACK: Shows spine grossly in the midline. Normal-appearing cervical lordotic curvature. There is increased thoracic kyphosis, some minor flattening of the lumbar lordotic curvature. Lumbar paraspinous muscles show symmetrical on inspection, on palpation shows some moderate tenderness diffusely throughout the upper, middle and lower distribution of the paraspinous muscles bilaterally, but without specific trigger points, without radiation of pain. The patient has good rotational motion of the lumbar spine, both laterally as well as extension and flexion without significant difficulty. No tenderness over the spinous processes, sacrum or sacroiliac regions. EXTREMITIES: Lower extremities show deep tendon reflexes 1+ in the patellar and tendo calcaneus tendons. Motor exam is four on a scale of 5 with right dorsiflexion, extension, quadriceps and hamstring flexion and four/5 on the left. Peripheral pulses are one posterior tibial. No peripheral edema is noted bilaterally. Lower extremities are warm and dry to touch, equal in color and appearance. Patient's right hip shows significant tenderness over the right lateral aspect of the hip in the greater trochanter on the right side only with significant tenderness and radiation into the lateral thigh to the level of the knee with moderate to deep palpation. Left side is very minimally tender over the greater trochanter without radiation. SKIN: Shows warm and dry, good turgor. No edema. No sores, rashes or bruising throughout. IMPRESSION: Impression: 80-year-old female with approximate 1 year history right lateral hip pain co nsistent with greater trochanteric bursitis Hypertension Arthritis COPD History of breast cancer with chemotherapy and radiation Plan: Options were discussed with the patient including conservative medical management is continued physical therapies interventional techniques. Patient would like to pursue interventional techniques. We discussed a right greater trochanteric bursa injection using descriptions as well as anatomical models to describe the procedure. Risks discussed including but not limited to bleeding infection possibility of intravascular ejection sequelae spread to local anesthetic numbness side effects steroid medication special fluoroscopy and portals regarding pain control. Patient understands wished to proceed patient will return to clinic in approximate 2 weeks for follow-up was counseled as to return appointment activity level and side effects to be aware of. Under sterile prep and drape using C-arm fluoroscopic guidance patient left lateral decubitus position the right greater trochanter was visualized with AP fluoroscopy and using 1% lidocaine topically anesthetized over the lateral aspect of the greater trochanter on the skin. Using a 25-gaugue needle under direct fluoroscopic visualization, the greater anterior bursa was injected with 1.5 cc of contrast showing good spread within the bursa itself and without washout or uptake. At this time solution of 4 cc 0.25% ropivacaine and 80 mg Depo-Medrol was then injected into the right greater trochanteric bursa. Needle was removed and sterile bandage was applied. Patient tolerated the procedure well and had no complications. ROMEL HERNDON MD Nov 06, 2020 15:23
--- NOTE | 2020-11-06 15:24 | PDOC4 ---
PROCEDURE Procedure Patient was consented for right greater trochanteric bursa injection with fl uoroscopic guidance. Risks were discussed including but not limited to bleeding infection possibility of intravascular injection sequelae spread local anesthetic numbness side effects steroid medication exposure fluoroscopy and poor results regarding pain control. Patient understands and wishes to proceed. Under sterile prep and drape using C-arm fluoroscopic guidance patient left lateral decubitus position the right greater trochanter was visualized with AP fluoroscopy and using 1% lidocaine topically anesthetized over the lateral aspect of the greater trochanter on the skin. Using a 25-gaugue needle under direct fluoroscopic visualization, the greater anterior bursa was injected with 1.5 cc of contrast showing good spread within the bursa itself and without washout or uptake. At this time solution of 4 cc 0.25% ropivacaine and 80 mg Depo-Medrol was then injected into the right greater trochanteric bursa. Needle was removed and sterile bandage was applied. Patient tolerated the procedure well and had no complications. ROMEL HERNDON MD Nov 06, 2020 15:24
== END | disposition home or self-care (01) ==
LOC: PNCL 13:45
PROVIDERS: ATTEND Anesthesiology
DX: M25.551 Pain in right hip (principal); I10 Essential (primary) hypertension; J44.9 Chronic obstructive pulmonary disease, unspecified; M19.90 Unspecified osteoarthritis, unspecified site; E78.00 Pure hypercholesterolemia, unspecified; I48.91 Unspecified atrial fibrillation; K21.9 Gastro-esophageal reflux disease without esophagitis; E66.9 Obesity, unspecified; Z85.3 Personal history of malignant neoplasm of breast; Z87.891 Personal history of nicotine dependence; Z90.710 Acquired absence of both cervix and uterus; Z98.890 Other specified postprocedural states; Z79.899 Other long term (current) drug therapy
CPT/HCPCS: 20610; 77002; J1040; J3490; Q9965; 20605

== ENCOUNTER → 2020-11-08 | Outpatient (CLI) | payer MEDICARE, BC ==
[2020-10-13 11:38] VITALS: BP 120/64
[~2020-11-08] MED LIST changes: -BUPIVACAINE MPF 0.25% 10 ML VIAL. ONE; -IOHEXOL 180 MG/ML 10 ML VIAL. ONE; -methylPREDNISolone ACETATE 80 MG/ML VIAL. ONE
--- NOTE | 2020-11-08 16:43 | RAD ---
EXAM: NM PET/CT SKULL BASE TO MID THIGH EXAM DATE: 11/08/2020 INDICATION: Restaging left breast cancer RADIOPHARMACEUTICAL: 14.9 mCi of F-18 Fluorodeoxyglucose (FDG) I.V. via the right hand. TECHNIQUE: Patient weight: 201 pounds. Following at least four-hour fasting, the patient's blood gluc ose was 150 mg/dl. Approximately 1 hour after administration of FDG, overlapping emission scanning w as performed from the orbital meatal line through the pelvis. A low-dose CT was performed for attenu ation correction purposes and anatomic localization. Fused images of PET and CT were reviewed. Any s tandardized uptake values (SUV) reported are maximum values within a volume region of interest, expre ssed in gm/ml. COMPARISON: PET CT of 05/06/2020 FINDINGS: PET: Pleural-based right upper lobe scarlike mass measures 3.0 x 2.1 cm and shows FDG uptake to max SUV of 3.1, down from 4.2 x 2.8 cm and a max SUV of 5.9 previously. No new abnormal FDG uptake. Background mediastinal uptake is 3.4 Max SUV while background hepatic uptake is 3.[address]: In the head and neck, bilateral carotid calcifications. No cervical adenopathy or mass. In the chest, left mastectomy surgical changes are redemonstrated. A right tunneled chest port from a jugular approach is present with the tip at the cavoatrial junction. Left chest multichamber pacemak er is present with leads in the right atrium and right ventricle, similar to prior. Heart is moderate ly enlarged. Dense multivessel coronary calcifications remain present. No mediastinal mass or adenopa thy is present. Lungs show improvement in lung nodules, largest in the superior segment left lower lobe now measuring 9 x 12 mm (image 161 series 3) compared with 10 x 14 mm previously (image 93 series 3 on the prior s tudy). Stable left apical nodule. Bilateral moderate pleural effusions have developed in the interval . On the right, this shows loculation. No pneumothorax. No acute or aggressive appearing osseous lesi ons. Chest wall shows left mastectomy. Abdomen and pelvis show layering densities in the gallbladder that could reflect tiny gallstones. Ect vera of the infrarenal abdominal aorta up to 2.3 cm is present in the setting of extensive systemic a rterial calcifications. Uterus is absent. No pelvic adenopathy mass or fluid collection. Scattered ar terial calcifications. No acute or aggressive appearing osseous lesions.. IMPRESSION: 1. Continued decrease in size and metabolic activity of lung nodules including the dominant pleural-b ased mass in the posterior right upper lobe. No evidence of disease progression. 2. Interval development of bilateral pleural effusions. Otherwise stable findings. Electronically signed by: Yue Sanchez MD (11/08/2020 4:41 PM) [id number]
== END ==
LOC: PETSC 11:16
PROVIDERS: ATTEND Internal Medicine Hematology & Oncology
DX: C79.81 Secondary malignant neoplasm of breast (principal); J94.9 Pleural condition, unspecified; R91.1 Solitary pulmonary nodule; I77.811 Abdominal aortic ectasia; I65.23 Occlusion and stenosis of bilateral carotid arteries; Z90.13 Acquired absence of bilateral breasts and nipples
CPT/HCPCS: 78815; A9552

== ENCOUNTER → 2020-11-11 | Outpatient (CLI) | payer MEDICARE, BC ==
[2020-10-13 11:38] VITALS: BP 120/64
[~2020-11-11] MED LIST changes: -LISI10TA16 PO; +LISI10TA2 PO
[2020-11-11 11:08] LABS: CALCIUM 8.5 mg/dL (8.5-10.1); CREATININE 1.1 mg/dL (0.6-1.0); GFR 47.8; POTASSIUM 3.4 mmol/L (3.5-5.1)
[2020-11-11 11:14] LABS: ALBUMIN 2.8 g/dL (3.4-5.0); ALBUMIN/GLOBULIN RATIO 0.8 (1.0-1.7); TOTAL BILIRUBIN 0.3 mg/dL (0.2-1.0); TOTAL PROTEIN 6.3 g/dL (6.4-8.2)
[2020-11-11 11:24] LABS: BASO # 0.1 x10^3/uL (0.0-0.2); BASO % 1 % (0-3); EOS # 0.1 x10^3/uL (0.0-0.7); EOS % 2 % (0-3); HEMATOCRIT 32.4 % (36.0-47.0); HEMOGLOBIN 10.4 g/dL (12.0-15.5); LYMPH # 1.6 x10^3/uL (1.0-4.8); LYMPH % 20 % (24-48); MEAN CORPUSCULAR HEMOGLOBIN 30 pg (25-35); MEAN CORPUSCULAR HGB CONC 32 g/dL (31-37); MEAN CORPUSCULAR VOLUME 93 fL (79-100); MONO # 0.8 x10^3/uL (0.0-1.1); MONO % 10 % (0-9); NEUT # 5.5 x10^3/uL (1.8-7.7); NEUT % 68 % (31-73); PLATELET COUNT 319 x10^3/uL (140-400); RED BLOOD COUNT 3.47 x10^6/uL (3.50-5.40); RED CELL DISTRIBUTION WIDTH 18.1 % (11.5-14.5)
== END ==
LOC: ONCLAB 10:20
PROVIDERS: ATTEND Internal Medicine Hematology & Oncology
DX: C50.212 Malignant neoplasm of upper-inner quadrant of left female breast (principal)
CPT/HCPCS: 36415; 80053; 85025

== ENCOUNTER → 2020-11-27 | Outpatient (CLI) | payer MEDICARE, BC ==
[~2020-11-27] MED LIST changes: +LISI10TA16 PO; -LISI10TA2 PO
--- NOTE | 2020-11-28 09:58 | RAD ---
MR#: [id number] Date of Study: 11/27/2020 Ordering Physician: BYRON TAVERA, Referring Physician: BYRON TAVERA, Tech: Orly Cummins, RDMS, RVT, RTR APPROVED REPORT Patient Location: OUT-PATIENT Indications PAD VELOCITY AND DOPPLER WAVEFORM ANALYSIS RIGHT cm/secWaveformSeverity LEFT cm/secWaveform Severity pCFA 176.4pCFA 149.3 dCFA 133.0dCFA 176.7 Prof Fem Art. 87.9Prof Fem Art. 132.3 Fem Art Prox. 121.5Fem Art Prox. 133.3 Fem Art Mid. 78.7Fem Art Mid. 125.9 Fem Art Dist. 80.5Fem Art Dist. 99.0 Pop Art(AK) 95.3Pop Art(AK) 87.0 RACING MECHANIC Prox. 50.6PTA Prox. 43.4 RACING MECHANIC Dist. 83.9PTA Dist. 59.2 Per Art Prox. 65.1Per Art Prox. 54.4 DODIE Prox. 40.5ATA Prox. 53.8 DPA 14DPA 92 Findings Grayscale images of the bilateral lower extremity arterial vessels demonstrate moderate diffuse ather osclerosis. Spectral waveforms and color Doppler are as noted above and overall there is less than 5 0% stenosis in the above-knee vessels. There is three-vessel runoff below the knee. Probable diffus e severe disease involving the right dorsalis pedis artery. Critical Notification Critical Value: No <Conclusion> 1. No significant lower extremity arterial disease bilaterally. Signed by : Byron Tavera, Electronically Approved : 11/28/2020 09:58:26
--- NOTE | 2020-11-28 09:59 | RAD ---
MR#: [id number] Date of Study: 11/27/2020 Ordering Physician: BYRON TAVERA, Referring Physician: BYRON TAVERA, Tech: Orly Cummins RDMS, RVT, RTR APPROVED REPORT Patient Location: OUT-PATIENT Exam Type: Ankle to Brachial Index Indications PAD Pressures/Indices RightABI LeftABI Brachial [id number] 1.08 Ankle(PT) 142mmHgAnkle(PT) 138mmHg Ankle(DP) 141mmHgAnkle(DP) 140mmHg Findings Normal bilateral ABIs as noted above. Critical Notification Critical Value: No <Conclusion> 1. Normal bilateral REBECA Signed by : Byron Tavera, Electronically Approved : 11/28/2020 09:58:57
--- NOTE | 2020-11-28 10:08 | RAD ---
MR#: [id number] Date of Study: 11/27/2020 Ordering Physician: BYRON TAVERA, Referring Physician: BYRON TAVERA, Tech: Orly Cummins RDMS, RVT, RTR APPROVED REPORT Bilateral Lower Extremity Venous Study for DVT Patient Location: OUT-PATIENT Indications Venous Isufficiency Findings The bilateral lower extremity deep veins were evaluated for thrombus with color Doppler, spectral and grayscale images. On the right the grayscale images of the common femoral, superficial femoral and popliteal veins do n ot demonstrate any evidence of thrombus and these veins appear to be compressible. The below-knee vei ns were not well visualized but grossly appear to be compressible. Spectral imaging and color Doppler do not reveal any evidence of obstruction to flow with normal respirophasic variation above the knee . Below the knee there is spontaneous flow noted. On the left, the grayscale images of the common femoral, superficial femoral and popliteal veins do n ot demonstrate any evidence of thrombus and these veins appear to be compressible. The below-knee vei ns again were not well visualized but grossly appear to be compressible. Spectral imaging and color D oppler do not reveal any evidence of obstruction to flow with normal respirophasic variation above th e knee. The below-knee veins demonstrate spontaneous flow. Critical Notification Critical Value: No <Conclusion> Negative for DVT in the bilateral lower extremities. Signed by : Byron Tavera, Electronically Approved : 11/28/2020 10:07:29
== END ==
LOC: US 12:29
PROVIDERS: ATTEND Internal Medicine Cardiovascular Disease
DX: I87.2 Venous insufficiency (chronic) (peripheral) (principal); I73.9 Peripheral vascular disease, unspecified
CPT/HCPCS: 93922; 93925; 93970

== ENCOUNTER → 2020-12-11 | Outpatient (CLI) | payer MEDICARE, BC ==
[2020-12-11 11:44] LABS: BASO # 0.1 x10^3/uL (0.0-0.2); BASO % 1 % (0-3); EOS # 0.1 x10^3/uL (0.0-0.7); EOS % 1 % (0-3); HEMATOCRIT 35.1 % (36.0-47.0); HEMOGLOBIN 11.3 g/dL (12.0-15.5); LYMPH # 0.8 x10^3/uL (1.0-4.8); LYMPH % 11 % (24-48); MEAN CORPUSCULAR HEMOGLOBIN 30 pg (25-35); MEAN CORPUSCULAR HGB CONC 32 g/dL (31-37); MEAN CORPUSCULAR VOLUME 94 fL (79-100); MONO # 0.6 x10^3/uL (0.0-1.1); MONO % 8 % (0-9); NEUT # 5.8 x10^3/uL (1.8-7.7); NEUT % 79 % (31-73); PLATELET COUNT 263 x10^3/uL (140-400); RED BLOOD COUNT 3.75 x10^6/uL (3.50-5.40); RED CELL DISTRIBUTION WIDTH 15.8 % (11.5-14.5); WHITE BLOOD COUNT 7.4 x10^3/uL (4.0-11.0)
[2020-12-11 11:54] LABS: CALCIUM 8.9 mg/dL (8.5-10.1); CREATININE 1.2 mg/dL (0.6-1.0); GFR 43.2
[2020-12-11 12:00] LABS: ALBUMIN 3.1 g/dL (3.4-5.0); ALBUMIN/GLOBULIN RATIO 0.9 (1.0-1.7); TOTAL BILIRUBIN 0.6 mg/dL (0.2-1.0); TOTAL PROTEIN 6.7 g/dL (6.4-8.2)
[2020-12-11 12:38] LABS: FREE T4 0.97 ng/dL (0.76-1.46); THYROID STIM HORMONE (TSH) 0.734 uIU/mL (0.358-3.74)
== END ==
LOC: ONCLAB 11:08
PROVIDERS: ATTEND Internal Medicine Hematology & Oncology
DX: C34.11 Malignant neoplasm of upper lobe, right bronchus or lung (principal); D64.9 Anemia, unspecified
CPT/HCPCS: 36415; 80053; 82607; 82746; 83540; 83550; 84439; 84443; 85025

== ENCOUNTER → 2020-12-18 | Outpatient (CLI) | payer MEDICARE, BC ==
[2020-12-18 11:19] LABS: BASO # 0.1 x10^3/uL (0.0-0.2); BASO % 1 % (0-3); EOS # 0.2 x10^3/uL (0.0-0.7); EOS % 3 % (0-3); HEMATOCRIT 32.9 % (36.0-47.0); HEMOGLOBIN 10.8 g/dL (12.0-15.5); LYMPH # 1.7 x10^3/uL (1.0-4.8); LYMPH % 25 % (24-48); MEAN CORPUSCULAR HEMOGLOBIN 31 pg (25-35); MEAN CORPUSCULAR HGB CONC 33 g/dL (31-37); MEAN CORPUSCULAR VOLUME 93 fL (79-100); MONO # 0.6 x10^3/uL (0.0-1.1); MONO % 8 % (0-9); NEUT # 4.3 x10^3/uL (1.8-7.7); NEUT % 63 % (31-73); PLATELET COUNT 251 x10^3/uL (140-400); RED BLOOD COUNT 3.52 x10^6/uL (3.50-5.40); RED CELL DISTRIBUTION WIDTH 15.2 % (11.5-14.5); WHITE BLOOD COUNT 6.9 x10^3/uL (4.0-11.0)
[2020-12-18 12:07] LABS: CALCIUM 8.4 mg/dL (8.5-10.1); CREATININE 1.4 mg/dL (0.6-1.0); GFR 36.2; POTASSIUM 3.9 mmol/L (3.5-5.1)
[2020-12-18 12:11] LABS: MAGNESIUM 2.2 mg/dL (1.8-2.4)
[2020-12-18 12:15] LABS: ALBUMIN 2.8 g/dL (3.4-5.0); ALBUMIN/GLOBULIN RATIO 0.8 (1.0-1.7); TOTAL BILIRUBIN 0.4 mg/dL (0.2-1.0); TOTAL PROTEIN 6.4 g/dL (6.4-8.2)
== END ==
LOC: ONCLAB 10:53
PROVIDERS: ATTEND Physician Assistant
DX: C34.11 Malignant neoplasm of upper lobe, right bronchus or lung (principal); N18.32 Chronic kidney disease, stage 3b
CPT/HCPCS: 36415; 80053; 82728; 83615; 83735; 83921; 85025

== ENCOUNTER → 2020-12-25 | Outpatient (CLI) | payer MEDICARE, BC ==
[2020-12-25 11:09] LABS: BASO # 0.1 x10^3/uL (0.0-0.2); BASO % 1 % (0-3); EOS # 0.2 x10^3/uL (0.0-0.7); EOS % 2 % (0-3); HEMATOCRIT 34.2 % (36.0-47.0); HEMOGLOBIN 11.1 g/dL (12.0-15.5); LYMPH # 1.5 x10^3/uL (1.0-4.8); LYMPH % 19 % (24-48); MEAN CORPUSCULAR HEMOGLOBIN 31 pg (25-35); MEAN CORPUSCULAR HGB CONC 33 g/dL (31-37); MEAN CORPUSCULAR VOLUME 95 fL (79-100); MONO # 0.7 x10^3/uL (0.0-1.1); MONO % 9 % (0-9); NEUT # 5.3 x10^3/uL (1.8-7.7); NEUT % 69 % (31-73); PLATELET COUNT 252 x10^3/uL (140-400); RED CELL DISTRIBUTION WIDTH 15.9 % (11.5-14.5); WHITE BLOOD COUNT 7.7 x10^3/uL (4.0-11.0)
[2020-12-25 11:18] LABS: CALCIUM 7.7 mg/dL (8.5-10.1); CREATININE 1.2 mg/dL (0.6-1.0); GFR 43.2; POTASSIUM 4.3 mmol/L (3.5-5.1)
[2020-12-25 11:24] LABS: ALBUMIN/GLOBULIN RATIO 0.9 (1.0-1.7); TOTAL BILIRUBIN 0.5 mg/dL (0.2-1.0); TOTAL PROTEIN 6.5 g/dL (6.4-8.2)
== END ==
LOC: ONCLAB 10:45
PROVIDERS: ATTEND Physician Assistant
DX: N18.32 Chronic kidney disease, stage 3b (principal); C34.11 Malignant neoplasm of upper lobe, right bronchus or lung; M87.851 Other osteonecrosis, right femur; E83.51 Hypocalcemia; R06.00 Dyspnea, unspecified
CPT/HCPCS: 36415; 80053; 85025

== ENCOUNTER 2020-12-26 04:28 | Emergency (ER) | payer MEDICARE, BC ==
[~2020-12-26] VITALS: Ht 170.2 cm; Wt 89.1 kg
--- NOTE | 2020-12-26 04:56 | ED.ADGEN ---
Past Medical History Past Medical History: Cancer, COPD, DVT, Hypertension Additional Past Medical Histor: breast and lung cancer, PE, CRF Past Surgical History: Hysterectomy, Pacemaker, Other Additional Past Surgical Histo: trach, left masectomy, right upper lobectomy, left lower lobe removed Smoking Status: Former Smoker Alcohol Use: None Drug Use: None General Adult EDM: Chief Complaint: SHORTNESS OF BREATH HPI: HPI: Patient is a 80 year old female coming in for difficulty breathing. States that symptoms started yesterday after she got home after getting chemotherapy infusion of nivolumab (from chart review, patient cannot confirm/remember the medication name) around 1400. She has a history of breast cancer, lung cancer, DVTPE, stage COPD, A. fib with RVR previous tobacco use, pacemaker, and hypertension. Patient has not had increasing cough but says she feels like there is "a band around her chest and has difficulty breathing. Patient states that she has been on 2 L nasal cannula since August when she was hospitalized with COVID-19. Had her first COVID-19 vaccine as scheduled for her next 1 in about 1 week. Denies any fevers, cough, vomiting. Patient is not having chest pain or pain anywhere. Review of Systems: Review of Systems: All other systems within normal limits except for as noted in the HPI Current Medications: Current Medications Medications (Trade) Dose Ordered Sig/Lanie Start Time Stop Time Status Last Admin Dose Admin Albuterol/ Ipratropium (Duoneb) 3 ml 1X ONCE 12/26/20 05:00 12/26/20 05:01 DC 12/26/20 05:50 3 ML Allergies: Allergies: Allergies Coded Allergies Type Severity Reaction Last Updated Verified No Known Drug Allergies 03/21/20 No Physical Exam: PE: Constitutional: Well developed, well nourished, no acute distress, non-toxic appearance. a HENT: Normocephalic, atraumatic, bilateral external ears normal, nose normal. [] Eyes: PERRLA, conjunctiva normal, no discharge. [] Neck: No rigidity, supple, no stridor. [] Cardiovascular: Regular rate and rhythm, brisk cap refill [] Lungs & Thorax: Symmetric chest rise, mild tachypnea, diminished breath sounds bilaterally [] Abdomen: Soft, nondistended. Skin: Warm, dry, no erythema, no rash. [] Back: Unremarkable Extremities: No deformities, range of motion grossly intact, no lower extremity edema [] Neurologic: Alert and oriented X 3, no focal deficits noted. [] Psychologic: Affect normal, judgement normal, mood normal. [] Current Patient Data: Labs: Laboratory Tests Test 12/26/20 05:00 12/26/20 05:20 12/26/20 06:30 White Blood Count 6.4 x10^3/uL (4.0-11.0) Red Blood Count 3.65 x10^6/uL (3.50-5.40) Hemoglobin 11.0 g/dL (12.0-15.5) L Hematocrit 34.8 % (36.0-47.0) L Mean Corpuscular Volume 95 fL (79-100) Mean Corpuscular Hemoglobin 30 pg (25-35) Mean Corpuscular Hemoglobin Concent 32 g/dL (31-37) Red Cell Distribution Width 15.5 % (11.5-14.5) H Platelet Count 252 x10^3/uL (140-400) Neutrophils (%) (Auto) 70 % (31-73) Lymphocytes (%) (Auto) 20 % (24-48) L Monocytes (%) (Auto) 7 % (0-9) Eosinophils (%) (Auto) 2 % (0-3) Basophils (%) (Auto) 1 % (0-3) Neutrophils # (Auto) 4.5 x10^3/uL (1.8-7.7) Lymphocytes # (Auto) 1.3 x10^3/uL (1.0-4.8) Monocytes # (Auto) 0.5 x10^3/uL (0.0-1.1) Eosinophils # (Auto) 0.1 x10^3/uL (0.0-0.7) Basophils # (Auto) 0.1 x10^3/uL (0.0-0.2) Prothrombin Time 26.3 SEC (11.7-14.0) H Prothrombin Time INR 2.4 (0.8-1.1) H D-Dimer (Nadia) 2.15 ug/mlFEU (0.00-0.50) H Sodium Level 144 mmol/L (136-145) Potassium Level 4.2 mmol/L (3.5-5.1) Chloride Level 108 mmol/L (98-107) H Carbon Dioxide Level 27 mmol/L (21-32) Anion Gap 9 (6-14) Blood Urea Nitrogen 22 mg/dL (7-20) H Creatinine 1.2 mg/dL (0.6-1.0) H Estimated GFR (Cockcroft-Gault) 43.2 BUN/Creatinine Ratio 18 (6-20) Glucose Level 124 mg/dL (70-99) H Lactic Acid Level 1.1 mmol/L (0.4-2.0) Calcium Level 8.1 mg/dL (8.5-10.1) L Phosphorus Level 3.4 mg/dL (2.6-4.7) Magnesium Level 2.3 mg/dL (1.8-2.4) Total Bilirubin 0.5 mg/dL (0.2-1.0) Aspartate Amino Transferase (AST) 26 U/L (15-37) Alanine Aminotransferase (ALT) 26 U/L (14-59) Alkaline Phosphatase 95 U/L (46-116) Troponin I Quantitative < 0.017 ng/mL (0.000-0.055) QK-Gnv-X-Type Natriuretic Peptide 6286 pg/mL (0-449) H Total Protein 6.4 g/dL (6.4-8.2) Albumin 3.0 g/dL (3.4-5.0) L Albumin/Globulin Ratio 0.9 (1.0-1.7) L POC Venous pH 7.32 (7.32-7.42) POC Venous pCO2 53 mmHg (41-51) H POC Venous pO2 55 mmHg (20-40) H Venous Blood HCO3 27 mmol/L (24-28) POC Venous O2 Saturation (Brian) 85 % POC FiO2 21.0 Urine Collection Type Void Urine Color Farida Urine Clarity Clear Urine pH 5.0 (<5.0-8.0) Urine Specific [place] >=1.030 (1.000-1.030) Urine Protein 30 mg/dL (NEG-TRACE) Urine Glucose (UA) Negative mg/dL (NEG) Urine Ketones (Stick) Negative mg/dL (NEG) Urine Blood Negative (NEG) Urine Nitrite Negative (NEG) Urine Bilirubin Small (NEG) Urine Urobilinogen Dipstick 1.0 mg/dL (0.2 mg/dL) Urine Leukocyte Esterase Negative (NEG) Urine RBC 0 /HPF (0-2) Urine WBC Occ /HPF (0-4) Urine Squamous Epithelial Cells Mod /LPF Urine Bacteria 0 /HPF (0-FEW) Urine Hyaline Casts Occasional /HPF Urine Mucus Slight /LPF Laboratory Tests 12/26/20 05:00 Laboratory Tests 12/26/20 05:00 Vital Signs: Vital Signs Date Time Temp Pulse Resp B/P (MAP) Pulse Ox O2 Delivery O2 Flow Rate FiO2 12/26/20 06:36 88 16 157/82 (107) 100 Nasal Cannula 3.0 12/26/20 04:30 97.7 97.7 EKG: EKG: Irregular regular rhythm, left axis deviation, no ST elevation depression, base line somewhat obscured by artifact. Heart rate 90 bpm [] Heart Score: C/O Chest Pain: No Risk Factors: Risk Factors: DM, Current or recent (<one month) smoker, HTN, HLP, family history of CAD, obesity. Risk Scores: Score 0 - 3: 2.5% MACE over next 6 weeks - Discharge Home Score 4 - 6: 20.3% MACE over next 6 weeks - Admit for Clinical Observation Score 7 - 10: 72.7% MACE over next 6 weeks - Early Invasive Strategies Radiology/Procedures: Radiology/Procedures: XR CHEST 1V INDICATION: Reason: dyspnea / Spl. Instructions: / History: . COMPARISON STUDY: 08/20/2022. FINDINGS: Life Support Devices: Right IJ Port-A-Cath. Left pectoral pacemaker. Lungs: Normal lung volume. Bibasilar heterogeneous opacities. Stable right apical mass. Pleura: Small bilateral pleural effusions. Heart and Mediastinum: Stable cardiomediastinal silhouette and great vessels. Bones and Soft Tissues: Stable regional skeleton and soft tissues. IMPRESSION: 1. Small bilateral pleural effusions. 2. Bibasilar diffuse opacities, which may represent subsegmental/relaxation atelectasis. 3. Stable right apical mass. [] Course & Med Decision Making: Course & Med Decision Making Pertinent Labs and Imaging studies reviewed. (See chart for details) Care transitioned to Dr Lobato at shift change, pending re-eval after neb. Patient is an 80-year-old female with history of breast cancer and lung cancer, under chemo treatment currently. She also has history of COPD, former smoker, she is on oxygen at home, she is also have DuoNeb treatment at home. Patient a lso history of CHF, on Lasix at home. Patient presented earlier this morning for increased shortness of air after chemo daily yesterday. Patient was given nebulizer treatment in the ER, she feels much better. Patient has history of DVT and PE, she is currently on Xarelto. Patient declined admission, she says she feels better and would like to go home. Patient had all the medications he needed at home include Lasix, oxygen, DuoNeb treatment, Xarelto. Her will take her home today. [email or web address] Disclaimer: [employer] Disclaimer: This electronic medical record was generated, in whole or in part, using a voice recognition dictation system. Departure Departure Impression: Primary Impression: Shortness of breath Disposition: 01 DC HOME SELF CARE/HOMELESS Condition: IMPROVED Referrals: TOY DAWSON MD (PCP) Follow-up with your family physician on Wednesday for reevaluation. Patient Instructions: Shortness of Breath Additional Instructions: Thank you for visiting our Emergency Department. We appreciate you trusting us with your care. If any additional problems come up don't hesitate to return to visit us. Please follow up with your primary care provider so they can plan additional care if needed and know about the problem that you had. If symptoms worsen come back to the Emergency Department. Any concerning symptoms that start such as chest pain, shortness of air, weakness or numbness on one side of the body, running high fevers or any other concerning symptoms return to the ER. DAVID MUÑOZ MD Dec 26, 2020 04:56 QUIANA LOBATO DO Dec 26, 2020 07:26
--- NOTE | 2020-12-26 05:19 | RAD ---
XR CHEST 1V INDICATION: Reason: dyspnea / Spl. Instructions: / History: . COMPARISON STUDY: 08/20/2022. FINDINGS: Life Support Devices: Right IJ Port-A-Cath. Left pectoral pacemaker. Lungs: Normal lung volume. Bibasilar heterogeneous opacities. Stable right apical mass. Pleura: Small bilateral pleural effusions. Heart and Mediastinum: Stable cardiomediastinal silhouette and great vessels. Bones and Soft Tissues: Stable regional skeleton and soft tissues. IMPRESSION: 1. Small bilateral pleural effusions. 2. Bibasilar diffuse opacities, which may represent subsegmental/relaxation atelectasis. 3. Stable right apical mass. Electronically signed by: Benito Florence MD (12/26/2020 5:16 AM) [facility]
[2020-12-26 05:21] LABS: BASO # 0.1 x10^3/uL (0.0-0.2); BASO % 1 % (0-3); EOS # 0.1 x10^3/uL (0.0-0.7); EOS % 2 % (0-3); HEMATOCRIT 34.8 % (36.0-47.0); LYMPH # 1.3 x10^3/uL (1.0-4.8); LYMPH % 20 % (24-48); MEAN CORPUSCULAR HEMOGLOBIN 30 pg (25-35); MEAN CORPUSCULAR HGB CONC 32 g/dL (31-37); MEAN CORPUSCULAR VOLUME 95 fL (79-100); MONO # 0.5 x10^3/uL (0.0-1.1); MONO % 7 % (0-9); NEUT # 4.5 x10^3/uL (1.8-7.7); NEUT % 70 % (31-73); PLATELET COUNT 252 x10^3/uL (140-400); RED BLOOD COUNT 3.65 x10^6/uL (3.50-5.40); RED CELL DISTRIBUTION WIDTH 15.5 % (11.5-14.5); WHITE BLOOD COUNT 6.4 x10^3/uL (4.0-11.0)
[2020-12-26 05:24] LABS: ISTAT BE VENOUS 1 mmol/L (0-3); ISTAT HCO3 VEN 27 mmol/L (24-28); ISTAT PCO2 VEN 53 mmHg (41-51); ISTAT PH VEN 7.32 (7.32-7.42); ISTAT PO2 VEN 55 mmHg (20-40); ISTAT SAT O2 VEN 85 %; ISTAT TCO2 VEN 29 mmol/L (21-32)
[2020-12-26 05:33] LABS: CALCIUM 8.1 mg/dL (8.5-10.1); CREATININE 1.2 mg/dL (0.6-1.0); GFR 43.2; POTASSIUM 4.2 mmol/L (3.5-5.1)
[2020-12-26 05:38] LABS: PROTHROMBIN TIME PATIENT 26.3 SEC (11.7-14.0)
[2020-12-26 05:39] LABS: ALBUMIN/GLOBULIN RATIO 0.9 (1.0-1.7); MAGNESIUM 2.3 mg/dL (1.8-2.4); TOTAL BILIRUBIN 0.5 mg/dL (0.2-1.0); TOTAL PROTEIN 6.4 g/dL (6.4-8.2)
[2020-12-26] MEDS: IPRATRPIUM/ALBUTEROL 0.5/2.5MG 3 ML NEBU. NEB ONE (05:50)
--- NOTE | 2020-12-26 05:57 | EKG ---
[facility] [address] [place] [address] Test Date: 2020-12-26 Test Time: 04:36:08 Pat Name: MARGARITO SELF Department: Room: Gender: F Pharmaceutical Detailer: : 1940 Requested By: DAVID MUÑOZ Order Number: [id number] Reading MD: Measurements Intervals [place] Rate: 99 P: VT: QRS: -20 QRSD: 88 T: 27 QT: 384 QTc: 499 Interpretive Statements IRREGULAR RHYTHM, NO P-WAVE FOUND LEFTWARD AXIS R-S TRANSITION ZONE IN V LEADS DISPLACED TO THE LEFT T ABNORMALITY IN HIGH LATERAL LEADS PROLONGED QT ABNORMAL ECG RI6.02 No previous ECG available for comparison
[2020-12-26 06:50] LABS: BILIRUBIN,URINE SMALL (NEG); CLARITY,URINE CLEAR; COLOR,URINE AMBER; NITRITE,URINE NEGATIVE (NEG); PROTEIN,URINE 30 mg/dL (NEG-TRACE)
[2020-12-26 07:01] LABS: HYALINE CASTS, URINE OCCASIONAL /HPF
[2020-12-26 07:02] LABS: BACTERIA,URINE 0 /HPF (0-FEW); RBC,URINE 0 /HPF (0-2); WBC,URINE OCC /HPF (0-4)
[2020-12-26 07:06] VITALS: BP 158/73
[2020-12-26] MEDS: HEPARIN PF 500 UNIT/5 ML DISP.SYRIN. IVP ONE (07:35)
== END 2020-12-26 07:40 | disposition home or self-care (01) ==
LOC: ER 04:28
DX: R06.02 Shortness of breath (principal); J44.9 Chronic obstructive pulmonary disease, unspecified; I13.0 Hypertensive heart and chronic kidney disease with heart failure and stage 1 through stage 4 chronic kidney disease, or unspecified chronic kidney disease; N18.9 Chronic kidney disease, unspecified; I50.9 Heart failure, unspecified; Z87.891 Personal history of nicotine dependence; Z86.718 Personal history of other venous thrombosis and embolism; Z95.0 Presence of cardiac pacemaker
CPT/HCPCS: 36415; 71045; 80053; 81001; 82803; 83605; 83735; 83880; 84100; 84484; 85025; 85379; 85610; 87040; 93005; 94640; 96374; 99285; J1642

== ENCOUNTER → 2021-01-02 | Outpatient (CLI) | payer MEDICARE, BC ==
[2020-12-26 07:06] VITALS: BP 158/73
[2021-01-02 12:21] LABS: BASO # 0.1 x10^3/uL (0.0-0.2); BASO % 2 % (0-3); EOS # 0.2 x10^3/uL (0.0-0.7); EOS % 4 % (0-3); HEMATOCRIT 36.6 % (36.0-47.0); HEMOGLOBIN 11.8 g/dL (12.0-15.5); LYMPH # 0.6 x10^3/uL (1.0-4.8); LYMPH % 13 % (24-48); MEAN CORPUSCULAR HEMOGLOBIN 30 pg (25-35); MEAN CORPUSCULAR HGB CONC 32 g/dL (31-37); MEAN CORPUSCULAR VOLUME 93 fL (79-100); MONO # 0.5 x10^3/uL (0.0-1.1); MONO % 11 % (0-9); NEUT # 3.1 x10^3/uL (1.8-7.7); NEUT % 70 % (31-73); PLATELET COUNT 185 x10^3/uL (140-400); RED BLOOD COUNT 3.93 x10^6/uL (3.50-5.40); RED CELL DISTRIBUTION WIDTH 15.6 % (11.5-14.5); WHITE BLOOD COUNT 4.5 x10^3/uL (4.0-11.0)
[2021-01-02 12:27] LABS: CALCIUM 7.9 mg/dL (8.5-10.1); CREATININE 1.8 mg/dL (0.6-1.0); GFR 27.1; POTASSIUM 3.9 mmol/L (3.5-5.1)
[2021-01-02 12:33] LABS: ALBUMIN 2.9 g/dL (3.4-5.0); ALBUMIN/GLOBULIN RATIO 0.8 (1.0-1.7); TOTAL BILIRUBIN 0.6 mg/dL (0.2-1.0); TOTAL PROTEIN 6.6 g/dL (6.4-8.2)
== END ==
LOC: ONCLAB 11:53
PROVIDERS: ATTEND Internal Medicine Hematology & Oncology
DX: C34.11 Malignant neoplasm of upper lobe, right bronchus or lung (principal); E03.2 Hypothyroidism due to medicaments and other exogenous substances
CPT/HCPCS: 36415; 80053; 84443; 85025

== ENCOUNTER → 2021-01-09 | Outpatient (CLI) | payer MEDICARE, BC ==
[2020-12-26 07:06] VITALS: BP 158/73
[2021-01-09 08:35] LABS: BASO # 0.1 x10^3/uL (0.0-0.2); BASO % 1 % (0-3); EOS # 0.3 x10^3/uL (0.0-0.7); EOS % 5 % (0-3); HEMATOCRIT 35.1 % (36.0-47.0); HEMOGLOBIN 11.4 g/dL (12.0-15.5); LYMPH # 1.8 x10^3/uL (1.0-4.8); LYMPH % 28 % (24-48); MEAN CORPUSCULAR HEMOGLOBIN 30 pg (25-35); MEAN CORPUSCULAR HGB CONC 32 g/dL (31-37); MEAN CORPUSCULAR VOLUME 92 fL (79-100); MONO # 0.7 x10^3/uL (0.0-1.1); MONO % 11 % (0-9); NEUT # 3.7 x10^3/uL (1.8-7.7); NEUT % 56 % (31-73); PLATELET COUNT 263 x10^3/uL (140-400); RED BLOOD COUNT 3.82 x10^6/uL (3.50-5.40); RED CELL DISTRIBUTION WIDTH 15.2 % (11.5-14.5); WHITE BLOOD COUNT 6.6 x10^3/uL (4.0-11.0)
[2021-01-09 08:57] LABS: CALCIUM 8.1 mg/dL (8.5-10.1); CREATININE 1.4 mg/dL (0.6-1.0); GFR 36.2; POTASSIUM 3.9 mmol/L (3.5-5.1)
[2021-01-09 09:02] LABS: ALBUMIN/GLOBULIN RATIO 0.8 (1.0-1.7); TOTAL BILIRUBIN 0.3 mg/dL (0.2-1.0); TOTAL PROTEIN 6.7 g/dL (6.4-8.2)
== END ==
LOC: ONCLAB 08:13
PROVIDERS: ATTEND Internal Medicine Hematology & Oncology
DX: C34.11 Malignant neoplasm of upper lobe, right bronchus or lung (principal); E03.2 Hypothyroidism due to medicaments and other exogenous substances
CPT/HCPCS: 36415; 80053; 84443; 85025

== ENCOUNTER → 2021-01-14 | Outpatient (CLI) | payer MEDICARE, BC ==
[2020-12-26 07:06] VITALS: BP 158/73
[~2021-01-14] MED LIST changes: +GADOTERATE 5 MMOL/10ML VIAL. IVP ONE; +HEPARIN PF 500 UNIT/5 ML DISP.SYRIN. IVP ONE
--- NOTE | 2021-01-14 17:40 | RAD ---
MRI of the Brain without and with Contrast 01/14/2021 Clinical History: History of lung cancer. Recent falls. Technique: Unenhanced T1-weighted sagittal and axial and FLAIR, T2-weighted, gradient echo and diffus ion-weighted axial images of the brain were obtained. After the intravenous administration of 17 cc o f CLARISCAN, enhanced T1-weighted axial, sagittal and coronal images of the brain were obtained. Findings: There is generalized parenchymal atrophy. Patchy and several small focal areas of increased signal intensity are seen within the periventricular and subcortical white matter of both cerebral h emispheres on the FLAIR and T2-weighted images consistent with areas of mild small vessel ischemic di sease. 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 These measure 3 mm to 8 mm in size. No acute parenchymal abnormality is seen. There is no MRI evidence of acute ischemia/infarction. No e xtra-axial fluid collection is seen. No area of abnormal contrast enhancement is noted. Mild mucosal thickening is seen scattered throughout the paranasal sinuses. Mucus retention cysts are seen involving both maxillary sinuses which measure 5 mm to 1.2 cm in size. There is a small left ma stoid effusion. Normal flow voids are seen within the major vascular structures surrounding the brain parenchyma. IMPRESSION: No acute parenchymal abnormality is seen. There is no MRI evidence of metastatic disease involving the brain parenchyma. Electronically signed by: Gianfranco Gates MD (01/14/2021 5:38 PM) [place] [id number]
--- NOTE | 2021-01-14 17:50 | RAD ---
MRI of the lumbar spine without and with contrast 01/14/2021 CLINICAL HISTORY: Low back pain. History of lung cancer. TECHNIQUE: Unenhanced T1-weighted and T2-weighted sagittal and axial and inversion recovery sagittal images of the lumbar spine were obtained. After the intravenous administration of 17 cc of Clariscan, enhanced fat saturated T1-weighted sagittal and axial images of the lumbar spine were obtained. FINDINGS: Very mild S-shaped curvature of the thoracolumbar spine is seen. Degenerative signal change s are seen involving all the disks of the lumbar spine. Degenerative signal changes are seen within t he marrow surrounding these discs. Loss of height of the L4-5 and L5-S1 discs is noted. The conus med ullaris is within normal limits in morphology, position, and signal characteristics. No area of abnor mal contrast enhancement is seen. There is no MRI evidence of metastatic disease involving the lumbar vertebrae. At the L1-2 disc space there is a mild generalized disc bulge. Degenerative changes are seen involvin g the facet joints bilaterally. There are small facet joint effusions bilaterally. There is mild liga mentum flavum hypertrophy bilaterally. These findings do not result in significant central spinal can al or neural foraminal stenosis. At the L2-3 disc space there is a mild to moderate generalized disc bulge. This is eccentric to the l eft. Superimposed on this disc bulge is a left paracentral/lateral focal disc protrusion. This measur es 4 mm in AP diameter. Degenerative changes are seen involving the facet joints bilaterally. There i s moderate ligamentum flavum hypertrophy bilaterally. There are small facet joint effusions bilateral ly. These findings when combined do not result in significant central spinal canal stenosis. Mild lef t neural foraminal stenosis is seen. The right neural foramen is patent. At the L3-4 disc space there is a mild to moderate generalized disc bulge. This is eccentric to the l eft. Degenerative changes are seen involving the facet joints bilaterally. There is moderate ligament um flavum hypertrophy bilaterally. These findings when combined result in mild central spinal canal s tenosis. Mild left neural foraminal stenosis is seen. The right neural foramen is patent. At the L4-5 disc space there is a moderate generalized disc bulge. Degenerative changes are seen invo lving the facet joints bilaterally. There is moderate ligamentum flavum hypertrophy bilaterally. Find ings when combined result in moderate central spinal canal stenosis. Mild to moderate right greater t marx left neural foraminal stenosis is seen. At the L5-S1 disc space there is a mild to moderate generalized disc bulge. This is eccentric to the left. Degenerative changes are seen involving the facet joints bilaterally. These findings do not res ult in significant central spinal canal stenosis. Mild to moderate left greater than right neural for aminal stenosis is seen. IMPRESSION: 1. . There is no MRI evidence of metastatic disease involving the lumbar spine. 2. The changes of degenerative disc disease are seen throughout the lumbar spine. These findings resu lt in mild central spinal canal stenosis at L3-4 and moderate central spinal canal stenosis at L4-5. Mild left neural foraminal stenosis is seen at L2-3 and L3-4. Mild to moderate right greater than lef t neural foraminal stenosis is seen at L4-5. Mild to moderate left greater than right neural foramina l stenosis is seen at L5-S1. Electronically signed by: Gianfranco Gates MD (01/14/2021 5:47 PM) [id number]
== END ==
LOC: MRI 15:42
PROVIDERS: ATTEND Internal Medicine Hematology & Oncology
DX: C34.11 Malignant neoplasm of upper lobe, right bronchus or lung (principal); J34.1 Cyst and mucocele of nose and nasal sinus; M51.36 Other intervertebral disc degeneration, lumbar region; M48.07 Spinal stenosis, lumbosacral region
CPT/HCPCS: 70553; 72158; A9575; J1642

== ENCOUNTER → 2021-01-23 | Outpatient (CLI) | payer MEDICARE, BC ==
[2020-12-26 07:06] VITALS: BP 158/73
[~2021-01-23] MED LIST changes: -GADOTERATE 5 MMOL/10ML VIAL. IVP ONE; -HEPARIN PF 500 UNIT/5 ML DISP.SYRIN. IVP ONE
[2021-01-23 13:09] LABS: BASO # 0.1 x10^3/uL (0.0-0.2); BASO % 1 % (0-3); EOS # 0.3 x10^3/uL (0.0-0.7); EOS % 4 % (0-3); HEMATOCRIT 34.6 % (36.0-47.0); HEMOGLOBIN 11.2 g/dL (12.0-15.5); LYMPH # 1.5 x10^3/uL (1.0-4.8); LYMPH % 23 % (24-48); MEAN CORPUSCULAR HEMOGLOBIN 29 pg (25-35); MEAN CORPUSCULAR HGB CONC 33 g/dL (31-37); MEAN CORPUSCULAR VOLUME 91 fL (79-100); MONO # 0.6 x10^3/uL (0.0-1.1); MONO % 9 % (0-9); NEUT # 4.2 x10^3/uL (1.8-7.7); NEUT % 64 % (31-73); PLATELET COUNT 227 x10^3/uL (140-400); RED BLOOD COUNT 3.82 x10^6/uL (3.50-5.40); RED CELL DISTRIBUTION WIDTH 16.1 % (11.5-14.5); WHITE BLOOD COUNT 6.7 x10^3/uL (4.0-11.0)
[2021-01-23 13:28] LABS: CALCIUM 8.2 mg/dL (8.5-10.1); CREATININE 1.3 mg/dL (0.6-1.0); GFR 39.4; POTASSIUM 3.5 mmol/L (3.5-5.1)
[2021-01-23 13:33] LABS: ALBUMIN 2.9 g/dL (3.4-5.0); ALBUMIN/GLOBULIN RATIO 0.8 (1.0-1.7); TOTAL BILIRUBIN 0.5 mg/dL (0.2-1.0); TOTAL PROTEIN 6.7 g/dL (6.4-8.2)
== END ==
LOC: ONCLAB 12:36
PROVIDERS: ATTEND Physician Assistant
DX: C34.11 Malignant neoplasm of upper lobe, right bronchus or lung (principal); E03.2 Hypothyroidism due to medicaments and other exogenous substances; T50.995A Adverse effect of other drugs, medicaments and biological substances, initial encounter; Y92.9 Unspecified place or not applicable
CPT/HCPCS: 36415; 80053; 84443; 85025

== ENCOUNTER → 2021-02-06 | Outpatient (CLI) | payer MEDICARE, BC ==
[2021-02-06 09:25] LABS: BASO # 0.1 x10^3/uL (0.0-0.2); BASO % 1 % (0-3); EOS # 0.4 x10^3/uL (0.0-0.7); EOS % 5 % (0-3); HEMATOCRIT 35.6 % (36.0-47.0); HEMOGLOBIN 11.4 g/dL (12.0-15.5); LYMPH # 1.4 x10^3/uL (1.0-4.8); LYMPH % 18 % (24-48); MEAN CORPUSCULAR HEMOGLOBIN 29 pg (25-35); MEAN CORPUSCULAR HGB CONC 32 g/dL (31-37); MEAN CORPUSCULAR VOLUME 91 fL (79-100); MONO # 0.7 x10^3/uL (0.0-1.1); MONO % 8 % (0-9); NEUT # 5.3 x10^3/uL (1.8-7.7); NEUT % 68 % (31-73); PLATELET COUNT 296 x10^3/uL (140-400); RED BLOOD COUNT 3.92 x10^6/uL (3.50-5.40); RED CELL DISTRIBUTION WIDTH 16.4 % (11.5-14.5); WHITE BLOOD COUNT 7.9 x10^3/uL (4.0-11.0)
[2021-02-06 09:34] LABS: CALCIUM 8.5 mg/dL (8.5-10.1); CREATININE 1.2 mg/dL (0.6-1.0); GFR 43.2; POTASSIUM 3.9 mmol/L (3.5-5.1)
[2021-02-06 09:39] LABS: ALBUMIN 3.3 g/dL (3.4-5.0); ALBUMIN/GLOBULIN RATIO 0.9 (1.0-1.7); TOTAL BILIRUBIN 0.4 mg/dL (0.2-1.0); TOTAL PROTEIN 7.1 g/dL (6.4-8.2)
== END ==
LOC: ONCLAB 08:47
PROVIDERS: ATTEND Physician Assistant
DX: C34.11 Malignant neoplasm of upper lobe, right bronchus or lung (principal); E03.2 Hypothyroidism due to medicaments and other exogenous substances
CPT/HCPCS: 36415; 80053; 84443; 85025

== ENCOUNTER → 2021-02-14 | Outpatient (CLI) | payer MEDICARE, BC ==
--- NOTE | 2021-02-14 11:49 | RAD ---
EXAM: Dual modality PET-CT Scan DATE: 02/14/2021 RADIOPHARMACEUTICAL: 15 mCi F-18 fluorodeoxyglucose (FDG) IV. CLINICAL HISTORY: Lung cancer restaging. COMPARISON: 11/08/2020. TECHNIQUE: Approximately 45 minutes after tracer administration, routine, attenuation-corrected Posit nilda Emission Tomography (PET) images were obtained from the level of the base of the skull through th e level of the mid thighs. Tomographic reconstructions are reviewed in coronal, transaxial and sagitt al planes. Non-contrast CT imaging was performed for attenuation correction and localization purpose s only. These images do not constitute a diagnostic-quality CT examination and were not used to diag nose disease independently of the PET images. The blood glucose level was 103 mg/dL at the time of FDG administration. *One or more of the following individualized dose reduction techniques were utilized for this examina tion: 1. Automated exposure control. 2. Adjustment of the mA and/or kV according to patient size. 3. Use of iterative reconstruction technique. FINDINGS: There has been interval decrease in the degree of tracer activity associated with a mass or masslike consolidation with spiculated margins and architectural distortion within the lateral right lung apex measuring approximately 3.7 cm with a maximum SUV of 2.6. This previously demonstrated an SUV of 3.1. There is mild increased tracer activity within maximum SUV of 2.4 within prominent right paratracheal and precarinal lymph nodes, stable to slightly decreased compared to the prior exam. The re is mild tracer activity within maximum SUV of 2.4 within a 1.4 cm left lower lobe pulmonary nodule . There is minimal retained tracer activity within maximum SUV of 1.5 within a 9 mm right lower lobe pulmonary nodule, both of which are slightly more conspicuous compared to the prior study. There is m ild residual activity with a maximum SUV of 2.2 within a sclerotic lesion within the left ischium. Th ere are additional small osseous sclerotic lesions which are likely too small to characterize with PE T due to background osseous activity. The CT portion of the exam demonstrates masslike consolidation with spiculated margins and adjacent a rchitectural distortion within the lateral right lung apex measuring approximately 3.7 cm transaxiall y. This is not a partially changed when allowing for differences in measurement technique and volume averaging. There is also a stable 1.1 cm spiculated nodule within the left lung apex. There is a 9 mm nodule within the right lower thorax which is new or obscured on the prior exam due to loculated ple ural fluid. There is a 1.4 cm nodule within the medial left lower lobe, increased compared to a measu rement of 1.1 cm on the prior exam. There is patchy groundglass opacity within both lungs, predominan tly within the posterior right upper lobe. This is similar compared to the prior study and superimpos ed on emphysema and chronic appearing interstitial changes. There has been interval decrease in a sma ll layering left pleural effusion. There is also been decrease in a previously demonstrated loculated right pleural effusion. This is now small. There is cardiomegaly. There is a cardiac pacemaker. There is aortic and coronary artery atherosclero sis. There is a stable enlarged right paratracheal lymph node measuring 1.3 cm. There are additional enlarged right paratracheal and precarinal lymph nodes, also stable in appearance. There is a right c hest wall port catheter in expected position. There are metastatic changes. No hepatic lesion is seen. There is cholelithiasis. The pancreas, spleen, adrenal glands and kidneys are unremarkable. No abnormally thickened or dilated loop of bowel is seen. The bladder is nearly emp ty. The uterus is absent. There is an ectatic infrarenal abdominal aorta measuring 2.5 cm. There is h eavily calcified vascular plaque within the aorta and aortic branch vessels. The visualized portions of the brain are unremarkable. There is no neck lymphadenopathy. There is deg enerative change throughout the spine. There is no acute osseous finding. There are few suspected sta ble small sclerotic lesions due to bone islands. There has been interval increase in a superimposed s clerotic lesion within the left ischium measuring 1.2 cm. There are stable similar-appearing scleroti c lesions within the bilateral sacrum and left iliac bone and inferior right iliac bone. IMPRESSION: 1. Slight interval decrease in the degree of radiotracer activity associated with a mass or masslike consolidation within the lateral right lung apex, demonstrating an SUV of 2.6 compared to a prior bibiana surement of 3.1. This favors interval therapy response. 2. Slight interval decrease in the degree of radiotracer activity associated with a right paratrachea l and precarinal lymph nodes, unchanged in size compared to the prior study. 3. Small bilateral lower lobe pulmonary nodules, the left of which measures 1.4 cm and is slightly in creased compared to the prior study and the right of which measures 9 mm and may be obscured on the p rior exam. These demonstrate mild indeterminant radiotracer activity with SUVs of 2.4 and 1.5, respec tively. Attention at the time of follow-up is recommended. 4. Multiple sclerotic lesions within the bony pelvis, one of which in the left ischium appears slight ly larger compared to the prior exam. This demonstrates mild retained tracer activity within SUV of 2 .2. The possibility of mixed interval therapy response with slight progression of osseous metastatic disease is not excluded. These may also be treated metastases. Electronically signed by: Sharmin Polanco MD (02/14/2021 11:47 AM) [id number]
== END ==
LOC: PETSC 08:09
PROVIDERS: ATTEND Physician Assistant
DX: C34.11 Malignant neoplasm of upper lobe, right bronchus or lung (principal); K80.20 Calculus of gallbladder without cholecystitis without obstruction; I77.811 Abdominal aortic ectasia; R91.1 Solitary pulmonary nodule; I25.10 Atherosclerotic heart disease of native coronary artery without angina pectoris; I70.0 Atherosclerosis of aorta; I51.7 Cardiomegaly
CPT/HCPCS: 78815; A9552

== ENCOUNTER → 2021-02-20 | Outpatient (CLI) | payer MEDICARE, BC ==
[2021-02-20 09:26] LABS: BASO # 0.1 x10^3/uL (0.0-0.2); BASO % 1 % (0-3); EOS # 0.5 x10^3/uL (0.0-0.7); EOS % 7 % (0-3); HEMATOCRIT 35.6 % (36.0-47.0); HEMOGLOBIN 11.5 g/dL (12.0-15.5); LYMPH # 1.3 x10^3/uL (1.0-4.8); LYMPH % 18 % (24-48); MEAN CORPUSCULAR HEMOGLOBIN 29 pg (25-35); MEAN CORPUSCULAR HGB CONC 32 g/dL (31-37); MEAN CORPUSCULAR VOLUME 91 fL (79-100); MONO # 0.7 x10^3/uL (0.0-1.1); MONO % 10 % (0-9); NEUT # 4.5 x10^3/uL (1.8-7.7); NEUT % 64 % (31-73); PLATELET COUNT 255 x10^3/uL (140-400); RED BLOOD COUNT 3.91 x10^6/uL (3.50-5.40); RED CELL DISTRIBUTION WIDTH 16.7 % (11.5-14.5); WHITE BLOOD COUNT 7.1 x10^3/uL (4.0-11.0)
[2021-02-20 09:30] LABS: CALCIUM 8.2 mg/dL (8.5-10.1); CREATININE 1.5 mg/dL (0.6-1.0); GFR 33.4; POTASSIUM 3.6 mmol/L (3.5-5.1)
[2021-02-20 09:36] LABS: ALBUMIN 3.3 g/dL (3.4-5.0); ALBUMIN/GLOBULIN RATIO 0.9 (1.0-1.7); TOTAL BILIRUBIN 0.6 mg/dL (0.2-1.0); TOTAL PROTEIN 6.8 g/dL (6.4-8.2)
[2021-02-20 10:07] LABS: FREE T4 0.96 ng/dL (0.76-1.46); THYROID STIM HORMONE (TSH) 2.456 uIU/mL (0.358-3.74)
== END ==
LOC: ONCLAB 09:02
PROVIDERS: ATTEND Physician Assistant
DX: C34.11 Malignant neoplasm of upper lobe, right bronchus or lung (principal); E03.2 Hypothyroidism due to medicaments and other exogenous substances
CPT/HCPCS: 36415; 80053; 83615; 83735; 84439; 84443; 85025

== ENCOUNTER → 2021-03-06 | Outpatient (CLI) | payer MEDICARE, BC ==
[2021-03-06 09:41] LABS: BASO # 0.1 x10^3/uL (0.0-0.2); BASO % 1 % (0-3); EOS # 0.4 x10^3/uL (0.0-0.7); EOS % 6 % (0-3); HEMATOCRIT 35.2 % (36.0-47.0); HEMOGLOBIN 11.4 g/dL (12.0-15.5); LYMPH # 1.3 x10^3/uL (1.0-4.8); LYMPH % 19 % (24-48); MEAN CORPUSCULAR HEMOGLOBIN 29 pg (25-35); MEAN CORPUSCULAR HGB CONC 32 g/dL (31-37); MEAN CORPUSCULAR VOLUME 91 fL (79-100); MONO # 0.6 x10^3/uL (0.0-1.1); MONO % 9 % (0-9); NEUT # 4.3 x10^3/uL (1.8-7.7); NEUT % 65 % (31-73); PLATELET COUNT 250 x10^3/uL (140-400); RED BLOOD COUNT 3.88 x10^6/uL (3.50-5.40); RED CELL DISTRIBUTION WIDTH 16.5 % (11.5-14.5); WHITE BLOOD COUNT 6.7 x10^3/uL (4.0-11.0)
[2021-03-06 10:11] LABS: CALCIUM 8.5 mg/dL (8.5-10.1); CREATININE 1.3 mg/dL (0.6-1.0); GFR 39.4; POTASSIUM 3.8 mmol/L (3.5-5.1)
[2021-03-06 10:15] LABS: ALBUMIN 3.2 g/dL (3.4-5.0); ALBUMIN/GLOBULIN RATIO 0.9 (1.0-1.7); TOTAL BILIRUBIN 0.6 mg/dL (0.2-1.0); TOTAL PROTEIN 6.9 g/dL (6.4-8.2)
== END ==
LOC: ONCLAB 09:17
PROVIDERS: ATTEND Internal Medicine Hematology & Oncology
DX: C50.212 Malignant neoplasm of upper-inner quadrant of left female breast (principal); E03.2 Hypothyroidism due to medicaments and other exogenous substances
CPT/HCPCS: 36415; 80053; 84443; 85025

== ENCOUNTER → 2021-03-19 | Outpatient (CLI) | payer MEDICARE, BC ==
[2021-03-19 12:02] LABS: BASO # 0.1 x10^3/uL (0.0-0.2); BASO % 1 % (0-3); EOS # 0.1 x10^3/uL (0.0-0.7); EOS % 1 % (0-3); HEMATOCRIT 36.3 % (36.0-47.0); HEMOGLOBIN 11.7 g/dL (12.0-15.5); LYMPH # 0.9 x10^3/uL (1.0-4.8); LYMPH % 10 % (24-48); MEAN CORPUSCULAR HEMOGLOBIN 30 pg (25-35); MEAN CORPUSCULAR HGB CONC 32 g/dL (31-37); MEAN CORPUSCULAR VOLUME 91 fL (79-100); MONO # 0.4 x10^3/uL (0.0-1.1); MONO % 5 % (0-9); NEUT # 7.2 x10^3/uL (1.8-7.7); NEUT % 84 % (31-73); PLATELET COUNT 279 x10^3/uL (140-400); RED BLOOD COUNT 3.99 x10^6/uL (3.50-5.40); RED CELL DISTRIBUTION WIDTH 17.2 % (11.5-14.5); WHITE BLOOD COUNT 8.7 x10^3/uL (4.0-11.0)
[2021-03-19 12:14] LABS: CALCIUM 8.7 mg/dL (8.5-10.1); CREATININE 1.3 mg/dL (0.6-1.0); GFR 39.4
[2021-03-19 12:22] LABS: ALBUMIN 3.4 g/dL (3.4-5.0); ALBUMIN/GLOBULIN RATIO 0.9 (1.0-1.7); TOTAL BILIRUBIN 0.6 mg/dL (0.2-1.0)
== END ==
LOC: ONCLAB 11:44
PROVIDERS: ATTEND Internal Medicine Hematology & Oncology
DX: C34.11 Malignant neoplasm of upper lobe, right bronchus or lung (principal)
CPT/HCPCS: 36415; 80053; 85025

== ENCOUNTER → 2021-04-03 | Outpatient (CLI) | payer MEDICARE, BC ==
--- NOTE | 2021-04-03 13:15 | RAD ---
Examination: Ultrasound right upper extremity venous duplex HISTORY: History of right arm swelling, pain, erythema COMPARISON: None available TECHNIQUE: Grayscale, color Doppler 2-D, spectral waveform analysis of the right upper extremity veno us system. FINDINGS: The right internal jugular vein, subclavian vein, cephalic vein, brachial vein, axillary vein, basili c vein, radial, and ulnar veins are patent. IMPRESSION: 1. No evidence of deep vein thrombosis right upper extremity venous system. Electronically signed by: Imtiaz Verduzco MD (04/03/2021 1:13 PM) [id number]
== END ==
LOC: US 11:37
PROVIDERS: ATTEND Internal Medicine Hematology & Oncology
DX: C50.212 Malignant neoplasm of upper-inner quadrant of left female breast (principal); R22.31 Localized swelling, mass and lump, right upper limb
CPT/HCPCS: 93971

== ENCOUNTER → 2021-04-03 | Outpatient (CLI) | payer MEDICARE, BC ==
[2021-04-03 09:38] LABS: CALCIUM 7.9 mg/dL (8.5-10.1); CREATININE 1.4 mg/dL (0.6-1.0); GFR 36.1; POTASSIUM 3.8 mmol/L (3.5-5.1)
[2021-04-03 09:43] LABS: ALBUMIN 3.1 g/dL (3.4-5.0); ALBUMIN/GLOBULIN RATIO 0.9 (1.0-1.7); TOTAL BILIRUBIN 0.7 mg/dL (0.2-1.0); TOTAL PROTEIN 6.6 g/dL (6.4-8.2)
[2021-04-03 11:33] LABS: BASO % 1 % (0-3); EOS # 1.1 x10^3/uL (0.0-0.7); EOS % 14 % (0-3); HEMATOCRIT 36.6 % (36.0-47.0); HEMOGLOBIN 12.1 g/dL (12.0-15.5); LYMPH # 1.1 x10^3/uL (1.0-4.8); LYMPH % 14 % (24-48); MEAN CORPUSCULAR HEMOGLOBIN 30 pg (25-35); MEAN CORPUSCULAR HGB CONC 33 g/dL (31-37); MEAN CORPUSCULAR VOLUME 91 fL (79-100); MONO # 0.8 x10^3/uL (0.0-1.1); MONO % 9 % (0-9); NEUT # 5.1 x10^3/uL (1.8-7.7); NEUT % 63 % (31-73); PLATELET COUNT 249 x10^3/uL (140-400); RED BLOOD COUNT 4.03 x10^6/uL (3.50-5.40); RED CELL DISTRIBUTION WIDTH 16.4 % (11.5-14.5); WHITE BLOOD COUNT 8.1 x10^3/uL (4.0-11.0)
[2021-04-03 12:11] LABS: % BASOS 1 % (0-3); % EOS 11 % (0-5); % LYMPHS 22 % (24-48); % MONOS 7 % (0-10); % SEGS 59 % (35-66); PLT ESTIMATE ADEQUATE (ADEQUATE); POLYCHROMASIA SLIGHT
[2021-04-03 12:12] LABS: OVALOCYTES FEW
== END ==
LOC: ONCLAB 08:43
PROVIDERS: ATTEND Physician Assistant
DX: C50.212 Malignant neoplasm of upper-inner quadrant of left female breast (principal); E03.2 Hypothyroidism due to medicaments and other exogenous substances
CPT/HCPCS: 36415; 80053; 84443; 85007; 85025

== ENCOUNTER → 2021-04-07 | Outpatient (CLI) | payer MEDICARE, BC ==
[2021-04-07 08:32] LABS: ALBUMIN 3.1 g/dL (3.4-5.0); ALBUMIN/GLOBULIN RATIO 0.8 (1.0-1.7); CALCIUM 8.2 mg/dL (8.5-10.1); CREATININE 1.3 mg/dL (0.6-1.0); GFR 39.3; POTASSIUM 3.8 mmol/L (3.5-5.1); TOTAL BILIRUBIN 0.4 mg/dL (0.2-1.0); TOTAL PROTEIN 6.9 g/dL (6.4-8.2)
--- NOTE | 2021-04-07 10:25 | CARD ---
MR#: [id number] Date of Study: 04/07/2021 Ordering Physician: BYRON TAVERA, Referring Physician: BYRON TAVERA, Tech: Tian Allen [facility] APPROVED REPORT EXAM: Two-dimensional and M-mode echocardiogram with Doppler and color Doppler. Other Information Quality : AverageHR: 90bpm Rhythm : Atrial FibrillationTechnically limited study due to body habitus. INDICATION Atrial Fibrillation RISK FACTORS Smoking 2D DIMENSIONS Left Atrium(2D)4.3 (1.6-4.0cm)IVSd1.0 (0.7-1.1cm) Aortic Root(2D)2.7 (2.0-3.7cm)LVDd4.6 (3.9-5.9cm) LVOT Diameter2.0 (1.8-2.4cm)PWd1.0 (0.7-1.1cm) LVDs3.9 (2.5-4.0cm)FS (%) 15.6 % SV32.2 mlLVEF(%)33.0 (>50%) Aortic Valve AoV Peak Silvio.112.5cm/sAoV VTI24.7cm AO Peak GR.5.1mmHgLVOT Peak Silvio.62.6cm/s AO Mean GR.3mmHgAVA (VMAX)1.72cm2 Mitral Valve MV E Izlvuvsw944.1cm/sMV E Peak Gr.8mmHg MV DECEL YAJU641enLO A Fbniqxez05.4cm/s MV E Mean Gr.3mmHgE/A Ratio2.8 Pulmonary Valve PV Peak Zijjfsqt35.1cm/s Tricuspid Valve TR P. Thvdhkvy107od/sTR Peak Gr.50mmHg Pulmonary Vein S1 Gjxbcqsf81.7cm/sD2 Uswkdaod12.7cm/s LEFT VENTRICLE The left ventricle is normal size. There is normal left ventricular wall thickness. The systolic func tion is moderately to severely impaired. EF 30% There is severe global hypokinesis. Septal motion sug gestive of conduction defect. Tissue Doppler imaging reveals moderate left ventricular diastolic dysf unction. RIGHT VENTRICLE The right ventricle is normal size. There is normal right ventricular wall thickness. The right ventr icular systolic function is normal. ATRIA The left atrium is moderately dilated. The right atrium size is normal. The interatrial septum is int act with no evidence for an atrial septal defect or patent foramen ovale as noted on 2-D or Doppler i maging. AORTIC VALVE The aortic valve is normal in structure and function. Doppler and Color Flow revealed no significant aortic regurgitation. There is no significant aortic valvular stenosis. There is no aortic valvular v egetation. MITRAL VALVE The mitral valve is normal in structure and function. There is no evidence of mitral valve prolapse. There is no mitral valve stenosis. Doppler and Color-flow revealed mild mitral regurgitation. TRICUSPID VALVE The tricuspid valve is normal in structure and function. Doppler and Color Flow revealed trace to mil d tricuspid regurgitation. There is no tricuspid valve prolapse or vegetation. There is no tricuspid valve stenosis. PULMONIC VALVE Doppler and Color Flow revealed no pulmonic valvular regurgitation. There is no pulmonic valvular joel nosis. GREAT VESSELS The aortic root is normal in size. The IVC is normal in size and collapses >50% with inspiration. PERICARDIAL EFFUSION There is no pleural effusion. There is no evidence of significant pericardial effusion. Critical Notification Critical Value: No <Conclusion> The systolic function is moderately to severely impaired. EF 30% There is severe global hypokinesis. Septal motion suggestive of conduction defect. Signed by : Byron Tavera, Electronically Approved : 04/07/2021 10:24:23
== END ==
LOC: ECHO 07:32
PROVIDERS: ATTEND Internal Medicine Cardiovascular Disease
DX: I36.1 Nonrheumatic tricuspid (valve) insufficiency (principal); I48.0 Paroxysmal atrial fibrillation
CPT/HCPCS: 36415; 80053; 83880; 93306

== ENCOUNTER → 2021-04-10 | Outpatient (CLI) | payer MEDICARE, BC ==
[2021-04-10 12:25] LABS: BASO # 0.1 x10^3/uL (0.0-0.2); BASO % 1 % (0-3); EOS # 1.2 x10^3/uL (0.0-0.7); EOS % 14 % (0-3); HEMATOCRIT 36.3 % (36.0-47.0); HEMOGLOBIN 11.6 g/dL (12.0-15.5); LYMPH # 1.2 x10^3/uL (1.0-4.8); LYMPH % 13 % (24-48); MEAN CORPUSCULAR HEMOGLOBIN 29 pg (25-35); MEAN CORPUSCULAR HGB CONC 32 g/dL (31-37); MEAN CORPUSCULAR VOLUME 91 fL (79-100); MONO # 0.9 x10^3/uL (0.0-1.1); MONO % 10 % (0-9); NEUT # 5.5 x10^3/uL (1.8-7.7); NEUT % 62 % (31-73); PLATELET COUNT 293 x10^3/uL (140-400); RED BLOOD COUNT 3.99 x10^6/uL (3.50-5.40); RED CELL DISTRIBUTION WIDTH 16.2 % (11.5-14.5)
[2021-04-10 12:27] LABS: CALCIUM 8.3 mg/dL (8.5-10.1); CREATININE 1.3 mg/dL (0.6-1.0); GFR 39.3
[2021-04-10 12:30] LABS: WHITE BLOOD COUNT 8.9 x10^3/uL (4.0-11.0)
[2021-04-10 12:32] LABS: ALBUMIN/GLOBULIN RATIO 0.8 (1.0-1.7); TOTAL BILIRUBIN 0.5 mg/dL (0.2-1.0); TOTAL PROTEIN 6.9 g/dL (6.4-8.2)
[2021-04-10 14:28] LABS: % EOS 13 % (0-5); % LYMPHS 16 % (24-48); % MONOS 4 % (0-10); % SEGS 67 % (35-66)
[2021-04-10 14:29] LABS: PLT ESTIMATE ADEQUATE (ADEQUATE)
== END ==
LOC: ONCLAB 09:04
PROVIDERS: ATTEND Internal Medicine Hematology & Oncology
DX: C34.11 Malignant neoplasm of upper lobe, right bronchus or lung (principal); E03.2 Hypothyroidism due to medicaments and other exogenous substances
CPT/HCPCS: 36415; 80053; 84443; 85007; 85025

== ENCOUNTER → 2021-04-24 | Outpatient (CLI) | payer MEDICARE, BC ==
[2021-04-24 11:23] LABS: CALCIUM 8.3 mg/dL (8.5-10.1); CREATININE 1.2 mg/dL (0.6-1.0); GFR 43.1; POTASSIUM 3.7 mmol/L (3.5-5.1)
[2021-04-24 11:25] LABS: BASO # 0.1 x10^3/uL (0.0-0.2); BASO % 1 % (0-3); EOS # 1.9 x10^3/uL (0.0-0.7); EOS % 18 % (0-3); HEMATOCRIT 35.6 % (36.0-47.0); HEMOGLOBIN 11.8 g/dL (12.0-15.5); LYMPH # 0.8 x10^3/uL (1.0-4.8); LYMPH % 8 % (24-48); MEAN CORPUSCULAR HEMOGLOBIN 30 pg (25-35); MEAN CORPUSCULAR HGB CONC 33 g/dL (31-37); MEAN CORPUSCULAR VOLUME 89 fL (79-100); MONO % 10 % (0-9); NEUT # 6.5 x10^3/uL (1.8-7.7); NEUT % 64 % (31-73); PLATELET COUNT 381 x10^3/uL (140-400); RED BLOOD COUNT 4.01 x10^6/uL (3.50-5.40); RED CELL DISTRIBUTION WIDTH 15.7 % (11.5-14.5); WHITE BLOOD COUNT 10.2 x10^3/uL (4.0-11.0)
[2021-04-24 11:30] LABS: ALBUMIN 2.7 g/dL (3.4-5.0); ALBUMIN/GLOBULIN RATIO 0.6 (1.0-1.7); TOTAL BILIRUBIN 0.6 mg/dL (0.2-1.0); TOTAL PROTEIN 7.1 g/dL (6.4-8.2)
[2021-04-24 12:32] LABS: % BANDS 1 % (0-9); % EOS 23 % (0-5); % LYMPHS 11 % (24-48); % MONOS 9 % (0-10); % SEGS 56 % (35-66); PLT ESTIMATE ADEQUATE (ADEQUATE)
== END ==
LOC: ONCLAB 10:33
PROVIDERS: ATTEND Internal Medicine Hematology & Oncology
DX: C34.11 Malignant neoplasm of upper lobe, right bronchus or lung (principal)
CPT/HCPCS: 36415; 80053; 85007; 85025

== ENCOUNTER → 2021-05-05 | Outpatient (CLI) | payer MEDICARE, BC ==
[2021-05-05 14:56] LABS: BASO % 0 % (0-3); EOS # 2.6 x10^3/uL (0.0-0.7); EOS % 25 % (0-3); HEMATOCRIT 36.7 % (36.0-47.0); HEMOGLOBIN 11.9 g/dL (12.0-15.5); LYMPH # 1.2 x10^3/uL (1.0-4.8); LYMPH % 12 % (24-48); MEAN CORPUSCULAR HEMOGLOBIN 29 pg (25-35); MEAN CORPUSCULAR HGB CONC 32 g/dL (31-37); MEAN CORPUSCULAR VOLUME 89 fL (79-100); MONO # 0.9 x10^3/uL (0.0-1.1); MONO % 8 % (0-9); NEUT # 5.9 x10^3/uL (1.8-7.7); NEUT % 55 % (31-73); PLATELET COUNT 371 x10^3/uL (140-400); RED BLOOD COUNT 4.14 x10^6/uL (3.50-5.40); RED CELL DISTRIBUTION WIDTH 15.8 % (11.5-14.5); WHITE BLOOD COUNT 10.7 x10^3/uL (4.0-11.0)
[2021-05-05 15:09] LABS: CALCIUM 8.6 mg/dL (8.5-10.1); CREATININE 1.4 mg/dL (0.6-1.0); GFR 36.1; POTASSIUM 3.7 mmol/L (3.5-5.1)
[2021-05-05 15:15] LABS: ALBUMIN 2.5 g/dL (3.4-5.0); ALBUMIN/GLOBULIN RATIO 0.6 (1.0-1.7); TOTAL BILIRUBIN 0.4 mg/dL (0.2-1.0); TOTAL PROTEIN 6.7 g/dL (6.4-8.2)
[2021-05-05 15:46] LABS: % BANDS 2 % (0-9); % EOS 24 % (0-5); % LYMPHS 9 % (24-48); % MONOS 13 % (0-10); % SEGS 52 % (35-66); PLT ESTIMATE ADEQUATE (ADEQUATE)
[2021-05-05 15:49] LABS: ANISOCYTOSIS SLIGHT; OVALOCYTES FEW; POIKILOCYTOSIS SLIGHT
== END ==
LOC: ONCLAB 14:03
PROVIDERS: ATTEND Internal Medicine Hematology & Oncology
DX: C50.212 Malignant neoplasm of upper-inner quadrant of left female breast (principal)
CPT/HCPCS: 36415; 80053; 85007; 85025

== ENCOUNTER → 2021-05-08 | Outpatient (CLI) | payer MEDICARE, BC ==
[2021-05-08 10:18] LABS: CALCIUM 9.6 mg/dL (8.5-10.1); CREATININE 1.7 mg/dL (0.6-1.0); GFR 28.8; POTASSIUM 4.3 mmol/L (3.5-5.1)
[2021-05-08 10:22] LABS: BASO % 0 % (0-3); EOS % 0 % (0-3); HEMATOCRIT 33.4 % (36.0-47.0); HEMOGLOBIN 10.8 g/dL (12.0-15.5); LYMPH # 0.8 x10^3/uL (1.0-4.8); LYMPH % 8 % (24-48); MEAN CORPUSCULAR HEMOGLOBIN 29 pg (25-35); MEAN CORPUSCULAR HGB CONC 32 g/dL (31-37); MEAN CORPUSCULAR VOLUME 89 fL (79-100); MONO # 0.5 x10^3/uL (0.0-1.1); MONO % 4 % (0-9); NEUT # 9.7 x10^3/uL (1.8-7.7); NEUT % 88 % (31-73); PLATELET COUNT 326 x10^3/uL (140-400); RED BLOOD COUNT 3.76 x10^6/uL (3.50-5.40)
[2021-05-08 10:25] LABS: ALBUMIN 2.7 g/dL (3.4-5.0); ALBUMIN/GLOBULIN RATIO 0.6 (1.0-1.7); TOTAL BILIRUBIN 0.2 mg/dL (0.2-1.0); TOTAL PROTEIN 6.9 g/dL (6.4-8.2)
[2021-05-08 12:59] LABS: % LYMPHS 6 % (24-48); % MONOS 1 % (0-10); % SEGS 93 % (35-66); PLT ESTIMATE ADEQUATE (ADEQUATE)
== END ==
LOC: ONCLAB 09:19
PROVIDERS: ATTEND Internal Medicine Hematology & Oncology
DX: C50.212 Malignant neoplasm of upper-inner quadrant of left female breast (principal); C34.11 Malignant neoplasm of upper lobe, right bronchus or lung
CPT/HCPCS: 36415; 80053; 85007; 85025

== ENCOUNTER → 2021-05-09 | Outpatient (CLI) | payer MEDICARE, BC ==
--- NOTE | 2021-05-12 11:38 | RAD ---
FDG PET/CT SKULL BASE TO UPPER THIGHS Clinical Indication: Restaging left breast cancer, bone metastases. Comparison: FDG PET/CT, skull base to upper thighs for 2020. Technique: Patient blood glucose at the time of injection is 167 mg/dL. The patient was administered 14.2 mCi of F-18 FDG intravenously. The patient rested quietly during a 60 minute uptake period. Then PET imaging from the skull base to the upper thighs was performed. A noncontrast CT was acquired ove r this same area. The CT is for attenuation correction and anatomic localization, it is not of diagno stic quality and is not intended to diagnose disease independently of the PET. PQRS Compliance Statement: One or more of the following individualized dose reduction techniques were utilized for this examinat ion: 1. Automated exposure control 2. Adjustment of the mA and/or kV according to patient size 3. Use of iterative reconstruction technique Findings: Head and neck: There is no evidence of FDG-avid disease. Chest: Nodular opacity with spiculation in the lateral right lung apex is stable by CT and demonstrates unch anged mild FDG uptake, SUVmax 2.8, previously 2.6. FDG uptake of right paratracheal lymph nodes is less than blood pool. The more superior paratracheal lymph node is decreased in size, the more inferior lymph nodes are stable. There are small bilateral pleural effusions without significant change. Coronary artery disease and c ardiomegaly are stable. Respiratory motion artifact limits evaluation of the lungs. Part solid nodule of the left lower lobe is stable by CT, there is no appreciable FDG uptake. The nodule in the right lower lobe has decreased in size, the AP dimension is 4 mm, previously 7 mm. This nodule does not dem onstrate increased FDG uptake. There is an irregular nodular opacity in the left upper lobe that is s table by CT, image 117. This nodule has faint FDG uptake barely exceeding lung parenchyma background, unchanged. Ground glass opacities in the posterior right upper lobe are unchanged. Left mastectomy. Abdomen and pelvis: There is no evidence of FDG-avid disease. Cholelithiasis. There is severe atherosclerotic calcification of the abdominal aorta. Musculoskeletal: No FDG avid bone lesion is identified. The sclerotic lesion of the left ischium is not FDG avid. IMPRESSION: 1. Spiculated nodular opacity in the lateral right lung apex demonstrates mild FDG uptake that is un changed. 2. Right paratracheal lymph nodes demonstrate FDG uptake less than blood pool. 3. Left upper lobe and bilateral lower lobe pulmonary nodules may not be reliably evaluated with PET due to respiratory motion artifact and small size or subsolid composition. Right lower lobe nodule i s smaller, left lower lobe nodule is non-FDG avid, and left upper lobe nodule is unchanged. Suggest c ontinued CT follow-up. 4. There are no FDG avid bone lesions. Electronically signed by: Gonzalo Lantigua MD (05/12/2021 11:36 AM) [id number]
== END ==
LOC: PETSC 12:25
PROVIDERS: ATTEND Internal Medicine Hematology & Oncology
DX: C79.51 Secondary malignant neoplasm of bone (principal); C50.212 Malignant neoplasm of upper-inner quadrant of left female breast; R91.8 Other nonspecific abnormal finding of lung field; J90 Pleural effusion, not elsewhere classified; I25.10 Atherosclerotic heart disease of native coronary artery without angina pectoris; I51.7 Cardiomegaly; K80.20 Calculus of gallbladder without cholecystitis without obstruction; I70.0 Atherosclerosis of aorta
CPT/HCPCS: 78815; A9552

== ENCOUNTER → 2021-05-16 | Outpatient (CLI) | payer MEDICARE, BC ==
[2021-05-16 11:15] LABS: BASO % 0 % (0-3); EOS % 0 % (0-3); HEMATOCRIT 37.2 % (36.0-47.0); LYMPH # 0.8 x10^3/uL (1.0-4.8); LYMPH % 7 % (24-48); MEAN CORPUSCULAR HEMOGLOBIN 29 pg (25-35); MEAN CORPUSCULAR HGB CONC 32 g/dL (31-37); MEAN CORPUSCULAR VOLUME 89 fL (79-100); MONO # 0.4 x10^3/uL (0.0-1.1); MONO % 4 % (0-9); NEUT # 10.4 x10^3/uL (1.8-7.7); NEUT % 89 % (31-73); PLATELET COUNT 324 x10^3/uL (140-400); RED BLOOD COUNT 4.16 x10^6/uL (3.50-5.40); RED CELL DISTRIBUTION WIDTH 17.2 % (11.5-14.5); WHITE BLOOD COUNT 11.6 x10^3/uL (4.0-11.0)
[2021-05-16 11:35] LABS: CALCIUM 9.1 mg/dL (8.5-10.1); GFR 23.9; POTASSIUM 4.8 mmol/L (3.5-5.1)
[2021-05-16 11:41] LABS: ALBUMIN 3.1 g/dL (3.4-5.0); ALBUMIN/GLOBULIN RATIO 0.8 (1.0-1.7); TOTAL BILIRUBIN 0.2 mg/dL (0.2-1.0); TOTAL PROTEIN 6.8 g/dL (6.4-8.2)
[2021-05-16 12:23] LABS: % BANDS 1 % (0-9); % LYMPHS 6 % (24-48); % MONOS 4 % (0-10); % SEGS 89 % (35-66); PLT ESTIMATE ADEQUATE (ADEQUATE); POLYCHROMASIA SLIGHT
[2021-05-16 12:24] LABS: ANISOCYTOSIS SLIGHT; OVALOCYTES FEW
== END ==
LOC: ONCLAB 10:14
PROVIDERS: ATTEND Internal Medicine Hematology & Oncology
DX: C34.11 Malignant neoplasm of upper lobe, right bronchus or lung (principal)
CPT/HCPCS: 36415; 80053; 85007; 85025

== ENCOUNTER → 2021-05-23 | Outpatient (CLI) | payer MEDICARE, BC ==
[2021-05-23 09:30] LABS: BASO % 0 % (0-3); EOS # 0.1 x10^3/uL (0.0-0.7); EOS % 1 % (0-3); HEMOGLOBIN 12.4 g/dL (12.0-15.5); LYMPH # 1.5 x10^3/uL (1.0-4.8); LYMPH % 17 % (24-48); MEAN CORPUSCULAR HEMOGLOBIN 29 pg (25-35); MEAN CORPUSCULAR HGB CONC 32 g/dL (31-37); MEAN CORPUSCULAR VOLUME 91 fL (79-100); MONO # 0.7 x10^3/uL (0.0-1.1); MONO % 8 % (0-9); NEUT # 6.7 x10^3/uL (1.8-7.7); NEUT % 74 % (31-73); PLATELET COUNT 238 x10^3/uL (140-400); RED BLOOD COUNT 4.27 x10^6/uL (3.50-5.40); RED CELL DISTRIBUTION WIDTH 18.7 % (11.5-14.5)
[2021-05-23 09:41] LABS: CALCIUM 9.2 mg/dL (8.5-10.1); CREATININE 1.2 mg/dL (0.6-1.0); GFR 43.1; POTASSIUM 4.1 mmol/L (3.5-5.1)
[2021-05-23 09:47] LABS: ALBUMIN 3.1 g/dL (3.4-5.0); TOTAL BILIRUBIN 0.3 mg/dL (0.2-1.0); TOTAL PROTEIN 6.3 g/dL (6.4-8.2)
== END ==
LOC: ONCLAB 08:57
PROVIDERS: ATTEND Internal Medicine Hematology & Oncology
DX: C34.11 Malignant neoplasm of upper lobe, right bronchus or lung (principal); E03.2 Hypothyroidism due to medicaments and other exogenous substances
CPT/HCPCS: 36415; 80053; 84443; 85025

== ENCOUNTER → 2021-06-06 | Outpatient (CLI) | payer MEDICARE, BC ==
[2021-06-06 10:43] LABS: BASO # 0.1 x10^3/uL (0.0-0.2); BASO % 1 % (0-3); EOS # 0.2 x10^3/uL (0.0-0.7); EOS % 2 % (0-3); HEMATOCRIT 38.7 % (36.0-47.0); HEMOGLOBIN 12.5 g/dL (12.0-15.5); LYMPH # 0.8 x10^3/uL (1.0-4.8); LYMPH % 11 % (24-48); MEAN CORPUSCULAR HEMOGLOBIN 30 pg (25-35); MEAN CORPUSCULAR HGB CONC 32 g/dL (31-37); MEAN CORPUSCULAR VOLUME 92 fL (79-100); MONO # 0.3 x10^3/uL (0.0-1.1); MONO % 4 % (0-9); NEUT # 5.6 x10^3/uL (1.8-7.7); NEUT % 81 % (31-73); PLATELET COUNT 247 x10^3/uL (140-400); RED BLOOD COUNT 4.23 x10^6/uL (3.50-5.40); RED CELL DISTRIBUTION WIDTH 20.3 % (11.5-14.5); WHITE BLOOD COUNT 6.9 x10^3/uL (4.0-11.0)
[2021-06-06 10:56] LABS: CALCIUM 8.9 mg/dL (8.5-10.1); CREATININE 1.2 mg/dL (0.6-1.0); GFR 43.1; POTASSIUM 3.8 mmol/L (3.5-5.1)
[2021-06-06 11:00] LABS: ALBUMIN/GLOBULIN RATIO 0.9 (1.0-1.7); TOTAL BILIRUBIN 0.4 mg/dL (0.2-1.0); TOTAL PROTEIN 6.2 g/dL (6.4-8.2)
[2021-06-06 11:55] LABS: % BANDS 2 % (0-9); % EOS 1 % (0-5); % LYMPHS 12 % (24-48); % MONOS 7 % (0-10); % MYELOS 1 % (0-0); % SEGS 77 % (35-66); PLT ESTIMATE ADEQUATE (ADEQUATE)
== END ==
LOC: ONCLAB 10:04
PROVIDERS: ATTEND Physician Assistant
DX: C79.51 Secondary malignant neoplasm of bone (principal); C50.212 Malignant neoplasm of upper-inner quadrant of left female breast; C34.11 Malignant neoplasm of upper lobe, right bronchus or lung; N18.32 Chronic kidney disease, stage 3b; M87.851 Other osteonecrosis, right femur; L03.113 Cellulitis of right upper limb; E03.2 Hypothyroidism due to medicaments and other exogenous substances
CPT/HCPCS: 36415; 80053; 84436; 84443; 85007; 85025

== ENCOUNTER → 2021-06-20 | Outpatient (CLI) | payer MEDICARE, BC ==
[2021-06-20 09:57] LABS: BASO % 1 % (0-3); CREATININE 1.3 mg/dL (0.6-1.0); EOS # 0.2 x10^3/uL (0.0-0.7); EOS % 2 % (0-3); GFR 39.3; HEMATOCRIT 36.9 % (36.0-47.0); HEMOGLOBIN 12.2 g/dL (12.0-15.5); LYMPH # 1.5 x10^3/uL (1.0-4.8); LYMPH % 16 % (24-48); MEAN CORPUSCULAR HEMOGLOBIN 30 pg (25-35); MEAN CORPUSCULAR HGB CONC 33 g/dL (31-37); MEAN CORPUSCULAR VOLUME 92 fL (79-100); MONO # 0.7 x10^3/uL (0.0-1.1); MONO % 8 % (0-9); NEUT # 6.8 x10^3/uL (1.8-7.7); NEUT % 74 % (31-73); PLATELET COUNT 239 x10^3/uL (140-400); RED BLOOD COUNT 4.03 x10^6/uL (3.50-5.40); RED CELL DISTRIBUTION WIDTH 20.6 % (11.5-14.5); WHITE BLOOD COUNT 9.2 x10^3/uL (4.0-11.0)
[2021-06-20 10:03] LABS: ALBUMIN/GLOBULIN RATIO 0.9 (1.0-1.7); TOTAL BILIRUBIN 0.4 mg/dL (0.2-1.0); TOTAL PROTEIN 6.2 g/dL (6.4-8.2)
== END ==
LOC: ONCLAB 09:25
PROVIDERS: ATTEND Physician Assistant
DX: C34.11 Malignant neoplasm of upper lobe, right bronchus or lung (principal)
CPT/HCPCS: 36415; 80053; 85025

== ENCOUNTER → 2021-06-27 | Outpatient (CLI) | payer MEDICARE, BC ==
[2021-06-27 15:31] LABS: CALCIUM 9.1 mg/dL (8.5-10.1); CREATININE 1.3 mg/dL (0.6-1.0); GFR 39.3; POTASSIUM 4.5 mmol/L (3.5-5.1)
[2021-06-27 15:36] LABS: BASO % 0 % (0-3); EOS % 0 % (0-3); HEMATOCRIT 39.6 % (36.0-47.0); LYMPH # 0.8 x10^3/uL (1.0-4.8); LYMPH % 7 % (24-48); MEAN CORPUSCULAR HEMOGLOBIN 30 pg (25-35); MEAN CORPUSCULAR HGB CONC 33 g/dL (31-37); MEAN CORPUSCULAR VOLUME 92 fL (79-100); MONO # 0.2 x10^3/uL (0.0-1.1); MONO % 2 % (0-9); NEUT # 10.8 x10^3/uL (1.8-7.7); NEUT % 91 % (31-73); PLATELET COUNT 274 x10^3/uL (140-400); RED CELL DISTRIBUTION WIDTH 20.9 % (11.5-14.5); WHITE BLOOD COUNT 11.8 x10^3/uL (4.0-11.0)
[2021-06-27 15:38] LABS: ALBUMIN 3.2 g/dL (3.4-5.0); ALBUMIN/GLOBULIN RATIO 0.9 (1.0-1.7); TOTAL BILIRUBIN 0.5 mg/dL (0.2-1.0); TOTAL PROTEIN 6.6 g/dL (6.4-8.2)
[2021-06-27 16:37] LABS: % ATYL 1 % (0-0); % LYMPHS 3 % (24-48); % MONOS 3 % (0-10)
[2021-06-27 16:39] LABS: % MYELOS 1 % (0-0); % SEGS 92 % (35-66); ANISOCYTOSIS MOD; PLT ESTIMATE ADEQUATE (ADEQUATE); POLYCHROMASIA SLIGHT
== END ==
LOC: ONCLAB 14:36
PROVIDERS: ATTEND Internal Medicine Hematology & Oncology
DX: C34.11 Malignant neoplasm of upper lobe, right bronchus or lung (principal)
CPT/HCPCS: 36415; 80053; 85007; 85025

== ENCOUNTER → 2021-07-01 | Outpatient (CLI) | payer MEDICARE, BC ==
[~2021-07-01] MED LIST changes: +REGADENOSON 0.4 MG/5 ML DISP.SYRIN. IV ONE
--- NOTE | 2021-07-01 15:23 | RAD ---
MR#: [id number] Date of Study: 07/01/2021 Ordering Physician: BYRON GARNICA, Referring Physician: ALEXI GREGORY Tech: JEM Seaman APPROVED REPORT Test Type: Pharmacological Stress Nurse/Tech: TIFFANIE RG Test Indications: CARDIOMYOPATHY Cardiac History: AFIB, HTN, PPM- SEE EMR Medications: SEE EMR Medical History: LUNG/BREAST CA- SEE EMR Resting ECG: AFIB Resting Heart Rate: 85 bpm Resting Blood Pressure: 143/81mmHg Pretest Chest Pain: No chest pain Nurse/Tech Notes IRREGULAR RATE, LUNGS DIMINISHED, DENIED CP, PT WAS WEARING 3L/NC, VSS. Consent: The procedure was explained to the patient in lay terms. Informed consent was witnessed. Anibal eout was entered into [employer]. History and Stress Test performed by RT Maday ([place]) (N) Pharm. Details Pharmacologic stress testing was performed using 0.4mg per 5ml of regadenoson given intravenously ove r 7-10 seconds. Stress Symptoms ONLY COMPLAINT PT HAD WAS A BRIEF "FUNNY FEELING", VSS, DENIED CHEST PAIN OR ANY OTHER SYMTOMS. PT TO LERATED TESTING WELL. POST EXERCISE Reason for Termination: Infusion complete Max HR: 145 bpm Max Blood Pressure: 139/72mmHg Blood Pressure response to exercise: Normal blood pressure response during stress. Heart Rate response to exercise: WNL Chest Pain: No. Arrhythmia: . AFIB W/ FEW PVC'S NOTED ST Change: No. INTERPRETATION Stress EKG Conclusion: No evidence of stress induced EKG changes. Imaging Protocol IMAGE PROTOCOL: Rest Tc-99m/stress Tc-99m 1 day Rest: Stress: Viability: Radiopharm.Tc99m NnyqsnszgCg37v Sestamibi Dose10.5mCi 31mCi Duration 15min. 13min. Img Date 07/01/2021 07/01/2021 Inj-Img Cmtc81zhn. 60min. Rest Admin Site:IV - Right AntecubitalAdministrator:RT Maday (R)(N) Stress Admin Site: IV - Right AntecubitalAdministrator: Sharmin Elizondo, RT (R)(N) STRESS DATA End Diast. Vol.77.0mlLVEDV index BSA40.0ml End Syst. Vol.26.0mlLVESV index BSA13.0ml Myocardial Ugsi897.0gEject. Hnjjfpwt17.0% Stress Scores Regional WT0.00Summed WT12.00 Regional WM0.00Summed WM12.00 The rest and stress images show normal perfusion, normal contraction and thickening. LV Perf. Quant 17 Seg. SSS0.00 17 Seg. SRS0.00 17 Seg. SDS0.00 Stress Defect Extent (% LAD)0.00Rest Defect Extent (% LAD)0.00Rev. Defect Extent (% LAD)0.00 Stress Defect Extent (% LCX) 0.00Rest Defect Extent (% LCX)0.00Rev. Defect Extent (% LCX)0.00 Stress Defect Extent (% RCA)0.00Rest Defect Extent (% RCA)0.00Rev. Defect Extent (% RCA)0.00 Stress Defect Extent (% WAN)0.00Rest Defect Extent (% WAN)0.00Rev. Defect Extent (% WAN)0.00 Other Information Quality:Average Risk Assessment: Low Risk Conclusion 1. No evidence of EKG changes with stress testing. 2. Normal perfusion at stress/rest. 3. Low risk study. 4. EF > 60%. Signed by : Byron Garnica, Electronically Approved : 07/01/2021 15:23:19
== END ==
LOC: NM 08:31
PROVIDERS: ATTEND Internal Medicine Cardiovascular Disease
DX: I42.9 Cardiomyopathy, unspecified (principal)
CPT/HCPCS: 78452; 93017; A9500; J2785

== ENCOUNTER → 2021-07-04 | Outpatient (CLI) | payer MEDICARE, BC ==
[~2021-07-04] MED LIST changes: -REGADENOSON 0.4 MG/5 ML DISP.SYRIN. IV ONE
[2021-07-04 11:11] LABS: BASO % 0 % (0-3); EOS % 0 % (0-3); HEMATOCRIT 39.9 % (36.0-47.0); HEMOGLOBIN 13.2 g/dL (12.0-15.5); LYMPH # 1.8 x10^3/uL (1.0-4.8); LYMPH % 15 % (24-48); MEAN CORPUSCULAR HEMOGLOBIN 31 pg (25-35); MEAN CORPUSCULAR HGB CONC 33 g/dL (31-37); MEAN CORPUSCULAR VOLUME 92 fL (79-100); MONO # 0.8 x10^3/uL (0.0-1.1); MONO % 7 % (0-9); NEUT # 9.7 x10^3/uL (1.8-7.7); NEUT % 78 % (31-73); PLATELET COUNT 288 x10^3/uL (140-400); RED BLOOD COUNT 4.33 x10^6/uL (3.50-5.40); RED CELL DISTRIBUTION WIDTH 20.8 % (11.5-14.5); WHITE BLOOD COUNT 12.5 x10^3/uL (4.0-11.0)
[2021-07-04 11:16] LABS: CREATININE 1.5 mg/dL (0.6-1.0); GFR 33.3; POTASSIUM 3.5 mmol/L (3.5-5.1)
[2021-07-04 11:22] LABS: ALBUMIN 3.1 g/dL (3.4-5.0); ALBUMIN/GLOBULIN RATIO 0.9 (1.0-1.7); TOTAL BILIRUBIN 0.4 mg/dL (0.2-1.0); TOTAL PROTEIN 6.4 g/dL (6.4-8.2)
[2021-07-04 13:15] LABS: % LYMPHS 18 % (24-48); % MONOS 4 % (0-10); % SEGS 78 % (35-66); ANISOCYTOSIS MOD; PLT ESTIMATE ADEQUATE (ADEQUATE)
== END ==
LOC: ONCLAB 10:45
PROVIDERS: ATTEND Internal Medicine Hematology & Oncology
DX: C34.11 Malignant neoplasm of upper lobe, right bronchus or lung (principal)
CPT/HCPCS: 36415; 80053; 85007; 85025

== ENCOUNTER → 2021-07-18 | Outpatient (CLI) | payer MEDICARE, BC ==
[2021-07-18 10:47] LABS: CALCIUM 8.9 mg/dL (8.5-10.1); CREATININE 1.3 mg/dL (0.6-1.0); GFR 39.3; POTASSIUM 4.1 mmol/L (3.5-5.1)
[2021-07-18 10:54] LABS: ALBUMIN 3.1 g/dL (3.4-5.0); ALBUMIN/GLOBULIN RATIO 0.9 (1.0-1.7); TOTAL BILIRUBIN 0.5 mg/dL (0.2-1.0); TOTAL PROTEIN 6.4 g/dL (6.4-8.2)
[2021-07-18 10:59] LABS: BASO % 0 % (0-3); EOS # 0.1 x10^3/uL (0.0-0.7); EOS % 1 % (0-3); HEMATOCRIT 41.1 % (36.0-47.0); HEMOGLOBIN 13.3 g/dL (12.0-15.5); LYMPH % 10 % (24-48); MEAN CORPUSCULAR HEMOGLOBIN 31 pg (25-35); MEAN CORPUSCULAR HGB CONC 32 g/dL (31-37); MEAN CORPUSCULAR VOLUME 94 fL (79-100); MONO # 0.3 x10^3/uL (0.0-1.1); MONO % 3 % (0-9); NEUT # 9.1 x10^3/uL (1.8-7.7); NEUT % 87 % (31-73); PLATELET COUNT 216 x10^3/uL (140-400); RED BLOOD COUNT 4.37 x10^6/uL (3.50-5.40); RED CELL DISTRIBUTION WIDTH 20.9 % (11.5-14.5); WHITE BLOOD COUNT 10.5 x10^3/uL (4.0-11.0)
[2021-07-18 12:15] LABS: % BANDS 2 % (0-9); % LYMPHS 4 % (24-48); % METAS 1 % (0-0); % MONOS 2 % (0-10); % SEGS 91 % (35-66)
[2021-07-18 12:16] LABS: ANISOCYTOSIS MOD; PLT ESTIMATE ADEQUATE (ADEQUATE)
== END ==
LOC: ONCLAB 08:46
PROVIDERS: ATTEND Internal Medicine Hematology & Oncology
DX: C34.11 Malignant neoplasm of upper lobe, right bronchus or lung (principal)
CPT/HCPCS: 36415; 80053; 85007; 85025

== ENCOUNTER → 2021-08-01 | Outpatient (CLI) | payer MEDICARE, BC ==
[2021-08-01 11:36] LABS: BASO % 0 % (0-3); EOS % 0 % (0-3); HEMATOCRIT 40.1 % (36.0-47.0); HEMOGLOBIN 13.4 g/dL (12.0-15.5); LYMPH # 0.8 x10^3/uL (1.0-4.8); LYMPH % 10 % (24-48); MEAN CORPUSCULAR HEMOGLOBIN 32 pg (25-35); MEAN CORPUSCULAR HGB CONC 33 g/dL (31-37); MEAN CORPUSCULAR VOLUME 94 fL (79-100); MONO # 0.2 x10^3/uL (0.0-1.1); MONO % 3 % (0-9); NEUT # 7.4 x10^3/uL (1.8-7.7); NEUT % 87 % (31-73); PLATELET COUNT 257 x10^3/uL (140-400); RED BLOOD COUNT 4.25 x10^6/uL (3.50-5.40); RED CELL DISTRIBUTION WIDTH 19.8 % (11.5-14.5); WHITE BLOOD COUNT 8.4 x10^3/uL (4.0-11.0)
[2021-08-01 11:47] LABS: CALCIUM 8.5 mg/dL (8.5-10.1); CREATININE 1.6 mg/dL (0.6-1.0); GFR 30.9; POTASSIUM 3.8 mmol/L (3.5-5.1)
[2021-08-01 11:53] LABS: ALBUMIN 3.2 g/dL (3.4-5.0); TOTAL BILIRUBIN 0.4 mg/dL (0.2-1.0); TOTAL PROTEIN 6.5 g/dL (6.4-8.2)
== END ==
LOC: ONCLAB 11:02
PROVIDERS: ATTEND Internal Medicine Hematology & Oncology
DX: C79.51 Secondary malignant neoplasm of bone (principal); C50.212 Malignant neoplasm of upper-inner quadrant of left female breast; E03.2 Hypothyroidism due to medicaments and other exogenous substances
CPT/HCPCS: 36415; 80053; 85025

== ENCOUNTER → 2021-08-07 | Outpatient (CLI) | payer MEDICARE, BC ==
[2021-08-07 11:50] LABS: BASO % 0 % (0-3); EOS % 0 % (0-3); HEMATOCRIT 41.2 % (36.0-47.0); HEMOGLOBIN 13.4 g/dL (12.0-15.5); LYMPH % 11 % (24-48); MEAN CORPUSCULAR HEMOGLOBIN 31 pg (25-35); MEAN CORPUSCULAR HGB CONC 33 g/dL (31-37); MEAN CORPUSCULAR VOLUME 95 fL (79-100); MONO # 0.3 x10^3/uL (0.0-1.1); MONO % 3 % (0-9); NEUT % 85 % (31-73); PLATELET COUNT 235 x10^3/uL (140-400); RED BLOOD COUNT 4.32 x10^6/uL (3.50-5.40); RED CELL DISTRIBUTION WIDTH 19.2 % (11.5-14.5); WHITE BLOOD COUNT 9.4 x10^3/uL (4.0-11.0)
[2021-08-07 12:03] LABS: CALCIUM 8.3 mg/dL (8.5-10.1); CREATININE 1.4 mg/dL (0.6-1.0); GFR 36.1; POTASSIUM 3.9 mmol/L (3.5-5.1)
[2021-08-07 12:08] LABS: ALBUMIN 3.1 g/dL (3.4-5.0); ALBUMIN/GLOBULIN RATIO 0.9 (1.0-1.7); TOTAL BILIRUBIN 0.4 mg/dL (0.2-1.0); TOTAL PROTEIN 6.4 g/dL (6.4-8.2)
== END ==
LOC: ONCLAB 11:32
PROVIDERS: ATTEND Internal Medicine Hematology & Oncology
DX: C50.212 Malignant neoplasm of upper-inner quadrant of left female breast (principal)
CPT/HCPCS: 36415; 80053; 85025

== ENCOUNTER → 2021-08-20 | Outpatient (CLI) | payer MEDICARE, BC ==
[2021-08-20 11:06] LABS: BASO % 0 % (0-3); EOS % 0 % (0-3); HEMATOCRIT 39.4 % (36.0-47.0); HEMOGLOBIN 12.8 g/dL (12.0-15.5); LYMPH # 1.1 x10^3/uL (1.0-4.8); LYMPH % 12 % (24-48); MEAN CORPUSCULAR HEMOGLOBIN 31 pg (25-35); MEAN CORPUSCULAR HGB CONC 33 g/dL (31-37); MEAN CORPUSCULAR VOLUME 97 fL (79-100); MONO # 0.3 x10^3/uL (0.0-1.1); MONO % 3 % (0-9); NEUT # 7.2 x10^3/uL (1.8-7.7); NEUT % 84 % (31-73); PLATELET COUNT 257 x10^3/uL (140-400); RED BLOOD COUNT 4.09 x10^6/uL (3.50-5.40); WHITE BLOOD COUNT 8.6 x10^3/uL (4.0-11.0)
[2021-08-20 11:23] LABS: CALCIUM 8.1 mg/dL (8.5-10.1); CREATININE 1.4 mg/dL (0.6-1.0); GFR 36.1; POTASSIUM 4.1 mmol/L (3.5-5.1)
[2021-08-20 11:30] LABS: ALBUMIN 3.1 g/dL (3.4-5.0); ALBUMIN/GLOBULIN RATIO 0.9 (1.0-1.7); TOTAL BILIRUBIN 0.5 mg/dL (0.2-1.0); TOTAL PROTEIN 6.6 g/dL (6.4-8.2)
== END ==
LOC: ONCLAB 10:42
PROVIDERS: ATTEND Physician Assistant
DX: C50.212 Malignant neoplasm of upper-inner quadrant of left female breast (principal)
CPT/HCPCS: 36415; 80053; 85025

== ENCOUNTER → 2021-08-22 | Outpatient (CLI) | payer MEDICARE, BC ==
--- NOTE | 2021-08-22 18:46 | RAD ---
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 Restaging lung cancer. COMPARISON: PET/CT 04/09/2021 PET/CT SCAN TECHNIQUE: Approximately 60 minutes after the intravenous administration of 10.8 millicur ies of F-18 fluorodeoxyglucose (FDG), PET imaging of the body from the base of the skull through the mid thighs was performed. Reconstruction in all 3 planes were performed. The patient's serum glucose level at the time of the F-18 FDG administration was 123 mg/dL. A noncontrast CT scan was obtained fo r attenuation correction and anatomic localization purposes only and is not considered a diagnostic C T scan. PQRS compliance Statement One or more of the following individualized dose reduction techniques were utilized for this study: 1. Automated exposure control 2. Adjustment of the mA and/or kV according to patient size 3. Use of iterative reconstruction technique FINDINGS: HEAD AND NECK: CHEST: No significant change in right upper lobe spiculated mass measuring about 3.5 cm with mild FDG uptake along the periphery, SUV max 3.4. Two 1 cm nodules in the left apex and in the medial left lo wer lobe have no FDG uptake above background. Right paratracheal lymph nodes are unchanged in size an d have low level FDG uptake, SUV max around 2.2-2.6. Decreased, trace pleural effusions. There is mil d FDG uptake within the region of the right nipple, SUV max 2.2, possibly new. No axillary lymphadeno russell. Surgical changes of left mastectomy. Heart is enlarged. There are coronary calcifications. Pac emaker/ICD present. ABDOMEN AND PELVIS: No lymphadenopathy in the abdomen and pelvis. There is cholelithiasis. Severe avelina cified aortoiliac atherosclerosis. Infrarenal abdominal aortic ectasia measuring 2.5 cm. MUSCULOSKELETAL: No abnormal FDG uptake in the bones. There are few sclerotic foci in the left hemisa sheridan and iliac wing with no FDG uptake above background. IMPRESSION: 1. Stable appearance of right upper lobe spiculated mass and right paratracheal lymph nodes with mild FDG uptake. Direct SUV comparisons with the prior PET/CT are limited due to the fact that this exam was analyzed with different PET CT software. 2. The two 1 cm nodules in the left lung are unchanged in size and have no FDG uptake above backgroun d, although evaluation by PET may be limited due to small size and possible semisolid composition. 3. There is low level FDG uptake in the region of the right nipple, possibly new. This is nonspecific . Correlate with mammogram. Electronically signed by: Lucy Myrick MD (08/22/2021 6:43 PM) [id number]
== END ==
LOC: PETSC 08:58
PROVIDERS: ATTEND Physician Assistant
DX: C34.11 Malignant neoplasm of upper lobe, right bronchus or lung (principal); R91.8 Other nonspecific abnormal finding of lung field; K80.20 Calculus of gallbladder without cholecystitis without obstruction; I51.7 Cardiomegaly; I25.10 Atherosclerotic heart disease of native coronary artery without angina pectoris; I70.0 Atherosclerosis of aorta; I70.8 Atherosclerosis of other arteries; I77.811 Abdominal aortic ectasia
CPT/HCPCS: 78815; A9552

== ENCOUNTER → 2021-08-27 | Outpatient (CLI) | payer MEDICARE, BC ==
[2021-08-27 11:56] LABS: BASO # 0.1 x10^3/uL (0.0-0.2); BASO % 1 % (0-3); EOS # 0.1 x10^3/uL (0.0-0.7); EOS % 2 % (0-3); HEMATOCRIT 36.9 % (36.0-47.0); HEMOGLOBIN 12.1 g/dL (12.0-15.5); LYMPH % 15 % (24-48); MEAN CORPUSCULAR HEMOGLOBIN 32 pg (25-35); MEAN CORPUSCULAR HGB CONC 33 g/dL (31-37); MEAN CORPUSCULAR VOLUME 96 fL (79-100); MONO # 0.4 x10^3/uL (0.0-1.1); MONO % 6 % (0-9); NEUT # 5.2 x10^3/uL (1.8-7.7); NEUT % 76 % (31-73); PLATELET COUNT 298 x10^3/uL (140-400); RED BLOOD COUNT 3.82 x10^6/uL (3.50-5.40); RED CELL DISTRIBUTION WIDTH 16.7 % (11.5-14.5); WHITE BLOOD COUNT 6.9 x10^3/uL (4.0-11.0)
[2021-08-27 12:08] LABS: CALCIUM 8.1 mg/dL (8.5-10.1); CREATININE 1.4 mg/dL (0.6-1.0); GFR 36.1; POTASSIUM 3.6 mmol/L (3.5-5.1)
[2021-08-27 12:14] LABS: ALBUMIN 2.9 g/dL (3.4-5.0); ALBUMIN/GLOBULIN RATIO 0.9 (1.0-1.7); TOTAL BILIRUBIN 0.4 mg/dL (0.2-1.0); TOTAL PROTEIN 6.3 g/dL (6.4-8.2)
== END ==
LOC: ONCLAB 11:35
PROVIDERS: ATTEND Internal Medicine Hematology & Oncology
DX: C50.212 Malignant neoplasm of upper-inner quadrant of left female breast (principal)
CPT/HCPCS: 36415; 80053; 85025

== ENCOUNTER → 2021-09-15 | Outpatient (CLI) | payer MEDICARE, BC ==
[2021-09-15 13:11] LABS: BASO # 0.1 x10^3/uL (0.0-0.2); BASO % 1 % (0-3); EOS # 0.3 x10^3/uL (0.0-0.7); EOS % 3 % (0-3); HEMATOCRIT 37.5 % (36.0-47.0); HEMOGLOBIN 12.3 g/dL (12.0-15.5); LYMPH # 0.9 x10^3/uL (1.0-4.8); LYMPH % 10 % (24-48); MEAN CORPUSCULAR HEMOGLOBIN 32 pg (25-35); MEAN CORPUSCULAR HGB CONC 33 g/dL (31-37); MEAN CORPUSCULAR VOLUME 97 fL (79-100); MONO # 0.5 x10^3/uL (0.0-1.1); MONO % 6 % (0-9); NEUT # 7.6 x10^3/uL (1.8-7.7); NEUT % 81 % (31-73); PLATELET COUNT 311 x10^3/uL (140-400); RED BLOOD COUNT 3.87 x10^6/uL (3.50-5.40); RED CELL DISTRIBUTION WIDTH 15.5 % (11.5-14.5); WHITE BLOOD COUNT 9.3 x10^3/uL (4.0-11.0)
[2021-09-15 13:17] LABS: CALCIUM 8.2 mg/dL (8.5-10.1); CREATININE 1.5 mg/dL (0.6-1.0); GFR 33.3; POTASSIUM 3.7 mmol/L (3.5-5.1)
[2021-09-15 13:23] LABS: ALBUMIN 2.9 g/dL (3.4-5.0); ALBUMIN/GLOBULIN RATIO 0.9 (1.0-1.7); TOTAL BILIRUBIN 0.5 mg/dL (0.2-1.0); TOTAL PROTEIN 6.3 g/dL (6.4-8.2)
== END ==
LOC: ONCLAB 12:52
PROVIDERS: ATTEND Physician Assistant
DX: C50.212 Malignant neoplasm of upper-inner quadrant of left female breast (principal)
CPT/HCPCS: 36415; 80053; 85025

== ENCOUNTER → 2021-09-22 | Outpatient (CLI) | payer MEDICARE, BC ==
[2021-09-22 13:00] LABS: BASO % 0 % (0-3); EOS % 0 % (0-3); HEMATOCRIT 39.1 % (36.0-47.0); HEMOGLOBIN 12.4 g/dL (12.0-15.5); LYMPH # 0.8 x10^3/uL (1.0-4.8); LYMPH % 7 % (24-48); MEAN CORPUSCULAR HEMOGLOBIN 30 pg (25-35); MEAN CORPUSCULAR HGB CONC 32 g/dL (31-37); MEAN CORPUSCULAR VOLUME 96 fL (79-100); MONO # 0.3 x10^3/uL (0.0-1.1); MONO % 3 % (0-9); NEUT # 9.4 x10^3/uL (1.8-7.7); NEUT % 90 % (31-73); PLATELET COUNT 338 x10^3/uL (140-400); RED BLOOD COUNT 4.07 x10^6/uL (3.50-5.40); RED CELL DISTRIBUTION WIDTH 15.5 % (11.5-14.5); WHITE BLOOD COUNT 10.5 x10^3/uL (4.0-11.0)
[2021-09-22 13:11] LABS: CREATININE 1.6 mg/dL (0.6-1.0); GFR 30.9; POTASSIUM 3.9 mmol/L (3.5-5.1)
[2021-09-22 13:17] LABS: TOTAL BILIRUBIN 0.4 mg/dL (0.2-1.0); TOTAL PROTEIN 5.9 g/dL (6.4-8.2)
== END ==
LOC: ONCLAB 12:42
PROVIDERS: ATTEND Internal Medicine Hematology & Oncology
DX: C50.212 Malignant neoplasm of upper-inner quadrant of left female breast (principal)
CPT/HCPCS: 36415; 80053; 85025

== ENCOUNTER → 2021-10-03 | Outpatient (CLI) | payer MEDICARE, BC ==
[2021-10-03 12:39] LABS: BASO % 0 % (0-3); EOS % 0 % (0-3); HEMOGLOBIN 12.4 g/dL (12.0-15.5); LYMPH # 0.5 x10^3/uL (1.0-4.8); LYMPH % 6 % (24-48); MEAN CORPUSCULAR HEMOGLOBIN 31 pg (25-35); MEAN CORPUSCULAR HGB CONC 32 g/dL (31-37); MEAN CORPUSCULAR VOLUME 96 fL (79-100); MONO # 0.2 x10^3/uL (0.0-1.1); MONO % 3 % (0-9); NEUT # 8.4 x10^3/uL (1.8-7.7); NEUT % 91 % (31-73); PLATELET COUNT 242 x10^3/uL (140-400); RED BLOOD COUNT 4.05 x10^6/uL (3.50-5.40); RED CELL DISTRIBUTION WIDTH 15.6 % (11.5-14.5); WHITE BLOOD COUNT 9.2 x10^3/uL (4.0-11.0)
[2021-10-03 12:49] LABS: CALCIUM 8.7 mg/dL (8.5-10.1); CREATININE 1.3 mg/dL (0.6-1.0); GFR 39.3
[2021-10-03 12:55] LABS: ALBUMIN/GLOBULIN RATIO 0.9 (1.0-1.7); TOTAL BILIRUBIN 0.6 mg/dL (0.2-1.0); TOTAL PROTEIN 6.3 g/dL (6.4-8.2)
== END ==
LOC: ONCLAB 12:15
PROVIDERS: ATTEND Internal Medicine Hematology & Oncology
DX: C50.212 Malignant neoplasm of upper-inner quadrant of left female breast (principal)
CPT/HCPCS: 36415; 80053; 85025

== ENCOUNTER → 2021-10-20 | Outpatient (CLI) | payer MEDICARE, BC ==
[2021-10-20 12:35] LABS: BASO % 1 % (0-3); EOS # 0.1 x10^3/uL (0.0-0.7); EOS % 1 % (0-3); HEMATOCRIT 38.4 % (36.0-47.0); HEMOGLOBIN 12.3 g/dL (12.0-15.5); LYMPH # 0.8 x10^3/uL (1.0-4.8); LYMPH % 9 % (24-48); MEAN CORPUSCULAR HEMOGLOBIN 31 pg (25-35); MEAN CORPUSCULAR HGB CONC 32 g/dL (31-37); MEAN CORPUSCULAR VOLUME 95 fL (79-100); MONO # 0.3 x10^3/uL (0.0-1.1); MONO % 4 % (0-9); NEUT # 7.5 x10^3/uL (1.8-7.7); NEUT % 86 % (31-73); PLATELET COUNT 292 x10^3/uL (140-400); RED BLOOD COUNT 4.04 x10^6/uL (3.50-5.40); RED CELL DISTRIBUTION WIDTH 15.1 % (11.5-14.5); WHITE BLOOD COUNT 8.7 x10^3/uL (4.0-11.0)
[2021-10-20 12:56] LABS: CALCIUM 7.8 mg/dL (8.5-10.1); CREATININE 1.4 mg/dL (0.6-1.0); GFR 36.1; POTASSIUM 4.1 mmol/L (3.5-5.1)
[2021-10-20 13:03] LABS: ALBUMIN/GLOBULIN RATIO 0.8 (1.0-1.7); TOTAL BILIRUBIN 0.4 mg/dL (0.2-1.0); TOTAL PROTEIN 6.9 g/dL (6.4-8.2)
== END ==
LOC: ONCLAB 12:09
PROVIDERS: ATTEND Internal Medicine Hematology & Oncology
DX: C34.11 Malignant neoplasm of upper lobe, right bronchus or lung (principal)
CPT/HCPCS: 36415; 80053; 85025

== ENCOUNTER → 2021-11-18 | Outpatient (CLI) | payer MEDICARE, BC ==
--- NOTE | 2021-11-18 11:57 | RAD ---
Left lower extremity venous duplex study Clinical History: Lower extremity pain, edema Technique: Using a combination of real time ultrasound imaging and color-flow and pulse Doppler imagi ng techniques, including spectral analysis, graded compression and augmentation, duplex evaluation of the deep venous system of the left lower extremity was performed. Multiple images were obtained. Findings: There is no sonographic evidence of deep venous thrombosis involving the visualized deep ve nous structures of the left lower extremity Impression: No evidence of deep venous thrombosis involving the left lower extremity Electronically signed by: Moody Hobson MD (11/18/2021 11:55 AM) [id number]
== END ==
LOC: US 11:20
PROVIDERS: ATTEND Internal Medicine Hematology & Oncology
DX: M79.662 Pain in left lower leg (principal); R60.9 Edema, unspecified
CPT/HCPCS: 93971

== ENCOUNTER → 2021-11-25 | Outpatient (CLI) | payer MEDICARE, BC ==
[2021-11-25 10:45] LABS: BASO # 0.1 x10^3/uL (0.0-0.2); BASO % 1 % (0-3); EOS # 1.2 x10^3/uL (0.0-0.7); EOS % 14 % (0-3); HEMATOCRIT 38.2 % (36.0-47.0); HEMOGLOBIN 11.8 g/dL (12.0-15.5); LYMPH # 1.2 x10^3/uL (1.0-4.8); LYMPH % 15 % (24-48); MEAN CORPUSCULAR HEMOGLOBIN 29 pg (25-35); MEAN CORPUSCULAR HGB CONC 31 g/dL (31-37); MEAN CORPUSCULAR VOLUME 93 fL (79-100); MONO # 0.8 x10^3/uL (0.0-1.1); MONO % 10 % (0-9); NEUT # 4.9 x10^3/uL (1.8-7.7); NEUT % 60 % (31-73); PLATELET COUNT 285 x10^3/uL (140-400); RED BLOOD COUNT 4.11 x10^6/uL (3.50-5.40); RED CELL DISTRIBUTION WIDTH 16.2 % (11.5-14.5); WHITE BLOOD COUNT 8.2 x10^3/uL (4.0-11.0)
[2021-11-25 11:05] LABS: CALCIUM 8.1 mg/dL (8.5-10.1); CREATININE 1.5 mg/dL (0.6-1.0); GFR 33.3; POTASSIUM 3.8 mmol/L (3.5-5.1)
[2021-11-25 11:11] LABS: ALBUMIN 2.9 g/dL (3.4-5.0); ALBUMIN/GLOBULIN RATIO 0.8 (1.0-1.7); TOTAL BILIRUBIN 0.4 mg/dL (0.2-1.0); TOTAL PROTEIN 6.6 g/dL (6.4-8.2)
[2021-11-25 11:15] LABS: % BASOS 2 % (0-3); % EOS 12 % (0-5); % LYMPHS 20 % (24-48); % MONOS 7 % (0-10); % SEGS 59 % (35-66)
[2021-11-25 11:16] LABS: PLT ESTIMATE ADEQUATE (ADEQUATE)
== END ==
LOC: ONCLAB 10:26
PROVIDERS: ATTEND Internal Medicine Hematology & Oncology
DX: C50.212 Malignant neoplasm of upper-inner quadrant of left female breast (principal)
CPT/HCPCS: 36415; 80053; 85007; 85025

== ENCOUNTER → 2021-11-28 | Outpatient (CLI) | payer MEDICARE, BC ==
--- NOTE | 2021-11-28 15:56 | RAD ---
EXAM: PET/CT skull base to thigh. HISTORY: Lung cancer. TECHNIQUE: CT of the entire body was performed for the purposes of attenuation correction. 13 mCi F-1 8 fluorodeoxyglucose were administered intravenously. Blood glucose level at the time of administrati on was 112 mg/dL. After 45 minutes uptake, positron emission tomography of the entire body was perfor med. The PET and CT data were fused and interpreted in combination on a dedicated workstation. Report ed standard uptake values (SUV) are the maximum SUV within a lesional volumetric region of interest. SUV normalization is via body mass. COMPARISON: 05/09/2021. FINDINGS: Mediastinal blood pool SUV reference value: 4.8. There is mild increased radiotracer activity within maximum SUV of 3.8 associated with masslike later al right apical opacity with adjacent pleural thickening and surrounding architectural distortion. Th is previously demonstrated a prior maximum SUV of 2.8. This lesion is stable in size, with the solid component measuring approximately 3.3 cm. There is no additional abnormal radiotracer activity. Speci fically, there is no abnormal tracer activity above the blood pool associated with mediastinal or hil ar lymph nodes. The CT portion of the exam demonstrates a stable lateral right apical mass with pleural thickening an d architectural distortion measuring approximately 3.3 cm within its most solid component. There is a stable 7 mm nodule within the left upper lobe. There are stable nonspecific groundglass opacities wi thin the medial posterior right upper lobe. There is no pneumothorax. There are increased small right greater than left pleural effusions. There is emphysema. There is bilateral basilar atelectasis or s carring. There is cardiomegaly. There is a cardiac pacemaker. There is coronary artery calcification. There is aortic and aortic branch vessel atherosclerotic plaque. There are prominent mediastinal lymph nodes. For reference purposes, there is a 1.1 cm right paratracheal lymph node and 1.2 cm subcarinal lymph node. There is stable in appearance. No hepatic lesion is seen. There is cholelithiasis. No pancreatic lesion is seen. The spleen is susan l in size. The adrenal glands are unremarkable. There is renal cortical lobulation likely due to scar ring. There is no suspicious renal lesion. There is no appendicitis. There is no bowel obstruction or abnormal bowel wall thickening. The bladder is unremarkable. The uterus is absent. There is no retro peritoneal or mesenteric lymphadenopathy. There is no neck lymphadenopathy. There is a small right maxillary sinus mucous retention cyst and mi ld bilateral maxillary sinus mucosal thickening. The mastoid air cells are clear. There are left mast ectomy changes. There are degenerative changes throughout the spine. There is no acute or suspicious osseous finding. IMPRESSION: 1. Slight interval increase in the degree of radiotracer activity associated with masslike lateral ri ght apical opacity with adjacent pleural thickening and surrounding architectural distortion, with a maximum SUV of 3.8 compared to a prior measurement of 2.8. 2. No additional abnormal radiotracer activity. Specifically, no evidence of abnormal radiotracer act ivity above the blood pool associated with mediastinal or hilar lymph nodes or a 7 mm nodule within t he left upper lobe, the latter of which may be too small to characterize with PET/CT. 3. Please refer to the above report for additional findings regarding the non-PET portion of the exam . Electronically signed by: Sharmin Polanco MD (11/28/2021 3:54 PM) [id number]
== END ==
LOC: PETSC 11:49
PROVIDERS: ATTEND Internal Medicine Hematology & Oncology
DX: C79.51 Secondary malignant neoplasm of bone (principal); C50.212 Malignant neoplasm of upper-inner quadrant of left female breast; K80.20 Calculus of gallbladder without cholecystitis without obstruction; J90 Pleural effusion, not elsewhere classified; J43.9 Emphysema, unspecified; J34.89 Other specified disorders of nose and nasal sinuses; J34.1 Cyst and mucocele of nose and nasal sinus; I25.10 Atherosclerotic heart disease of native coronary artery without angina pectoris; I70.0 Atherosclerosis of aorta
CPT/HCPCS: 78815; A9552

== ENCOUNTER → 2021-12-31 | Outpatient (CLI) | payer MEDICARE, BC ==
[2021-12-31 11:14] LABS: BASO % 1 % (0-3); EOS # 0.1 x10^3/uL (0.0-0.7); EOS % 1 % (0-3); HEMATOCRIT 38.4 % (36.0-47.0); HEMOGLOBIN 12.6 g/dL (12.0-15.5); LYMPH # 1.6 x10^3/uL (1.0-4.8); LYMPH % 18 % (24-48); MEAN CORPUSCULAR HEMOGLOBIN 30 pg (25-35); MEAN CORPUSCULAR HGB CONC 33 g/dL (31-37); MEAN CORPUSCULAR VOLUME 90 fL (79-100); MONO # 0.7 x10^3/uL (0.0-1.1); MONO % 9 % (0-9); NEUT # 6.1 x10^3/uL (1.8-7.7); NEUT % 71 % (31-73); PLATELET COUNT 297 x10^3/uL (140-400); RED BLOOD COUNT 4.26 x10^6/uL (3.50-5.40); RED CELL DISTRIBUTION WIDTH 16.1 % (11.5-14.5); WHITE BLOOD COUNT 8.6 x10^3/uL (4.0-11.0)
[2021-12-31 11:22] LABS: CALCIUM 9.1 mg/dL (8.5-10.1); CREATININE 1.6 mg/dL (0.6-1.0); GFR 30.9; POTASSIUM 3.6 mmol/L (3.5-5.1)
[2021-12-31 11:27] LABS: ALBUMIN 3.4 g/dL (3.4-5.0); TOTAL BILIRUBIN 0.3 mg/dL (0.2-1.0); TOTAL PROTEIN 6.9 g/dL (6.4-8.2)
== END ==
LOC: ONCLAB 10:50
PROVIDERS: ATTEND Internal Medicine Hematology & Oncology
DX: C50.212 Malignant neoplasm of upper-inner quadrant of left female breast (principal)
CPT/HCPCS: 36415; 80053; 85025

== ENCOUNTER 2022-01-14 03:32 | Emergency (ER) | payer MEDICARE, BC ==
[~2022-01-14] VITALS: Ht 170.2 cm; Wt 81.6 kg
[2022-01-14 04:49] VITALS: BP 135/60
--- NOTE | 2022-01-14 04:52 | RAD ---
EXAMINATION: CT HEAD AND MAXILLOFACIAL WO CLINICAL HISTORY: Head and neck pain. Fall from bed onto face; on Xarelto TECHNIQUE: Serial axial images without IV contrast were obtained from the vertex to the foramen magnum. Spiral high resolution axial unenhanced images were obtained through the facial bones with sagittal a nd coronal planar reconstructions. CT Dose Reduction Employed: One or more of the following individualized dose reduction techniques wer e utilized for this examination: 1. Automated exposure control 2. Adjustment of the mA and/or kV ac cording to patient size 3. Use of iterative reconstruction technique. COMPARISON: 10/13/2020 FINDINGS: BRAIN: Acute Change: No evidence of an acute contusion or other acute parenchymal process. Hemorrhage: No evidence of acute intracranial hemorrhage. Mass Lesion/Mass Effect: No evidence of intracranial mass or extraaxial fluid collection. No signific ant mass effect. Chronic Change: Scattered patchy foci of hypoattenuation in the supratentorial white matter, nonspeci fic but likely represents mild microvascular ischemia. Atherosclerotic calcification of the anterior and posterior circulation. Parenchyma: Mild to moderate generalized volume loss. Ventricles: Ventricular enlargement concordant with degree of parenchymal volume loss. Skull Base: No evidence of acute calvarial fracture. MAXILLOFACIAL: Soft Tissues: No significant superficial soft tissue swelling. Facial Bones: No evidence of acute facial bone fracture. Orbits: No evidence of acute orbital fracture. Globes are intact. Soft tissue planes of the orbits ma intained. Paranasal Sinuses: Mild mucoperiosteal thickening/small mucous retention cysts in the maxillary sinus es. IMPRESSION: BRAIN: No evidence of acute intracranial abnormality. MAXILLOFACIAL: No evidence of acute facial bone fracture. Electronically signed by: Puneet Plasencia DO (01/14/2022 4:49 AM) [facility]
--- NOTE | 2022-01-14 04:54 | PHYS DOC ---
Past Medical History Past Medical History: Cancer, COPD, DVT, Hypertension Additional Past Medical Histor: breast and lung cancer, PE, CRF Past Surgical History: Cancer Surgery Additional Past Surgical Histo: trach, left masectomy, right upper lobectomy, left lower lobe removed Smoking Status: Former Smoker Alcohol Use: Occasionally Drug Use: None Adult General Chief Complaint Chief Complaint: MECHANICAL FALL HPI HPI The patient is an 81-year-old comorbid female on Xarelto who presents for evaluation of injury sustained in a mechanical fall out of bed prior to arrival. Patient states she recently got a new bed and believes she was sleeping on the edge of the bed. She woke up after apparently landing on the floor beside the bed. Struck her face on the ground and had a transient nosebleed which resolved prior to initial evaluation here. Denies loss of consciousness, vomiting or amnesia to events. Denies pain anywhere. States she was concerned because she is on Xarelto and had heard that head injuries on Xarelto can be dangerous so she elected emergency department evaluation this morning. Patient states she was feeling well when she went to bed. Vital signs are entirely appropriate here on her typical home oxygen. Review of Systems Review of Systems A 12 point review of systems was completed and was negative except where noted in HPI above. Allergies Allergies Allergies Coded Allergies Type Severity Reaction Last Updated Verified No Known Drug Allergies 04/04/21 No Physical Exam Physical Exam Elderly female appearing nontoxic and in no acute distress. Head is normocephalic and atraumatic. Neck is supple and nontender. Oropharynx is moist. Stigmata of recent epistaxis to the right anterior naris. No nasal septal hematoma. No instability of the midface. No malocclusion. No hemotympanum bilaterally. No other signs basilar fracture. Lungs are clear to auscultation at all stations. There is a normal S1 and S2 without rubs or gallops and capillary refill is appropriate, less than 2 seconds globally. Abdomen is soft, nontender nondistended. Skin is warm and dry without cyanosis, clubbing or edema. Psychiatrically, the patient demonstrates appropriate mood and affect and is alert. Evaluation of the extremities reveals BUEs and BLEs neurovascularly intact distally with strength 5 out of 5, sensation intact light touch in all nerve distributions, radial, DP and PT pulses 2+ and equal bilaterally, capillary refill less than 2 seconds, hands and feet warm and well perfused. No dependent peripheral edema distally. No calf tenderness or swelling bilaterally. Homans test is negative bilaterally. Mild abrasion to the left knee anteriorly. No discomfort with ranging of the knee in question or of any other joints of the bilateral upper or lower extremities. Neurologically, patient moves all extremities equally, is alert and oriented x4 no lateralizing deficits are seen. Current Patient Data Vital Signs Vital Signs Date Time Temp Pulse Resp B/P (MAP) Pulse Ox O2 Delivery O2 Flow Rate FiO2 01/14/22 03:50 98.1 100 20 138/84 (102) 100 Nasal Cannula 3.0 98.1 EKG EKG [] Radiology/Procedures Radiology/Procedures EXAMINATION: CT HEAD AND MAXILLOFACIAL WO CLINICAL HISTORY: Head and neck pain. Fall from bed onto face; on Xarelto TECHNIQUE: Serial axial images without IV contrast were obtained from the vertex to the foramen magnum. Spiral high resolution axial unenhanced images were obtained through the facial bones with sagittal and coronal planar reconstructions. CT Dose Reduction Employed: One or more of the following individualized dose reduction techniques were utilized for this examination: 1. Automated exposure control 2. Adjustment of the mA and/or kV according to patient size 3. Use of iterative reconstruction technique. COMPARISON: 10/13/2020 FINDINGS: BRAIN: Acute Change: No evidence of an acute contusion or other acute parenchymal process. Hemorrhage: No evidence of acute intracranial hemorrhage. Mass Lesion/Mass Effect: No evidence of intracranial mass or extraaxial fluid collection. No significant mass effect. Chronic Change: Scattered patchy foci of hypoattenuation in the supratentorial white matter, nonspecific but likely represents mild microvascular ischemia. Atherosclerotic calcification of the anterior and posterior circulation. Parenchyma: Mild to moderate generalized volume loss. Ventricles: Ventricular enlargement concordant with degree of parenchymal volume loss. Skull Base: No evidence of acute calvarial fracture. MAXILLOFACIAL: Soft Tissues: No significant superficial soft tissue swelling. Facial Bones: No evidence of acute facial bone fracture. Orbits: No evidence of acute orbital fracture. Globes are intact. Soft tissue planes of the orbits maintained. Paranasal Sinuses: Mild mucoperiosteal thickening/small mucous retention cysts in the maxillary sinuses. IMPRESSION: BRAIN: No evidence of acute intracranial abnormality. MAXILLOFACIAL: No evidence of acute facial bone fracture. Electronically signed by: Puneet Ingram DO (01/14/2022 4:49 AM) [facility] DICTATED and SIGNED BY: PUNEET INGRAM DO DATE: 01/14/22 0436 [] Course & Med Decision Making Course & Med Decision Making Well-appearing 81-year-old on Xarelto here for a fall out of bed with injury to her nose. Checking head and maxillofacial CT imaging and will then reevaluate. 0500: Patient is resting comfortably in no acute distress on reassessment. Imaging unremarkable. No evidence of emergency condition has been identified. Well-appearing female, ambulatory in the emergency department without assistance as per her baseline. Will discharge home with son. Will prescribe some Afrin for use as needed should nosebleed recur. Patient reports a small tender spot just inside the right naris which she states has been present for some time and for which she would like some medicine. Will prescribe some topical mupirocin. Patient is to follow-up closely with primary care and understands that if she feels worse instead of better or develops other new symptoms of concern that she should return to the emergency department immediately for reevaluation. All questions are answered. Dragon Disclaimer Dragon Disclaimer This electronic medical record was generated, in whole or in part, using a voice recognition dictation system. Departure Departure Impression: Primary Impression: Fall from bed, initial encounter Additional Impressions: Abrasion, left knee, initial encounter Acute anterior epistaxis Disposition: 01 HOME / SELF CARE / HOMELESS Condition: STABLE Referrals: TOY DAWSON MD (PCP) Patient Instructions: Fall Prevention and Home Safety, Nosebleed Additional Instructions: Follow-up very closely with your primary care doctor in the office in the next 2 to 4 days for a reevaluation of your symptoms and a discussion of next best steps in care. You may take an extra strength Tylenol every 6 hours as needed for any discomfort. If nosebleed recurs, blow your nose to remove clot, then spray Afrin twice into the nostril that is bleeding. Then, apply good strong direct pressure just underneath the bridge of your nose on both sides for 20 minutes. If bleeding continues, repeat this procedure at least one further time. You may try using mupirocin antibacterial ointment on the small lesion inside her nostril that we discussed. Apply twice a day to the area for about a week. Return to the emergency department right away for worsening symptoms of any kind or with any other new symptoms of concern. Scripts Mupirocin (MUPIROCIN OINTMENT) 22 Gm Oint...g. 1 EHSAN TP BID for WOUND CARE, #1 EACH Prov: TERRI GUZMAN MD 01/14/22 Oxymetazoline Hcl (AFRIN) 30 Ml Evans 2 SPR NS QID PRN for nosebleed, #1 SPRAY Prov: TERRI GUZMAN MD 01/14/22 Problem Qualifiers TERRI GUZMAN MD Jan 14, 2022 04:54
[2022-01-14] MEDS ORDERED: OXYM30SP25 NS (05:09)
[2022-01-14] MEDS ORDERED: MUPI22OI2 TP (05:09)
== END 2022-01-14 06:00 | disposition home or self-care (01) ==
LOC: ER 03:32
DX: S80.212A Abrasion, left knee, initial encounter (principal); R04.0 Epistaxis; R51.9 Headache, unspecified; M54.2 Cervicalgia; J44.9 Chronic obstructive pulmonary disease, unspecified; I10 Essential (primary) hypertension; Z87.891 Personal history of nicotine dependence; Z86.718 Personal history of other venous thrombosis and embolism; W06.XXXA Fall from bed, initial encounter; Y93.89 Activity, other specified; Y92.89 Other specified places as the place of occurrence of the external cause; Y99.8 Other external cause status
CPT/HCPCS: 70450; 70486; 99284-25

== ENCOUNTER → 2022-01-28 | Outpatient (CLI) | payer MEDICARE, BC ==
[2022-01-14 04:49] VITALS: BP 135/60
[~2022-01-28] MED LIST changes: -ACET1TAB33 PO; +ACET1TAB56 PO; +MUPI22OI2 TP; +OXYM30SP25 NS
[2022-01-28 10:59] LABS: BASO # 0.1 x10^3/uL (0.0-0.2); BASO % 1 % (0-3); EOS # 0.2 x10^3/uL (0.0-0.7); EOS % 3 % (0-3); HEMATOCRIT 38.8 % (36.0-47.0); HEMOGLOBIN 12.8 g/dL (12.0-15.5); LYMPH # 1.4 x10^3/uL (1.0-4.8); LYMPH % 21 % (24-48); MEAN CORPUSCULAR HEMOGLOBIN 30 pg (25-35); MEAN CORPUSCULAR HGB CONC 33 g/dL (31-37); MEAN CORPUSCULAR VOLUME 90 fL (79-100); MONO # 0.8 x10^3/uL (0.0-1.1); MONO % 11 % (0-9); NEUT # 4.4 x10^3/uL (1.8-7.7); NEUT % 64 % (31-73); PLATELET COUNT 270 x10^3/uL (140-400); RED BLOOD COUNT 4.32 x10^6/uL (3.50-5.40); RED CELL DISTRIBUTION WIDTH 16.7 % (11.5-14.5); WHITE BLOOD COUNT 6.8 x10^3/uL (4.0-11.0)
[2022-01-28 11:17] LABS: CALCIUM 8.8 mg/dL (8.5-10.1); CREATININE 1.7 mg/dL (0.6-1.0); GFR 28.8; POTASSIUM 4.1 mmol/L (3.5-5.1)
[2022-01-28 11:24] LABS: ALBUMIN 3.3 g/dL (3.4-5.0); ALBUMIN/GLOBULIN RATIO 0.9 (1.0-1.7); TOTAL BILIRUBIN 0.5 mg/dL (0.2-1.0)
== END ==
LOC: ONCLAB 10:38
PROVIDERS: ATTEND Internal Medicine Hematology & Oncology
DX: C79.51 Secondary malignant neoplasm of bone (principal); C50.212 Malignant neoplasm of upper-inner quadrant of left female breast
CPT/HCPCS: 36415; 80053; 85025